=== PATIENT | male | born 1945 | race Caucasian/White ===

== ENCOUNTER 2017-01-03 12:51 | Inpatient (IN) | payer MEDICARE, OTHER ==
[2017-01-03] MEDS ORDERED: IPRATROPIUM-ALBUTEROL 3 ML NEB INHALATION STA (13:48)
--- NOTE | 2017-01-03 13:50 | ED ---
Fall HPI - General Chief Complaint: Fall Stated Complaint: Fall Time Seen by Provider: 01/03/17 13:21 Source: EMS Mode of arrival: EMS - History of Present Illness Initial Comments: The patient is a 71-year-old male who presents from [facility] with a chief complaint of fall. The patient was found on the floor, face down by staff earlier this afternoon. Nobody witnessed this fall. It is uncertain as to whether the patient hit his head during the fall. Afterwards, the patient was noted to be short of breath but had no other symptoms. His shortness of breath improved but his SpO2 has remained relatively low in the range of 90-92%. Reviewing the patient's medical record, his normal SpO2 is 93- 97%. The patient has an underlying history of dementia. He is AAO 1. Patient does not take any antiplatelet medications nor does he take any systemic anticoagulation. The patient has been acting normally since the fall, per staff at [facility]. The patient has no complaints. He denies any cough, fever or chills. Reviewing the patient's medical record, he does have a history of CHF as well as COPD. - Related Data Home Medications Medication Instructions Recorded Confirmed Budesonide/Formoterol Fumarate 2 puff INHALATION RT-BID 01/03/17 01/03/17 [Symbicort 160-4.5 Mcg Inhaler] Colloidal Oatmeal [Eucerin Eczema 1 applic TOPICAL BID 01/03/17 01/03/17 Relief] Dimethicone/Zinc Oxide [Inzo Zinc 1 applic TOPICAL BID 01/03/17 01/03/17 Oxide Barrier Cream] Docusate [Colace] 100 mg PO BID 01/03/17 01/03/17 Donepezil [Aricept] 5 mg PO HS 01/03/17 01/03/17 Lisinopril [Zestril] 20 mg PO BID 01/03/17 01/03/17 Loratadine [Claritin] 10 mg PO DAILY 01/03/17 01/03/17 Ocusoft Lid Scrub Pad 1 applic BOTH EYES HS 01/03/17 01/03/17 Sertraline HCl [Zoloft] 100 mg PO DAILY 01/03/17 01/03/17 Sertraline [Zoloft] 50 mg PO DAILY 01/03/17 01/03/17 Tamsulosin [Flomax] 0.4 mg PO HS 01/03/17 01/03/17 amLODIPine [Norvasc] 5 mg PO DAILY 01/03/17 01/03/17 Allergies Allergy/AdvReac Type Severity Reaction Status Date / Time No Known Allergies Allergy Verified 01/03/17 13:41 Review of Systems ROS Statement: Those systems with pertinent positive or pertinent negative responses have been documented in the HPI. ROS Other: All systems not noted in ROS Statement are negative. Limitations: ROS unobtainable due to patients medical condition (limited ROS secondary to underlying dementia) Constitutional: Denies: fever, chills Eyes: Denies: eye pain ENT: Denies: ear pain, throat pain, dental pain Respiratory: Reports: wheezes. Denies: cough, dyspnea, hemoptysis, stridor Cardiovascular: Denies: chest pain, palpitations, dyspnea on exertion Endocrine: Denies: fatigue Gastrointestinal: Denies: abdominal pain, nausea, vomiting, diarrhea, constipation Genitourinary: Denies: urgency, dysuria, frequency Musculoskeletal: Denies: back pain Skin: Denies: rash, lesions, change in color Neurological: Denies: headache, weakness, numbness, paresthesias Psychiatric: Denies: anxiety, depression Past Medical History Past Medical History: Heart Failure, COPD, Dementia, GERD/Reflux, Hypertension, Vascular Disorder History of Any Multi-Drug Resistant Organisms: None Reported Past Surgical History: Unable to Obtain Past Psychological History: Depression Smoking Status: Unknown if ever smoked Past Alcohol Use History: None Reported Past Drug Use History: None Reported General Exam Limitations: altered mental status General appearance: alert, in no apparent distress Head exam: Present: atraumatic, normocephalic, normal inspection Eye exam: Present: normal appearance, PERRL, EOMI. Absent: scleral icterus, conjunctival injection, periorbital swelling Pupils: Present: normal accommodation, other (2mm, equal and reactive) ENT exam: Present: normal exam, normal oropharynx, mucous membranes moist Neck exam: Present: normal inspection. Absent: tenderness Respiratory exam: Present: wheezes (trace expiratory wheezes appreciated bilaterally) Cardiovascular Exam: Present: regular rate, normal rhythm GI/Abdominal exam: Present: soft. Absent: distended, tenderness, guarding, rebound Extremities exam: Present: normal inspection, full ROM, normal capillary refill. Absent: tenderness, pedal edema Back exam: Present: normal inspection, full ROM, other (no step-offs noted on exam). Absent: tenderness, muscle spasm, paraspinal tenderness, vertebral tenderness Neurological exam: Present: alert, CN II-XII intact, other (AAOx1 (baseline is AAOx1)) Psychiatric exam: Present: normal affect, normal mood Skin exam: Present: warm, dry, intact, other (no signs of wound or injury) Course Vital Signs 01/03/17 01/03/17 01/03/17 13:21 14:52 14:56 Temperature 99.5 F Pulse Rate 91 80 83 Respiratory 18 18 Rate Blood Pressure 107/60 108/64 O2 Sat by Pulse 91 L 96 Oximetry 01/03/17 01/03/17 15:02 15:31 Temperature Pulse Rate 80 81 Respiratory 18 Rate Blood Pressure 122/100 O2 Sat by Pulse 96 Oximetry Medical Decision Making - Medical Decision Making Patient is a 71-year-old male who presents with a chief complaint of fall at nursing facility. The patient had an unwitnessed fall. As such, uncertain as to whether patient hit his head. The patient has no complaints here in the ED. He has had his baseline mentation and orientation. Physical exam is normal without any acute abnormality. Patient does not take any antiplatelet or anticoagulation medications. Check CT head and C-spine. Trauma labs including a CPK given the patient was down for unknown period of time. Check an EKG as well as a troponin. Given underlying history of CHF, also check a BNP. Provide patient with DuoNeb breathing treatment to see if this helps to improve his relatively low SpO2 to the normal range. 3:18 PM Straight catheterization attempted with no urine return. Patient's WBC is elevated without defined source of infection. Suspect COPD exacerbation secondary to patient's decreased SpO2 on initial presentation. This has improved following DuoNeb treatment. Patient could have potential UTI as well. Lactic Acid is not elevated. Blood cultures are pending. Will cover with Rocephin and Azithromycin to cover for potential respiratory and urinary source of infection. Will provide patient with IVF slowly given hx of CHF in the setting of elevated BNP. Patient resting comfortably at this point in time. 3:[address] Trotter, who accepts admission of the patient. He has requested a CT Chest. - Lab Data Result diagrams: 01/03/17 13:27 01/03/17 13:27 Lab Results 01/03/17 01/03/17 01/03/17 Range/Units 13:27 13:27 13:27 WBC 25.2 H* (3.8-10.6) k/uL RBC 4.88 (4.30-5.90) m/uL Hgb 15.2 (13.0-17.5) gm/dL Hct 47.4 (39.0-53.0) % MCV 97.0 (80.0-100.0) fL MCH 31.1 (25.0-35.0) pg MCHC 32.1 (31.0-37.0) g/dL RDW 14.5 (11.5-15.5) % Plt Count 160 (150-450) k/uL Neutrophils % (Manual) 90.5 % Band Neutrophils % 1.0 % Lymphocytes % (Manual) 3.0 % Monocytes % (Manual) 5.5 % Neutrophils # (Manual) 23.1 H (1.3-7.7) k/uL Lymphocytes # (Manual) 0.8 L (1.0-4.8) k/uL Monocytes # (Manual) 1.4 H (0-1.0) k/uL Nucleated RBCs 0 (0-0) /100 WBC Manual Slide Review Performed RBC Morphology Normal PT (9.0-12.0) sec INR (<1.1) APTT (22.0-30.0) sec Sodium 140 (137-145) mmol/L Potassium 4.6 (3.5-5.1) mmol/L Chloride 108 H (98-107) mmol/L Carbon Dioxide 22 (22-30) mmol/L Anion Gap 10 mmol/L BUN 24 H (9-20) mg/dL Creatinine 1.36 H (0.66-1.25) mg/dL Est GFR (MDRD) Af Amer >60 (>60 ml/min/1.73 sqM) Est GFR (MDRD) Non-Af 52 (>60 ml/min/1.73 sqM) Glucose 117 H (74-99) mg/dL Plasma Lactic Acid Michael (0.7-2.0) mmol/L Calcium 8.8 (8.4-10.2) mg/dL Magnesium 2.1 (1.6-2.3) mg/dL Total Bilirubin 1.5 H (0.2-1.3) mg/dL AST 30 (17-59) U/L ALT 12 L (21-72) U/L Alkaline Phosphatase 96 (38-126) U/L Creatine Kinase 92 (55-170) U/L Troponin I (0.000-0.034) ng/mL NT-Pro-B Natriuret Pep 2120 pg/mL Total Protein 7.3 (6.3-8.2) g/dL Albumin 3.8 (3.5-5.0) g/dL Blood Type Blood Type Recheck Antibody Screen Spec Expiration Date 01/03/17 01/03/17 01/03/17 Range/Units 13:27 13:27 13:27 WBC (3.8-10.6) k/uL RBC (4.30-5.90) m/uL Hgb (13.0-17.5) gm/dL Hct (39.0-53.0) % MCV (80.0-100.0) fL MCH (25.0-35.0) pg MCHC (31.0-37.0) g/dL RDW (11.5-15.5) % Plt Count (150-450) k/uL Neutrophils % (Manual) % Band Neutrophils % % Lymphocytes % (Manual) % Monocytes % (Manual) % Neutrophils # (Manual) (1.3-7.7) k/uL Lymphocytes # (Manual) (1.0-4.8) k/uL Monocytes # (Manual) (0-1.0) k/uL Nucleated RBCs (0-0) /100 WBC Manual Slide Review RBC Morphology PT 12.2 H (9.0-12.0) sec INR 1.2 (<1.1) APTT 26.2 (22.0-30.0) sec Sodium (137-145) mmol/L Potassium (3.5-5.1) mmol/L Chloride (98-107) mmol/L Carbon Dioxide (22-30) mmol/L Anion Gap mmol/L BUN (9-20) mg/dL Creatinine (0.66-1.25) mg/dL Est GFR (MDRD) Af Amer (>60 ml/min/1.73 sqM) Est GFR (MDRD) Non-Af (>60 ml/min/1.73 sqM) Glucose (74-99) mg/dL Plasma Lactic Acid Michael 1.7 (0.7-2.0) mmol/L Calcium (8.4-10.2) mg/dL Magnesium (1.6-2.3) mg/dL Total Bilirubin (0.2-1.3) mg/dL AST (17-59) U/L ALT (21-72) U/L Alkaline Phosphatase (38-126) U/L Creatine Kinase (55-170) U/L Troponin I 0.016 (0.000-0.034) ng/mL NT-Pro-B Natriuret Pep pg/mL Total Protein (6.3-8.2) g/dL Albumin (3.5-5.0) g/dL Blood Type Blood Type Recheck Antibody Screen Spec Expiration Date 01/03/17 Range/Units 14:45 WBC (3.8-10.6) k/uL RBC (4.30-5.90) m/uL Hgb (13.0-17.5) gm/dL Hct (39.0-53.0) % MCV (80.0-100.0) fL MCH (25.0-35.0) pg MCHC (31.0-37.0) g/dL RDW (11.5-15.5) % Plt Count (150-450) k/uL Neutrophils % (Manual) % Band Neutrophils % % Lymphocytes % (Manual) % Monocytes % (Manual) % Neutrophils # (Manual) (1.3-7.7) k/uL Lymphocytes # (Manual) (1.0-4.8) k/uL Monocytes # (Manual) (0-1.0) k/uL Nucleated RBCs (0-0) /100 WBC Manual Slide Review RBC Morphology PT (9.0-12.0) sec INR (<1.1) APTT (22.0-30.0) sec Sodium (137-145) mmol/L Potassium (3.5-5.1) mmol/L Chloride (98-107) mmol/L Carbon Dioxide (22-30) mmol/L Anion Gap mmol/L BUN (9-20) mg/dL Creatinine (0.66-1.25) mg/dL Est GFR (MDRD) Af Amer (>60 ml/min/1.73 sqM) Est GFR (MDRD) Non-Af (>60 ml/min/1.73 sqM) Glucose (74-99) mg/dL Plasma Lactic Acid Michael (0.7-2.0) mmol/L Calcium (8.4-10.2) mg/dL Magnesium (1.6-2.3) mg/dL Total Bilirubin (0.2-1.3) mg/dL AST (17-59) U/L ALT (21-72) U/L Alkaline Phosphatase (38-126) U/L Creatine Kinase (55-170) U/L Troponin I (0.000-0.034) ng/mL NT-Pro-B Natriuret Pep pg/mL Total Protein (6.3-8.2) g/dL Albumin (3.5-5.0) g/dL Blood Type A Positive Blood Type Recheck CABO Indicated Antibody Screen NEGATIVE Spec Expiration Date 01/06/2017 - 2315 - EKG Data -: EKG Interpreted by Me 01/03/17 13:37 EKG demonstrates normal sinus rhythm with a rate of 90. There are no concerning ST T changes. TN and QRS intervals are within normal limits. The QTc is slightly prolonged at 467. Disposition Clinical Impression: COPD with acute exacerbation, Leukocytosis, Acute respiratory failure with hypoxia, Fall Disposition: ADMITTED IP TO THIS HOSP Condition: Stable Referrals: Ro Baer MD [Primary Care Provider] - 1-2 days Decision to Admit Reason: Admit from EC Decision Date: 01/03/17 Decision Time: 15:56
[2017-01-03 14:09] LABS: CH 31.6; CHCM 32.8; HCT 47.4 % (39.0-53.0); HDW 2.38; HGB 15.2 gm/dL (13.0-17.5); MCH 31.1 pg (25.0-35.0); MCHC 32.1 g/dL (31.0-37.0); Mean Platelet Volume 7.3; RBC 4.88 m/uL (4.30-5.90); RDW 14.5 % (11.5-15.5); WBC (Perox) 24.51
[2017-01-03 14:10] LABS: WBC 25.2 k/uL (3.8-10.6)
[2017-01-03 14:15] LABS: INR 1.2 (<1.1); Partial Thromboplastin Time 26.2 sec (22.0-30.0); Prothrombin Time 12.2 sec (9.0-12.0)
[2017-01-03 14:17] LABS: Anion Gap 10 mmol/L; Calcium 8.8 mg/dL (8.4-10.2); Carbon Dioxide 22 mmol/L (22-30); Chloride 108 mmol/L (98-107); Creatine Kinase 92 U/L (55-170); Glucose 117 mg/dL (74-99); Non-African American GFR(MDRD) 52 (>60 ml/min/1.73 sqM); Sodium 140 mmol/L (137-145); Total Bilirubin 1.5 mg/dL (0.2-1.3)
[2017-01-03 14:19] LABS: Add Differential Manual Differential
[2017-01-03 14:21] LABS: Manual Review Performed; Nucleated Red Blood Cells 0 /100 WBC (0-0); Total Cells Counted 200
[2017-01-03 14:22] LABS: RBC Morphology Normal
[2017-01-03 14:24] LABS: Total Protein 7.3 g/dL (6.3-8.2)
[2017-01-03 14:25] LABS: Blood Urea Nitrogen 24 mg/dL (9-20); Potassium 4.6 mmol/L (3.5-5.1)
[2017-01-03 14:26] LABS: ALT 12 U/L (21-72); AST 30 U/L (17-59); Alkaline Phosphatase 96 U/L (38-126); Magnesium 2.1 mg/dL (1.6-2.3)
--- NOTE | 2017-01-03 14:39 | XR ---
EXAMINATION TYPE: XR chest 2V DATE OF EXAM: 01/03/2017 COMPARISON: NONE HISTORY: Trauma and pain TECHNIQUE: Frontal and lateral views of the chest are obtained. FINDINGS: Aortic stent graft is in place. Patient is rotated. There are overlying cardiac leads. Exa m is expiratory. No evident pneumothorax or pleural effusion. Arthropathy noted within the shoulders. No increased lung opacity. Heart is enlarged. Pulmonary vascularity and ernestina within normal limits. N o evident fracture. IMPRESSION: Cardiomegaly, expiratory rotated exam, follow-up as indicated.
--- NOTE | 2017-01-03 14:41 | XR ---
AP pelvis HISTORY: Trauma and pain Single frontal view of the pelvis No comparisons Bone mineralization is reduced which may limit sensitivity. Degenerative disc changes in the visualiz ed spine. Alignment and joint spaces are maintained. Probable vascular calcifications are present. IMPRESSION: No acute fracture or dislocation evident, follow-up as indicated.
--- NOTE | 2017-01-03 14:49 | CT ---
EXAMINATION TYPE: CT brain christel linda DATE OF EXAM: 01/03/2017 COMPARISON: NONE HISTORY: Fall CT DLP: 1841 mGycm Automated exposure control for dose reduction was used. TECHNIQUE: CT scan of the head and cervical spine are performed without contrast. FINDINGS: BRAIN: There are generalized changes of sulcal prominence and ventriculomegaly, compatible with atrop hic change. There is diffuse periventricular white matter lucency, compatible with chronic white mihaela er ischemic change. There is no acute focal lesion, mass effect or midline shift identified. I do not see evidence of intracranial blood. Visualized portions of the paranasal sinuses and mastoids are clear. No depressed skull fracture is s een. The zygomatic arches are intact. The pterygoid plates are intact. The orbital margins are intact . IMPRESSION: 1. NO ACUTE INTRACRANIAL ABNORMALITY. 2. ATROPHIC CHANGE. 3. CHRONIC WHITE MATTER ISCHEMIC CHANGE. CERVICAL SPINE: There are emphysematous changes within the lungs. Prevertebral soft tissues are normal. Vertebral body height and alignment are maintained. Atlantoaxial relationships are normal. There is d iffuse degenerative disc disease with relative sparing of C2-3. There is diffuse hypertrophic spondyl osis which is mild. There is uncovertebral joint disease most marked at C5-6. There is only mild face t arthropathy. No fracture is seen. No definite protrusion is seen. IMPRESSION: 1. NO ACUTE OSSEOUS LESION. 2. DEGENERATIVE CHANGE.
[2017-01-03] MEDS ORDERED: methylPREDNISolone SOD SUCCI 125 MG/2 ML VIAL IV STA (15:15)
[2017-01-03] MEDS ORDERED: SODIUM CHLORIDE 0.9% 1,000 ML IV ONE (15:16)
[2017-01-03] MEDS: SODIUM CHLORIDE 0.9% 1,000 ML IV SCH (15:27)
[2017-01-03] MEDS ORDERED: NALOXONE 0.4 MG/ML 1 ML VIAL IV PRN (15:56)
[2017-01-03] MEDS ORDERED: AZITHROMYCIN 500 MG in SODIUM CHLORIDE 0.9% 250 ML IVPB ONE (16:00)
--- NOTE | 2017-01-03 16:32 | CT ---
EXAMINATION TYPE: CT chest wo con DATE OF EXAM: 01/03/2017 COMPARISON: NONE HISTORY: Patient poor historian. Patient short of breath. CT DLP: 379.2 mGycm Automated exposure control for dose reduction was used. FINDINGS: There is bibasilar airspace disease, worse on the right than the left. There is an aortic stent graft in place. At the level of the aortic hiatus the thoracic aorta is aneu rysmal measuring 5.3 cm. There is no significant axillary, mediastinal or hilar adenopathy. The heart is enlarged. There is no pleural fluid. There is a 9 mm pericardial effusion. There is a 1.7 cm left adrenal mass. Visualized portions of the upper abdomen are otherwise unremarka ble. There is hypertrophic spondylosis and spondylosis deformans within the thoracic spine. IMPRESSION: 1. BIBASILAR AIRSPACE DISEASE, WORSE ON THE RIGHT THAN THE LEFT. 2. CARDIOMEGALY. 3. SMALL LEFT EFFUSION. 4. STATUS POST AORTIC STENT GRAFT. THE AORTA IS ANEURYSMAL DISTAL TO THIS WITH MAXIMAL TRANSVERSE [place] METER OF 5.3 CM. 5. 1.7 CM, LEFT ADRENAL MASS.
[2017-01-03] MEDS: IPRATROPIUM-ALBUTEROL 3 ML NEB INHALATION SCH ×3 (16:54→23:34)
--- NOTE | 2017-01-03 17:13 | P.HPIM ---
History of Present Illness H&P Date: 01/03/17 Chief Complaint: Bibasilar pneumonia/fall This is a 77-year-old male one of Dr. Baer with a previous medical history significant for hypertension and hypertensive cardio vascular disease, hyperlipidemia, history of aortic aneurysm status post endovascular stent graft , left adrenal mass, vascular dementia, patient appeared he was sent into the emergency department [facility] after he was found in his room slumped over for unknown time, patient apparently was seen in the emergency part of by Dr. Munson and he underwent computed tomography scan of the brain that showed no acute of normalities but small vessel disease, he underwent cervical spine computed tomography scan that was negative for acute fracture, patient also underwent pelvic x-ray that did not show any evidence of acute fracture, he had a chest x-ray initially that that showed possible pneumonia however this was followed by a computed tomography scan of the chest that showed evidence of the right more than the left bibasilar infiltrate along with the endovascular graft in the aorta along with dilatation of the aorta at 5.3 cm plus left adrenal mass , patient was started on IV antibiotic in the form of Rocephin and Zithromax was admitted to the hospital for evaluation and treatment. Review of Systems Constitutional: Reports fatigue, Reports malaise, Reports weakness, Denies chills, Denies chronic headaches, Denies chronic pain Eyes: denies blurred vision, denies bulging eye, denies decreased vision Ears: bilateral: decreased hearing Ears, nose, mouth and throat: Denies dysphagia, Denies neck fullness/pressure, Denies neck lump, Denies swelling in throat, Denies sore throat Cardiovascular: Reports high blood pressure, Denies chest pain, Denies decreased exercise tolerance, Denies dyspnea on exertion, Denies shortness of breath, Denies syncope Respiratory: Reports cough, Reports cough with sputum, Reports dyspnea, Denies congestion, Denies home oxygen, Denies sleep apnea, Denies snoring, Denies wheezing Gastrointestinal: Denies abdominal pain, Denies bloating, Denies BRBPR, Denies heartburn, Denies hematemesis, Denies melena, Denies nausea, Denies vomiting Genitourinary: Reports nocturia, Denies dysuria Musculoskeletal: Reports frequent falls, Reports gait dysfunction Musculoskeletal: absent: ankle pain, ankle stiffness, ankle swelling, elbow pain , elbow stiffness, elbow swelling, foot pain, foot stiffness, foot swelling, hand pain, hand stiffness, hand swelling, hip pain, hip stiffness, hip swelling , knee pain, knee stiffness, knee swelling, shoulder pain, shoulder stiffness, shoulder swelling, wrist pain, wrist stiffness, wrist swelling Integumentary: Denies pruritus, Denies rash Neurological: Reports change in mentation, Reports gait dysfunction, Reports memory loss, Reports weakness, Denies numbness Psychiatric: Reports memory loss, Denies anxiety, Denies depression Past Medical History Past Medical History: Heart Failure, COPD, Dementia, GERD/Reflux, Hypertension, Osteoarthritis (OA), Prostate Disorder, Vascular Disorder History of Any Multi-Drug Resistant Organisms: None Reported Additional Past Surgical History / Comment(s): Endovascular stent graft for aortic aneurysm. Past Psychological History: Depression Smoking Status: Unknown if ever smoked Past Alcohol Use History: None Reported Past Drug Use History: None Reported - Past Family History Mother Family Medical History: Myocardial Infarction (OR) (Mother in her 80s from myocardial infarction.) Father Family Medical History: Dementia (Father had dementia in his late 80s.) Sister(s) Family Medical History: Cancer (Patient had 3 sister 2 of them from some sort of cancer.) Son(s) Family Medical History: No Reported History (Patient has 2 sons no major medical problems) Medications and Allergies Home Medications Medication Instructions Recorded Confirmed Type Budesonide/Formoterol Fumarate 2 puff INHALATION RT-BID 01/03/17 01/03/17 History [Symbicort 160-4.5 Mcg Inhaler] Colloidal Oatmeal [Eucerin Eczema 1 applic TOPICAL BID 01/03/17 01/03/17 History Relief] Dimethicone/Zinc Oxide [Inzo Zinc 1 applic TOPICAL BID 01/03/17 01/03/17 History Oxide Barrier Cream] Docusate [Colace] 100 mg PO BID 01/03/17 01/03/17 History Donepezil [Aricept] 5 mg PO HS 01/03/17 01/03/17 History Lisinopril [Zestril] 20 mg PO BID 01/03/17 01/03/17 History Loratadine [Claritin] 10 mg PO DAILY 01/03/17 01/03/17 History Ocusoft Lid Scrub Pad 1 applic BOTH EYES HS 01/03/17 01/03/17 History Sertraline HCl [Zoloft] 100 mg PO DAILY 01/03/17 01/03/17 History Sertraline [Zoloft] 50 mg PO DAILY 01/03/17 01/03/17 History Tamsulosin [Flomax] 0.4 mg PO HS 01/03/17 01/03/17 History amLODIPine [Norvasc] 5 mg PO DAILY 01/03/17 01/03/17 History Allergies Allergy/AdvReac Type Severity Reaction Status Date / Time No Known Allergies Allergy Verified 01/03/17 13:41 Physical Exam Vitals: Vital Signs Temp Pulse Resp BP Pulse Ox 01/03/17 16:18 99.0 F 75 18 125/64 95 01/03/17 15:31 81 18 122/100 96 01/03/17 15:02 80 01/03/17 14:56 83 18 108/64 96 01/03/17 14:52 80 01/03/17 13:21 99.5 F 91 18 107/60 91 L Intake and Output 01/03/17 01/03/17 01/03/17 06:59 14:59 22:59 Other: Voiding Method Bedpan Diaper Weight 83.915 kg Patient Weight 01/04/17 06:59 Weight 83.915 kg - Constitutional General appearance: average body habitus, no acute distress - EENT Eyes: anicteric sclerae, EOMI, PERRLA, no ptosis, no scleral icterus, normal appearance ENT: hard of hearing, NA/AT, normal oropharynx, no thrush Ears: bilateral: normal - Neck Neck: no lymphadenopathy, normal ROM, no rigidity, no stridor, no thyromegaly Carotids: bilateral: upstroke delayed Thyroid: bilateral: normal size - Respiratory Respiratory: bilateral: diminished, dullness, rhonchi, prolonged expiration, negative: rales, wheezing - Cardiovascular Rhythm: regular Heart sounds: normal: S1, S2 Abnormal Heart Sounds: systolic murmur, no rub, no S3 Gallop, no S4 Gallop, no click - Gastrointestinal General gastrointestinal: normal bowel sounds, soft, no splenomegaly, no tenderness, no umbilical hernia, no ventral hernia - Genitourinary Male genitourinary: enlarged prostate - Integumentary Integumentary: normal, normal turgor - Musculoskeletal Musculoskeletal: generalized weakness - Psychiatric Psychiatric: no A&O x's 3, no appropriate affect, no intact judgment & insight Results CBC & Chem 7: 01/04/17 07:13 01/04/17 07:13 Labs: Abnormal Lab Results - Last 24 Hours (Table) 01/03/17 01/03/17 01/03/17 Range/Units 13:27 13:27 13:27 WBC 25.2 H* (3.8-10.6) k/uL Neutrophils # (Manual) 23.1 H (1.3-7.7) k/uL Lymphocytes # (Manual) 0.8 L (1.0-4.8) k/uL Monocytes # (Manual) 1.4 H (0-1.0) k/uL PT 12.2 H (9.0-12.0) sec Chloride 108 H (98-107) mmol/L BUN 24 H (9-20) mg/dL Creatinine 1.36 H (0.66-1.25) mg/dL Glucose 117 H (74-99) mg/dL Total Bilirubin 1.5 H (0.2-1.3) mg/dL ALT 12 L (21-72) U/L Thrombosis Risk Factor Assmnt - DVT/VTE Prophylaxis DVT/VTE Prophylaxis: Pharmacologic Prophylaxis ordered, Mechanical Prophylaxis ordered Assessment and Plan Plan: Assessment and plan: 1. Bibasilar pneumonia. Start the patient on Rocephin 1 g IV piggyback every 24 hours, and Zithromax 500 mg IV piggyback every 24 hours, DuoNeb nebulization 4 times every day, sputum culture, blood culture, monitor the patient oxygen level very closely. 2. Hypertension and hypertensive cardiovascular disease. Continue lisinopril 20 mg orally twice every day and amlodipine 5 mg orally once every day. 3. Hyperlipidemia. Low-cholesterol diet. 4. Abdominal aortic aneurysm status post endovascular vascular stent graft placement. Stable at this time. 5. Enlarged prostate. Continue Flomax 0.4 mg orally once every day. 6. Vascular dementia. Continue Aricept 5 mg orally bedtime. 7. ALLERGIC rhinitis. Continue Claritin 10 mg orally once every day. 8. DVT prophylaxis. Heparin 5000 units subcutaneously every 12 hours. 9. Leukocytosis likely related to bilateral pneumonia. Repeat CBC the next 24 hours. And repeat lactic acid. 10. GI prophylaxis. Protonix 40 mg orally once every day. 11. Admitted to inpatient. Estimate a length of stay 2 midnights. 12. Patient is full code.
[2017-01-03 19:08] LABS: Glucose,Whole Blood 204 mg/dL (75-99)
[2017-01-03 19:35] VITALS: BMI 25.0
[2017-01-03] MEDS ORDERED: [UNRECOGNIZED DRUG - OTHER] BOTH EYES SCH (21:00)
[2017-01-03] MEDS: ZINC OXIDE 20% OINT 28.4 GM TUBE TOPICAL SCH (21:07)
[2017-01-03] MEDS: LISINOPRIL 20 MG TAB PO SCH (21:07)
[2017-01-03] MEDS: DOCUSATE 100 MG CAP PO SCH (21:07)
[2017-01-03] MEDS: DONEPEZIL 5 MG TAB PO SCH (21:07)
[2017-01-03] MEDS: TAMSULOSIN 0.4 MG CAP.ER.24H PO SCH (21:07)
[2017-01-03] MEDS: HEPARIN SODIUM,PORCINE 5,000 UNIT/ML 1 ML VIAL SQ SCH (21:07)
[2017-01-03] MEDS: MINERAL OIL-WHITE PETROLATUM 120 GM JAR TOPICAL SCH (21:07)
[2017-01-03] MEDS: SYMBICORT 160-4.5 MCG INHALER INHALATION SCH (21:13)
[2017-01-03] MEDS ORDERED: IPRATROPIUM-ALBUTEROL 3 ML NEB INHALATION PRN (23:34)
[2017-01-04] MEDS: SODIUM CHLORIDE 0.9% 1,000 ML IV SCH ×2 (04:30→20:49)
[2017-01-04 07:34] LABS: Basophils % (A) 0 %; CH 31.3; CHCM 32.6; Eosinophils % (A) 0 %; HCT 42.4 % (39.0-53.0); HDW 2.52; HGB 13.7 gm/dL (13.0-17.5); Luc # (Auto) 0.11; Luc % (Auto) 1; Lymphocytes % (A) 5 %; MCH 31.2 pg (25.0-35.0); MCHC 32.4 g/dL (31.0-37.0); MCV 96.5 fL (80.0-100.0); Mean Platelet Volume 7.1; Monocytes # (A) 0.6 k/uL (0-1.0); Monocytes % (A) 3 %; Neutrophils # (A) 18.8 k/uL (1.3-7.7); Neutrophils % (A) 92 %; RBC 4.39 m/uL (4.30-5.90); RDW 14.2 % (11.5-15.5); WBC 20.6 k/uL (3.8-10.6); WBC (Perox) 20.98
[2017-01-04 07:54] LABS: Calcium 8.4 mg/dL (8.4-10.2); Magnesium 2.4 mg/dL (1.6-2.3); Phosphorous 3.1 mg/dL (2.5-4.5); Potassium 4.7 mmol/L (3.5-5.1); Total Bilirubin 0.5 mg/dL (0.2-1.3); Total Protein 6.3 g/dL (6.3-8.2)
[2017-01-04] MEDS: IPRATROPIUM-ALBUTEROL 3 ML NEB INHALATION SCH ×4 (07:56→19:44)
[2017-01-04] MEDS: SYMBICORT 160-4.5 MCG INHALER INHALATION SCH ×2 (07:57→19:44)
[2017-01-04] MEDS ORDERED: SERTRALINE 100 MG TAB PO SCH (09:00)
[2017-01-04] MEDS: DOCUSATE 100 MG CAP PO SCH ×2 (09:18→20:49)
[2017-01-04] MEDS: HEPARIN SODIUM,PORCINE 5,000 UNIT/ML 1 ML VIAL SQ SCH ×2 (09:18→20:50)
[2017-01-04] MEDS: amLODIPine 5 MG TAB PO SCH (09:18)
[2017-01-04] MEDS: LORATADINE 10 MG TAB PO SCH (09:19)
[2017-01-04] MEDS: ZINC OXIDE 20% OINT 28.4 GM TUBE TOPICAL SCH ×2 (09:19→20:56)
[2017-01-04] MEDS: SERTRALINE 50 MG TAB PO SCH (09:19)
[2017-01-04] MEDS: MINERAL OIL-WHITE PETROLATUM 120 GM JAR TOPICAL SCH ×2 (09:19→20:55)
[2017-01-04] MEDS: LISINOPRIL 20 MG TAB PO SCH ×2 (09:19→23:12)
--- NOTE | 2017-01-04 11:43 | CDI ---
In responding to this query, please exercise your independent professional judgment. The [facility] Coding Staff and Clinical Documentation Specialists appreciate your assistance in clarifying documentation, maintaining compliance with coding guidelines, accurately documenting patients condition and capturing severity of illness. The fact that a question is asked does not imply that any particular answer is desired or expected. Communication forms are a method of clarifying documentation and are not made part of the Legal Health Record. Thank you in advance for your clarification. Last Revision, September 2016 [facility] [address] [place] [address] Documentation Clarification Form Date: 01/04/2017 11:18:00 AM From: Priya Lanier RN, CDS Admit Date: 01/03/2017 3:56:00 PM Patient Name: Marvin Conn Visit Number: [id number] Dr. Rosa Trotter/Karon Hubbard CNP, 71 yo male presents after being found face down from unwitnessed fall. Reported to be short of breath after fall. History/Risk Factors: Heart Failure, HTN, Dementia, COPD, GERD, Clinical Indicators: CT CHEST: Cardiomegaly, small left effusion, past medical history of CHF VS/Pulse OX: 99.5 91 18 107/60 91ra, 96/2L, Respirations unlabored BNP:2120 Echocardiogram Results: none available Chest X Ray: Cardiomegaly Treatment: Home dose Norvasc 5mg daily and Lisinopril 20mg BID, Telemetry, treatment for pneumonia In your professional opinion, can you please clarify the acuity and type of CHF if known? : Compensated Chronic Diastolic Heart Failure Compensated Chronic Systolic Heart Failure Compensated Chronic combined Systolic/Diastolic Heart Failure: Unable to determine Other, please specify Please document in your progress notes and discharge summary in order to capture severity of illness and risk of mortality. Include clinical findings that support your diagnosis. FYI: Press F11 to launch patient chart. Place X here if this finding has no clinical significance, is not applicable or if you are not able to provide any additional documentation. MTDD
--- NOTE | 2017-01-04 12:25 | P.PN ---
Subjective This is a 77-year-old male one of Dr. Baer with a previous medical history significant for hypertension and hypertensive cardio vascular disease, hyperlipidemia, history of aortic aneurysm status post endovascular stent graft , left adrenal mass, vascular dementia, patient appeared he was sent into the emergency department [facility] after he was found in his room slumped over for unknown time, patient apparently was seen in the emergency part of by Dr. Munson and he underwent computed tomography scan of the brain that showed no acute of normalities but small vessel disease, he underwent cervical spine computed tomography scan that was negative for acute fracture, patient also underwent pelvic x-ray that did not show any evidence of acute fracture, he had a chest x-ray initially that that showed possible pneumonia however this was followed by a computed tomography scan of the chest that showed evidence of the right more than the left bibasilar infiltrate along with the endovascular graft in the aorta along with dilatation of the aorta at 5.3 cm plus left adrenal mass , patient was started on IV antibiotic in the form of Rocephin and Zithromax was admitted to the hospital for evaluation and treatment. 01/04: Patient sitting up in bed and is feeling a lot better today he continues to have some coughing and minimal from production he denies any chest pain, shortness breath, he has no abdominal pain, nausea, vomiting, or diarrhea. Objective - Vital Signs Vital signs: Vital Signs Temp 97.6 F 01/04/17 07:00 Pulse 80 01/04/17 11:43 Resp 16 01/04/17 07:57 BP 133/74 01/04/17 07:00 Pulse Ox 99 01/04/17 07:00 Intake & Output 01/03/17 01/04/17 01/04/17 18:59 06:59 18:59 Intake Total 660 Balance 660 Weight 83.9 kg Intake: Intake, IV Titration 600 Amount Sodium Chloride 0.9% 1, 600 000 ml @ 75 mls/hr IV . [id number] [facility] Rx#:[id number] Oral 60 Other: Voiding Method Toilet Urinal Urinal Urinal Diaper Diaper Diaper # Voids 1 2 - Exam - Constitutional General appearance: average body habitus, no acute distress - EENT Eyes: anicteric sclerae, EOMI, PERRLA, no ptosis, no scleral icterus, normal appearance ENT: hard of hearing, NA/AT, normal oropharynx, no thrush Ears: bilateral: normal - Neck Neck: no lymphadenopathy, normal ROM, no rigidity, no stridor, no thyromegaly Carotids: bilateral: upstroke delayed Thyroid: bilateral: normal size - Respiratory Respiratory: bilateral: diminished, dullness, rhonchi, prolonged expiration, negative: rales, wheezing - Cardiovascular Rhythm: regular Heart sounds: normal: S1, S2 Abnormal Heart Sounds: systolic murmur, no rub, no S3 Gallop, no S4 Gallop, no click - Gastrointestinal General gastrointestinal: normal bowel sounds, soft, no splenomegaly, no tenderness, no umbilical hernia, no ventral hernia - Genitourinary Male genitourinary: enlarged prostate - Integumentary Integumentary: normal, normal turgor - Musculoskeletal Musculoskeletal: generalized weakness - Psychiatric Psychiatric: no A&O x's 3, no appropriate affect, no intact judgment & insight - Labs CBC & Chem 7: 01/04/17 07:13 01/04/17 07:13 Labs: Abnormal Lab Results - Last 24 Hours (Table) 01/03/17 01/03/17 01/03/17 Range/Units 13:27 13:27 13:27 WBC 25.2 H* (3.8-10.6) k/uL Plt Count (150-450) k/uL Neutrophils # (1.3-7.7) k/uL Neutrophils # (Manual) 23.1 H (1.3-7.7) k/uL Lymphocytes # (Manual) 0.8 L (1.0-4.8) k/uL Monocytes # (Manual) 1.4 H (0-1.0) k/uL PT 12.2 H (9.0-12.0) sec Chloride 108 H (98-107) mmol/L BUN 24 H (9-20) mg/dL Creatinine 1.36 H (0.66-1.25) mg/dL Glucose 117 H (74-99) mg/dL POC Glucose (mg/dL) (75-99) mg/dL Magnesium (1.6-2.3) mg/dL Total Bilirubin 1.5 H (0.2-1.3) mg/dL ALT 12 L (21-72) U/L Albumin (3.5-5.0) g/dL 01/03/17 01/04/17 01/04/17 Range/Units 19:06 07:13 07:13 WBC 20.6 H (3.8-10.6) k/uL Plt Count 144 L (150-450) k/uL Neutrophils # 18.8 H (1.3-7.7) k/uL Neutrophils # (Manual) (1.3-7.7) k/uL Lymphocytes # (Manual) (1.0-4.8) k/uL Monocytes # (Manual) (0-1.0) k/uL PT (9.0-12.0) sec Chloride 112 H (98-107) mmol/L BUN 35 H (9-20) mg/dL Creatinine 1.41 H (0.66-1.25) mg/dL Glucose 121 H (74-99) mg/dL POC Glucose (mg/dL) 204 H (75-99) mg/dL Magnesium 2.4 H (1.6-2.3) mg/dL Total Bilirubin (0.2-1.3) mg/dL ALT 20 L (21-72) U/L Albumin 3.1 L (3.5-5.0) g/dL Assessment and Plan Plan: Assessment and plan: 1. Bibasilar pneumonia. Start the patient on Rocephin 1 g IV piggyback every 24 hours, and Zithromax 500 mg IV piggyback every 24 hours, DuoNeb nebulization 4 times every day, sputum culture, blood culture, monitor the patient oxygen level very closely. 2. Hypertension and hypertensive cardiovascular disease. Continue lisinopril 20 mg orally twice every day and amlodipine 5 mg orally once every day. 3. Hyperlipidemia. Low-cholesterol diet. 4. Abdominal aortic aneurysm status post endovascular vascular stent graft placement. Stable at this time. 5. Enlarged prostate. Continue Flomax 0.4 mg orally once every day. 6. Vascular dementia. Continue Aricept 5 mg orally bedtime. 7. ALLERGIC rhinitis. Continue Claritin 10 mg orally once every day. 8. DVT prophylaxis. Heparin 5000 units subcutaneously every 12 hours. 9. Leukocytosis likely related to bilateral pneumonia. Repeat CBC the next 24 hours. And repeat lactic acid. 10. GI prophylaxis. Protonix 40 mg orally once every day. 11. Admitted to inpatient. Estimate a length of stay 2 midnights. 12. Patient is full code. 13. Back to [facility] on the [place] and few days.
[2017-01-04] MEDS ORDERED: AZITHROMYCIN 500 MG in SODIUM CHLORIDE 0.9% 250 ML IVPB SCH (18:00)
[2017-01-04 19:49] LABS: Appearance,Urine Clear (Clear); Bilirubin,Urine Negative (Negative); Glucose,Urine (UA) Negative (Negative); Ketones,Urine Negative (Negative); Leukocyte Esterase,Urine Trace (Negative); Nitrite,Urine Negative (Negative); Particle Count 3036; Protein,Urine Trace (Negative); RBC,Urine 4 /hpf (0-5); Specific Gravity,Urine 1.014 (1.001-1.035); UA Billing (MACRO vs. MICRO) MICRO; Urobilinogen,Urine <2.0 mg/dL (<2.0); WBC,Urine 1 /hpf (0-5)
[2017-01-04] MEDS: DONEPEZIL 5 MG TAB PO SCH (20:49)
[2017-01-04] MEDS: TAMSULOSIN 0.4 MG CAP.ER.24H PO SCH (20:56)
[2017-01-05 06:19] LABS: Basophils % (A) 0 %; CH 31.1; CHCM 32.5; Eosinophils % (A) 0 %; HCT 38.2 % (39.0-53.0); HDW 2.52; HGB 12.6 gm/dL (13.0-17.5); Luc # (Auto) 0.11; Luc % (Auto) 1; Lymphocytes # (A) 1.3 k/uL (1.0-4.8); Lymphocytes % (A) 12 %; MCH 31.7 pg (25.0-35.0); MCV 96.3 fL (80.0-100.0); Mean Platelet Volume 7.3; Monocytes # (A) 0.4 k/uL (0-1.0); Monocytes % (A) 4 %; Neutrophils # (A) 9.6 k/uL (1.3-7.7); Neutrophils % (A) 83 %; RBC 3.97 m/uL (4.30-5.90); RDW 14.2 % (11.5-15.5); WBC 11.5 k/uL (3.8-10.6)
[2017-01-05 06:40] LABS: ALT 23 U/L (21-72); AST 30 U/L (17-59); Alkaline Phosphatase 68 U/L (38-126); Anion Gap 5 mmol/L; Blood Urea Nitrogen 37 mg/dL (9-20); Calcium 8.1 mg/dL (8.4-10.2); Carbon Dioxide 25 mmol/L (22-30); Chloride 112 mmol/L (98-107); Glucose 85 mg/dL (74-99); Non-African American GFR(MDRD) 54 (>60 ml/min/1.73 sqM); Potassium 4.2 mmol/L (3.5-5.1); Sodium 142 mmol/L (137-145); Total Bilirubin 0.5 mg/dL (0.2-1.3); Total Protein 5.6 g/dL (6.3-8.2)
[2017-01-05] MEDS: SYMBICORT 160-4.5 MCG INHALER INHALATION SCH ×2 (07:15→20:09)
[2017-01-05] MEDS: IPRATROPIUM-ALBUTEROL 3 ML NEB INHALATION SCH ×4 (07:15→20:09)
[2017-01-05] MEDS: LORATADINE 10 MG TAB PO SCH (08:26)
[2017-01-05] MEDS: LISINOPRIL 20 MG TAB PO SCH ×2 (08:26→21:04)
[2017-01-05] MEDS: SERTRALINE 50 MG TAB PO SCH (08:26)
[2017-01-05] MEDS: DOCUSATE 100 MG CAP PO SCH ×2 (08:26→21:04)
[2017-01-05] MEDS: amLODIPine 5 MG TAB PO SCH (08:27)
[2017-01-05] MEDS: MINERAL OIL-WHITE PETROLATUM 120 GM JAR TOPICAL SCH ×2 (08:27→21:05)
[2017-01-05] MEDS: HEPARIN SODIUM,PORCINE 5,000 UNIT/ML 1 ML VIAL SQ SCH ×2 (08:27→21:04)
[2017-01-05] MEDS: ZINC OXIDE 20% OINT 28.4 GM TUBE TOPICAL SCH ×2 (08:27→21:05)
[2017-01-05] MEDS: SODIUM CHLORIDE 0.9% 1,000 ML IV SCH ×2 (08:39→22:13)
--- NOTE | 2017-01-05 12:02 | P.CNPUL ---
History of Present Illness Consult date: 01/05/17 Reason for consult: pneumonia Chief complaint: Fall History of present illness: This is a 71-year-old gentleman who presented to the emergency department from [facility] on 01/03/2017 with a chief complaint of a fall. The patient is a poor historian and cannot further elaborate. He states he knows he fell and was having some shortness of breath. He does have a history of dementia. He denies fevers, chills. He does have a cough which is nonproductive. The patient states he used to smoke and "quit when I came here." The patient did have a CT of the chest which showed bibasilar airspace disease right greater than left, cardiomegaly, small left pleural effusion, aortic stent graft, aortic aneurysm, 1.7 cm left adrenal mass. The patient did have an elevated white blood cell count on admission. T-max is 99.5. He states he does not use any inhalers or nebulizer regularly. Review of Systems All systems: negative Past Medical History Past Medical History: Heart Failure, COPD, Dementia, GERD/Reflux, Hypertension, Osteoarthritis (OA), Prostate Disorder, Vascular Disorder History of Any Multi-Drug Resistant Organisms: None Reported Past Surgical History: Unable to Obtain Additional Past Surgical History / Comment(s): Endovascular stent graft for aortic aneurysm. Past Psychological History: Depression Smoking Status: Unknown if ever smoked Past Alcohol Use History: None Reported Past Drug Use History: None Reported - Past Family History Mother Family Medical History: Myocardial Infarction (MA) (Mother in her 80s from myocardial infarction.) Father Family Medical History: Dementia (Father had dementia in his late 80s.) Sister(s) Family Medical History: Cancer (Patient had 3 sister 2 of them from some sort of cancer.) Son(s) Family Medical History: No Reported History (Patient has 2 sons no major medical problems) Medications and Allergies Home Medications Medication Instructions Recorded Confirmed Type Budesonide/Formoterol Fumarate 2 puff INHALATION RT-BID 01/03/17 01/03/17 History [Symbicort 160-4.5 Mcg Inhaler] Colloidal Oatmeal [Eucerin Eczema 1 applic TOPICAL BID 01/03/17 01/03/17 History Relief] Dimethicone/Zinc Oxide [Inzo Zinc 1 applic TOPICAL BID 01/03/17 01/03/17 History Oxide Barrier Cream] Docusate [Colace] 100 mg PO BID 01/03/17 01/03/17 History Donepezil [Aricept] 5 mg PO HS 01/03/17 01/03/17 History Lisinopril [Zestril] 20 mg PO BID 01/03/17 01/03/17 History Loratadine [Claritin] 10 mg PO DAILY 01/03/17 01/03/17 History Ocusoft Lid Scrub Pad 1 applic BOTH EYES HS 01/03/17 01/03/17 History Sertraline HCl [Zoloft] 100 mg PO DAILY 01/03/17 01/03/17 History Sertraline [Zoloft] 50 mg PO DAILY 01/03/17 01/03/17 History Tamsulosin [Flomax] 0.4 mg PO HS 01/03/17 01/03/17 History amLODIPine [Norvasc] 5 mg PO DAILY 01/03/17 01/03/17 History Allergies Allergy/AdvReac Type Severity Reaction Status Date / Time No Known Allergies Allergy Verified 01/03/17 13:41 Physical Exam Osteopathic Statement: *. No significant issues noted on an osteopathic structural exam other than those noted in the History and Physical/Consult. Vitals: Vital Signs Temp Pulse Pulse Pulse Resp BP Pulse Ox 01/05/17 11:48 84 01/05/17 11:36 84 16 01/05/17 08:00 60 71 16 01/05/17 07:28 82 01/05/17 07:16 82 16 01/05/17 07:00 98.9 F 71 18 126/71 96 01/05/17 00:00 60 65 16 01/04/17 23:00 98.6 F 65 16 108/69 96 01/04/17 19:58 84 01/04/17 19:44 80 01/04/17 15:30 80 01/04/17 15:18 84 01/04/17 15:00 97.9 F 64 18 116/65 97 Intake and Output 01/04/17 01/05/17 01/05/17 22:59 06:59 14:59 Intake Total 1550 765 Balance 1550 765 Intake: Intake, IV Titration 750 525 Amount Sodium Chloride 0.9% 1, 750 525 000 ml @ 75 mls/hr IV . [id number] [facility] Rx#:[id number] Oral 800 240 Other: Voiding Method Urinal Urinal Urinal Diaper Diaper Diaper # Voids 2 1 1 Gen.: Patient is alert, no acute distress Cardiovascular: Regular rate and rhythm, S1/S2 Lungs: Coarse breath sounds bilaterally Abdomen: Soft nontender nondistended positive bowel sounds Extremities: No edema Results - Laboratory Findings CBC and BMP: 01/05/17 05:49 01/05/17 05:49 PT/INR, D-dimer PT 12.2 sec (9.0-12.0) H 01/03/17 13:27 INR 1.2 (<1.1) 01/03/17 13:27 Abnormal lab findings: Abnormal Labs 01/03/17 01/03/17 01/03/17 13:27 13:27 13:27 WBC 25.2 H* RBC Hgb Hct Plt Count Neutrophils # Neutrophils # (Manual) 23.1 H Lymphocytes # (Manual) 0.8 L Monocytes # (Manual) 1.4 H PT 12.2 H Chloride 108 H BUN 24 H Creatinine 1.36 H Glucose 117 H POC Glucose (mg/dL) Calcium Magnesium Total Bilirubin 1.5 H ALT 12 L Total Protein Albumin Urine Protein Urine Blood Ur Leukocyte Esterase Hyaline Casts 01/03/17 01/04/17 01/04/17 19:06 07:13 07:13 WBC 20.6 H RBC Hgb Hct Plt Count 144 L Neutrophils # 18.8 H Neutrophils # (Manual) Lymphocytes # (Manual) Monocytes # (Manual) PT Chloride 112 H BUN 35 H Creatinine 1.41 H Glucose 121 H POC Glucose (mg/dL) 204 H Calcium Magnesium 2.4 H Total Bilirubin ALT 20 L Total Protein Albumin 3.1 L Urine Protein Urine Blood Ur Leukocyte Esterase Hyaline Casts 01/04/17 01/05/17 01/05/17 19:30 05:49 05:49 WBC 11.5 H RBC 3.97 L Hgb 12.6 L Hct 38.2 L Plt Count 145 L Neutrophils # 9.6 H Neutrophils # (Manual) Lymphocytes # (Manual) Monocytes # (Manual) PT Chloride 112 H BUN 37 H Creatinine 1.31 H Glucose POC Glucose (mg/dL) Calcium 8.1 L Magnesium Total Bilirubin ALT Total Protein 5.6 L Albumin 2.7 L Urine Protein Trace H Urine Blood Small H Ur Leukocyte Esterase Trace H Hyaline Casts 3 H - Diagnostic Findings Chest x-ray: report reviewed, image reviewed CT scan - chest: report reviewed, image reviewed Assessment and Plan Plan: Bibasilar pneumonia 2 out of 4 SIRS, sepsis Small left pleural effusion History of tobacco abuse Likely underlying COPD Anemia Mild thrombocytopenia Acute kidney injury, unknown baseline creatinine Hypertension Hypertensive cardiovascular disease Dyslipidemia Abdominal aortic aneurysm status post stent graft Vascular dementia 1.7 cm left adrenal mass GERD BPH O2 to maintain saturation greater than or equal to 88% Antibiotics: Azithromycin and Rocephin Bronchodilators Symbicort - may switch to Pulmicort nebs if patient unable to perform properly Gentle hydration Smoking cessation Blood, urine, sputum cultures Monitor renal function Incentive spirometry and pulmonary hygiene Aspiration precautions GI and DVT prophylaxis Consult speech therapy for swallow evaluation Thank you for this consultation. We will continue to follow along.
--- NOTE | 2017-01-05 14:17 | P.PN ---
Subjective This is a 77-year-old male one of Dr. Baer with a previous medical history significant for hypertension and hypertensive cardio vascular disease, hyperlipidemia, history of aortic aneurysm status post endovascular stent graft , left adrenal mass, vascular dementia, patient appeared he was sent into the emergency department [facility] after he was found in his room slumped over for unknown time, patient apparently was seen in the emergency part of by Dr. Munson and he underwent computed tomography scan of the brain that showed no acute of normalities but small vessel disease, he underwent cervical spine computed tomography scan that was negative for acute fracture, patient also underwent pelvic x-ray that did not show any evidence of acute fracture, he had a chest x-ray initially that that showed possible pneumonia however this was followed by a computed tomography scan of the chest that showed evidence of the right more than the left bibasilar infiltrate along with the endovascular graft in the aorta along with dilatation of the aorta at 5.3 cm plus left adrenal mass , patient was started on IV antibiotic in the form of Rocephin and Zithromax was admitted to the hospital for evaluation and treatment. 6: Patient sitting up in bed and is feeling a lot better today he continues to have some coughing and minimal from production he denies any chest pain, shortness breath, he has no abdominal pain, nausea, vomiting, or diarrhea. 01/05: We'll plan to repeat chest x-ray. Consult with Dr. Hinson added. White count is down to 11.5. He has been afebrile. Social work is making arrangements for discharge which we anticipate for tomorrow. Objective - Vital Signs Vital signs: Vital Signs Temp 98.9 F 01/05/17 07:00 Pulse 82 01/05/17 07:28 Resp 16 01/05/17 07:16 BP 126/71 01/05/17 07:00 Pulse Ox 96 01/05/17 07:00 Intake & Output 01/04/17 01/05/17 01/05/17 18:59 06:59 18:59 Intake Total 1200 2315 Balance 1200 2315 Intake: Intake, IV Titration 1275 Amount Sodium Chloride 0.9% 1, 1275 000 ml @ 75 mls/hr IV . [id number] [facility] Rx#:[id number] Oral 1200 1040 Other: Voiding Method Urinal Urinal Diaper Diaper # Voids 1 1 - Exam General appearance: average body habitus, no acute distress - EENT Eyes: anicteric sclerae, EOMI, PERRLA, no ptosis, no scleral icterus, normal appearance ENT: hard of hearing, NA/AT, normal oropharynx, no thrush Ears: bilateral: normal - Neck Neck: no lymphadenopathy, normal ROM, no rigidity, no stridor, no thyromegaly Carotids: bilateral: upstroke delayed Thyroid: bilateral: normal size - Respiratory Respiratory: bilateral: diminished, dullness, rhonchi, prolonged expiration, negative: rales, wheezing - Cardiovascular Rhythm: regular Heart sounds: normal: S1, S2 Abnormal Heart Sounds: systolic murmur, no rub, no S3 Gallop, no S4 Gallop, no click - Gastrointestinal General gastrointestinal: normal bowel sounds, soft, no splenomegaly, no tenderness, no umbilical hernia, no ventral hernia - Genitourinary Male genitourinary: enlarged prostate - Integumentary Integumentary: normal, normal turgor - Musculoskeletal Musculoskeletal: generalized weakness - Psychiatric Psychiatric: no A&O x's 3, no appropriate affect, no intact judgment & insight - Labs CBC & Chem 7: 01/05/17 05:49 01/05/17 05:49 Labs: Abnormal Lab Results - Last 24 Hours (Table) 01/04/17 01/05/17 01/05/17 Range/Units 19:30 05:49 05:49 WBC 11.5 H (3.8-10.6) k/uL RBC 3.97 L (4.30-5.90) m/uL Hgb 12.6 L (13.0-17.5) gm/dL Hct 38.2 L (39.0-53.0) % Plt Count 145 L (150-450) k/uL Neutrophils # 9.6 H (1.3-7.7) k/uL Chloride 112 H (98-107) mmol/L BUN 37 H (9-20) mg/dL Creatinine 1.31 H (0.66-1.25) mg/dL Calcium 8.1 L (8.4-10.2) mg/dL Total Protein 5.6 L (6.3-8.2) g/dL Albumin 2.7 L (3.5-5.0) g/dL Urine Protein Trace H (Negative) Urine Blood Small H (Negative) Ur Leukocyte Esterase Trace H (Negative) Hyaline Casts 3 H (0-2) /lpf Microbiology - Last 24 Hours (Table) 01/04/17 19:30 Urine Culture - Preliminary Urine,Catheterized 01/03/17 13:27 Blood Culture - Preliminary Blood No Growth after 24 hours Assessment and Plan Plan: 1. Bibasilar pneumonia. Start the patient on Rocephin 1 g IV piggyback every 24 hours, and Zithromax 500 mg IV piggyback every 24 hours, DuoNeb nebulization 4 times every day, sputum culture, blood culture, monitor the patient oxygen level very closely. Consult with Dr. Hinson. Repeat chest x-ray. 2. Hypertension and hypertensive cardiovascular disease. Continue lisinopril 20 mg orally twice every day and amlodipine 5 mg orally once every day. 3. Hyperlipidemia. Low-cholesterol diet. 4. Abdominal aortic aneurysm status post endovascular vascular stent graft placement. Stable at this time. 5. Enlarged prostate. Continue Flomax 0.4 mg orally once every day. 6. Vascular dementia. Continue Aricept 5 mg orally bedtime. 7. ALLERGIC rhinitis. Continue Claritin 10 mg orally once every day. 8. DVT prophylaxis. Heparin 5000 units subcutaneously every 12 hours. 9. Leukocytosis likely related to bilateral pneumonia. Repeat CBC the next 24 hours. And repeat lactic acid. 10. GI prophylaxis. Protonix 40 mg orally once every day. 11. Admitted to inpatient. Estimate a length of stay 2 midnights. 12. Patient is full code. 13. Back to [facility] on the [place] tomorrow. Impression and plan of care have been directed as dictated by the signing physician. Karon Hubbard nurse practitioner acting as scribe for signing physician.
--- NOTE | 2017-01-05 15:31 | FL ---
EXAMINATION TYPE: FL barium swallow w video DATE OF EXAM ORDERED: 01/05/2017 HISTORY: r/o aspiration. COMPARISON: None. TECHNIQUE: The patient was challenged with varying food substances ranging from thin liquids through solids. FINDINGS: The patient had deep penetration with both thin liquids and nectar thick liquids. There we re transient residuals. IMPRESSION: THIS PATIENT AT INCREASED RISK FOR ASPIRATION WITH BOTH THIN AND NECTAR THICK LIQUIDS.
[2017-01-05] MEDS ORDERED: AZITHROMYCIN 500 MG TAB PO SCH (18:00)
[2017-01-05] MEDS: DONEPEZIL 5 MG TAB PO SCH (21:04)
[2017-01-05] MEDS: TAMSULOSIN 0.4 MG CAP.ER.24H PO SCH (21:05)
[2017-01-06] MEDS: IPRATROPIUM-ALBUTEROL 3 ML NEB INHALATION SCH ×3 (07:21→16:08)
[2017-01-06] MEDS: SYMBICORT 160-4.5 MCG INHALER INHALATION SCH (07:21)
--- NOTE | 2017-01-06 07:40 | XR ---
EXAMINATION TYPE: XR chest 2V DATE OF EXAM: 01/06/2017 COMPARISON: Prior chest x-ray 01/03/2017 HISTORY: Pneumonia follow-up TECHNIQUE: Frontal and lateral views of the chest are obtained. FINDINGS: There are overlying cardiac leads and the patient is rotated. No evident pneumothorax or p leural effusion. The heart remains enlarged. Pulmonary vascularity and ernestina are stable. Aortic stent graft is again noted. Some minimal patchy density persists at the right lung base. IMPRESSION: Findings may represent basilar atelectasis or scarring.
[2017-01-06] MEDS: HEPARIN SODIUM,PORCINE 5,000 UNIT/ML 1 ML VIAL SQ SCH (08:31)
[2017-01-06] MEDS: LISINOPRIL 20 MG TAB PO SCH (08:31)
[2017-01-06] MEDS: DOCUSATE 100 MG CAP PO SCH (08:31)
[2017-01-06] MEDS: SERTRALINE 50 MG TAB PO SCH (08:31)
[2017-01-06] MEDS: amLODIPine 5 MG TAB PO SCH (08:31)
[2017-01-06] MEDS: LORATADINE 10 MG TAB PO SCH (08:32)
[2017-01-06] MEDS: ZINC OXIDE 20% OINT 28.4 GM TUBE TOPICAL SCH (08:35)
[2017-01-06] MEDS: MINERAL OIL-WHITE PETROLATUM 120 GM JAR TOPICAL SCH (08:35)
[2017-01-06 08:54] LABS: Basophils # (A) 0.1 k/uL (0-0.2); Basophils % (A) 1 %; CH 31.1; CHCM 31.5; Eosinophils # (A) 0.1 k/uL (0-0.7); Eosinophils % (A) 2 %; HCT 40.4 % (39.0-53.0); HDW 2.44; HGB 12.6 gm/dL (13.0-17.5); Luc # (Auto) 0.08; Luc % (Auto) 2; Lymphocytes # (A) 1.3 k/uL (1.0-4.8); Lymphocytes % (A) 24 %; MCH 31.1 pg (25.0-35.0); MCHC 31.3 g/dL (31.0-37.0); MCV 99.3 fL (80.0-100.0); Mean Platelet Volume 6.9; Monocytes # (A) 0.3 k/uL (0-1.0); Monocytes % (A) 6 %; Neutrophils # (A) 3.4 k/uL (1.3-7.7); Neutrophils % (A) 66 %; RBC 4.07 m/uL (4.30-5.90); RDW 14.2 % (11.5-15.5); WBC 5.2 k/uL (3.8-10.6); WBC (Perox) 5.54
[2017-01-06 09:08] LABS: ALT 31 U/L (21-72); AST 28 U/L (17-59); Alkaline Phosphatase 67 U/L (38-126); Anion Gap 5 mmol/L; Blood Urea Nitrogen 24 mg/dL (9-20); Calcium 8.2 mg/dL (8.4-10.2); Carbon Dioxide 27 mmol/L (22-30); Chloride 113 mmol/L (98-107); Glucose 83 mg/dL (74-99); Non-African American GFR(MDRD) >60 (>60 ml/min/1.73 sqM); Potassium 3.9 mmol/L (3.5-5.1); Sodium 145 mmol/L (137-145); Total Bilirubin 0.4 mg/dL (0.2-1.3); Total Protein 5.8 g/dL (6.3-8.2)
[2017-01-06 09:10] VITALS: RESP 18
[2017-01-06] MEDS: SODIUM CHLORIDE 0.9% 1,000 ML IV SCH (11:26)
--- NOTE | 2017-01-06 14:40 | P.DS ---
Providers Date of admission: 01/03/17 15:56 Expected date of discharge: 01/06/17 Attending physician: Rosa Trotter Consults: 01/05/17 11:05 Consult Physician Routine Consulting Provider: Sydnee Hinson Consult Reason/Comments: pneumonia Do you want consulting provider notified?: Yes Primary care physician: Ro Baer [facility] Course: his is a 77-year-old male one of Dr. Baer with a previous medical history significant for hypertension and hypertensive cardio vascular disease, hyperlipidemia, history of aortic aneurysm status post endovascular stent graft , left adrenal mass, vascular dementia, patient appeared he was sent into the emergency department [facility] after he was found in his room slumped over for unknown time, patient apparently was seen in the emergency part of by Dr. Munson and he underwent computed tomography scan of the brain that showed no acute of normalities but small vessel disease, he underwent cervical spine computed tomography scan that was negative for acute fracture, patient also underwent pelvic x-ray that did not show any evidence of acute fracture, he had a chest x-ray initially that that showed possible pneumonia however this was followed by a computed tomography scan of the chest that showed evidence of the right more than the left bibasilar infiltrate along with the endovascular graft in the aorta along with dilatation of the aorta at 5.3 cm plus left adrenal mass , patient was started on IV antibiotic in the form of Rocephin and Zithromax was admitted to the hospital for evaluation and treatment. 01/04: Patient sitting up in bed and is feeling a lot better today he continues to have some coughing and minimal from production he denies any chest pain, shortness breath, he has no abdominal pain, nausea, vomiting, or diarrhea. 01/05: We'll plan to repeat chest x-ray. Consult with Dr. Hinson added. White count is down to 11.5. He has been afebrile. Social work is making arrangements for discharge which we anticipate for tomorrow. 01/06: Patient was seen by speech therapy and underwent modified barium swallow was some concern for aspiration. Recommendations for eating at 90, no straws, liquids from a cup, small bites and sips and direct supervision. Diet recommendation was regular with thin liquids. Speech also recommended that patient follow-up with an ENT consult as an outpatient as there is concern for vocal cord pathology. White count is now down to 5.2. Patient has been afebrile. Blood culture showing no growth after 48 hours. Urine cultures been finalized with contamination. Patient's breathing status is stable and he will be discharged back to [facility] today in stable condition. Discharge diagnoses: 1. Bibasilar pneumonia. 2. Hypertension and hypertensive cardiovascular disease. 3. Hyperlipidemia. 4. Abdominal aortic aneurysm status post endovascular vascular stent graft placement. 5. Enlarged prostate. 6. Vascular dementia. 7. ALLERGIC rhinitis. 8. Leukocytosis likely related to bilateral pneumonia. Back to [facility] Impression and plan of care have been directed as dictated by the signing physician. Karon Hubbard nurse practitioner acting as scribe for signing physicia Patient Condition at Discharge: Good Plan - Discharge Summary New Discharge Prescriptions: New Azithromycin [Zithromax] 500 mg PO Q24H #7 tab Ipratropium-Albuterol Nebulize [Duoneb 0.5 mg-3 mg/3 ml Soln] 3 ml INHALATION RT-QID neb Continue Colloidal Oatmeal [Eucerin Eczema Relief] 1 applic TOPICAL BID Budesonide/Formoterol Fumarate [Symbicort 160-4.5 Mcg Inhaler] 2 puff INHALATION RT-BID Lisinopril [Zestril] 20 mg PO BID Docusate [Colace] 100 mg PO BID Sertraline [Zoloft] 50 mg PO DAILY Sertraline HCl [Zoloft] 100 mg PO DAILY Ocusoft Lid Scrub Pad 1 applic BOTH EYES HS Loratadine [Claritin] 10 mg PO DAILY amLODIPine [Norvasc] 5 mg PO DAILY Tamsulosin [Flomax] 0.4 mg PO HS Donepezil [Aricept] 5 mg PO HS Dimethicone/Zinc Oxide [Inzo Zinc Oxide Barrier Cream] 1 applic TOPICAL BID Discharge Medication List Budesonide/Formoterol Fumarate [Symbicort 160-4.5 Mcg Inhaler] 2 puff INHALATION RT-BID 01/03/17 [History] Colloidal Oatmeal [Eucerin Eczema Relief] 1 applic TOPICAL BID 01/03/17 [History ] Dimethicone/Zinc Oxide [Inzo Zinc Oxide Barrier Cream] 1 applic TOPICAL BID 12/15 [History] Docusate [Colace] 100 mg PO BID 01/03/17 [History] Donepezil [Aricept] 5 mg PO HS 01/03/17 [History] Lisinopril [Zestril] 20 mg PO BID 01/03/17 [History] Loratadine [Claritin] 10 mg PO DAILY 01/03/17 [History] Ocusoft Lid Scrub Pad 1 applic BOTH EYES HS 01/03/17 [History] Sertraline HCl [Zoloft] 100 mg PO DAILY 01/03/17 [History] Sertraline [Zoloft] 50 mg PO DAILY 01/03/17 [History] Tamsulosin [Flomax] 0.4 mg PO HS 01/03/17 [History] amLODIPine [Norvasc] 5 mg PO DAILY 01/03/17 [History] Azithromycin [Zithromax] 500 mg PO Q24H #7 tab 01/06/17 [Rx] Ipratropium-Albuterol Nebulize [Duoneb 0.5 mg-3 mg/3 ml Soln] 3 ml INHALATION RT -QID neb 01/06/17 [Rx] Follow up Appointment(s)/Referral(s): Ro Baer MD [Primary Care Provider] - 1 Week (at [facility]) Discharge Disposition: TRANSFER TO SNF/ECF
[2017-01-06 14:58] VITALS: BP 150/81; TEMP 98.9
[2017-01-06 16:14] VITALS: PULSE 64
== END 2017-01-06 17:20 | DRG 190 ==
LOC: EEVIPCON 12:51 → EC 12:51 → 5MS5E 15:56
PROVIDERS: ADMIT Internal Medicine; ATTEND Internal Medicine
DX: J44.0 Chronic obstructive pulmonary disease with (acute) lower respiratory infection (principal); J18.9 Pneumonia, unspecified organism; N17.9 Acute kidney failure, unspecified; I11.0 Hypertensive heart disease with heart failure; E27.8 Other specified disorders of adrenal gland; D69.6 Thrombocytopenia, unspecified; F01.50 Vascular dementia, unspecified severity, without behavioral disturbance, psychotic disturbance, mood disturbance, and anxiety; E78.5 Hyperlipidemia, unspecified; F32.9 Major depressive disorder, single episode, unspecified; I71.4 Abdominal aortic aneurysm, without rupture; I73.9 Peripheral vascular disease, unspecified; J30.9 Allergic rhinitis, unspecified; K21.9 Gastro-esophageal reflux disease without esophagitis; N40.0 Benign prostatic hyperplasia without lower urinary tract symptoms; M19.90 Unspecified osteoarthritis, unspecified site; D64.9 Anemia, unspecified; Z79.51 Long term (current) use of inhaled steroids; Z79.899 Other long term (current) drug therapy; Z87.891 Personal history of nicotine dependence; Z82.49 Family history of ischemic heart disease and other diseases of the circulatory system; W19.XXXA Unspecified fall, initial encounter; Y92.9 Unspecified place or not applicable
CPT/HCPCS: 36415; 51701; 70450; 71020; 71250; 72125; 72170; 74230; 80053; 81001; 82550; 83605; 83735; 83880; 84100; 84484; 85025; 85610; 85730; 86850; 86900; 86901; 87040; 87086; 93005; 94640; 94760; 96365; 96375; 99285

== ENCOUNTER → 2018-01-19 | Outpatient (CLI) | payer MEDICARE, OTHER ==
--- NOTE | 2018-01-19 15:05 | CT ---
EXAMINATION TYPE: CT chest wo con DATE OF EXAM: 01/19/2018 COMPARISON: 01/03/2017 HISTORY: Right basilar airspace disease CT DLP: 353.5 mGycm, Automated exposure control for dose reduction was used. CONTRAST: Performed injected with 0 mL of Isovue 370. TECHNIQUE: Axial images were obtained at 5 mm thick sections. Reconstructed images are reviewed on [employer] computer in the coronal plane. FINDINGS: Portion of the thyroid visualized is normal. Emphysematous changes are present. A small area of pneumonitis within the right upper lobe. Series 4 image 9. Some infiltrate is along the major fissure. No enlarged mediastinal or hilar adenopathy is evident. The ascending aorta diameter at the level o f the main pulmonary artery is 4.5 cm. The main pulmonary artery diameter at the bifurcation is 3.8 cm. There is an aortic stent extending from the mid aortic arch to the distal descending thoracic aor ta. Aneurysmal dilatation to this level is not evident. Limited CT sections are obtained through the upper abdomen. Right adrenal gland is thickened at 1.3 c m. Thickening of the left adrenal gland is 1.3 cm. Transverse dimension of the aorta below the diaphr agm is 4.5 cm. IMPRESSIONS: 1. Aneurysmal dilatation of the thoracic aorta appears stable from the comparison of 01/03/2017.
== END | disposition home or self-care (01) ==
LOC: RADCTMAIN 08:16
PROVIDERS: ATTEND Family Medicine
DX: J44.9 Chronic obstructive pulmonary disease, unspecified (principal)
CPT/HCPCS: 71250

== ENCOUNTER → 2019-01-05 | Outpatient (CLI) | payer MEDICARE, OTHER ==
--- NOTE | 2019-01-05 12:51 | FL ---
EXAMINATION TYPE: FL barium swallow w video DATE OF EXAM: 01/05/2019 COMPARISON: NONE HISTORY: Pneumonitis. FINDINGS: Patient was evaluated in real-time fluoroscopy in the lateral projection while ingesting barium mixe d with liquids and solids. No aspiration. Vallecular residuals are noted. Laryngeal penetration note d on multiple swallows. Tongue motion, pill rolling in the right hand noted during the exam, consider Parkinson's disease. 2 minutes 17 seconds fluoroscopy time, no images obtained. See dictated report from speech pathology.
== END | disposition home or self-care (01) ==
LOC: RADFLMAIN 10:49
PROVIDERS: ATTEND Family Medicine
DX: J69.0 Pneumonitis due to inhalation of food and vomit (principal)
CPT/HCPCS: 74230

== ENCOUNTER → 2019-01-17 | Outpatient (CLI) | payer MEDICARE, OTHER ==
--- NOTE | 2019-01-17 12:17 | CT ---
EXAMINATION TYPE: CT chest w con DATE OF EXAM: 01/17/2019 COMPARISON: 01/19/2018 HISTORY: 73-year-old male abn CXR, neoplasm of lung TECHNIQUE: Contiguous axial scanning of the chest after the administration of 80 mL of Isovue 300. C oronal/sagittal reconstructions performed. CT DLP: 685mGycm. Automatic exposure control utilized for a dose reduction. FINDINGS: Heart upper limits of normal in size without pericardial effusion. Aortic root is ectatic at 3.7 cm. Ascending aorta mildly aneurysmal at 4.2 cm There is an endovascular aortic stent graft extending from just distal to the left subclavian artery takeoff down to the lower descending thoracic aorta. There is a small area where contrast undercuts b etween the stent graft and inferior aortic wall, refer to axial images 18 and 19 and sagittal image 7 0. This can be monitored on routine scans to exclude any progressive type IA endoleak. The stented portion of the descending thoracic aorta measures up to 3.6 cm. Distal descending thoracic aorta just beyond the stent graft measures 3.7 cm. Aorta at the thoracoabdominal junction measures 5.2 cm with prominent mural based plaque and thrombus , possible old thrombosed dissection cavity. No thoracic lymphadenopathy. Mild bilateral gynecomastia. Mild centrilobular emphysema with 20 areas of atelectasis or scarring in the mid and lower lungs. Prominent dependent atelectasis is noted. Large caliber to the main right and left pulmonary arteries measuring 2.8 and 2.2 cm, respectively, c ompatible with underlying pulmonary arterial hypertension. Small 4 mm right upper lobe pulmonary nodule, axial image 20 is unchanged suggesting a benign etiolog y. In the visualized upper abdomen, there is low-density thickening of the bilateral adrenal glands. 4 m m nonobstructive right renal calculus. Bones: Endplate spondylosis lower thoracic spine. Advanced degenerative changes left shoulder. IMPRESSION: 1. Prior thoracic aortic endovascular stent graft of the descending thoracic aorta. There is slight u ndercutting of contrast between the stent graft and inferior wall of the aorta (for example, sagittal image 70). Routine surveillance imaging can exclude any enlarging type I A endoleak. 2. Overall stable aneurysmal aorta: mildly aneurysmal ascending aorta (4.2 cm), aneurysmal stented po rtion of the descending thoracic aorta (3.6 cm), aneurysmal distal descending thoracic aorta below th e stent graft (3.7 cm), and aneurysmal aorta at the thoracoabdominal junction (5.2 cm). 3. COPD with mild emphysema and strandy areas of atelectasis or scarring. Pulmonary arterial hyperten connor.
== END | disposition home or self-care (01) ==
LOC: RADCTMAIN 09:39
PROVIDERS: ATTEND Family Medicine
DX: I71.2 Thoracic aortic aneurysm, without rupture (principal); I71.6 Thoracoabdominal aortic aneurysm, without rupture; J43.2 Centrilobular emphysema; I27.21 Secondary pulmonary arterial hypertension; C34.90 Malignant neoplasm of unspecified part of unspecified bronchus or lung; Z95.828 Presence of other vascular implants and grafts
CPT/HCPCS: 82565; 84520; 71260; 36415; Q9967

== ENCOUNTER → 2019-03-28 | Outpatient (CLI) | payer MEDICARE, OTHER ==
--- NOTE | 2019-03-28 12:11 | CT ---
EXAMINATION TYPE: CT chest w con DATE OF EXAM: 03/28/2019 COMPARISON: 01/17/2019 HISTORY: 43-year-old male endoleak, Aortic graft leakage TECHNIQUE: Contiguous axial scanning of the chest after the administration of 80 mL of Isovue 300. C oronal/sagittal reconstructions performed. CT DLP: 575.9mGycm. Automatic exposure control utilized for a dose reduction. FINDINGS: The heart is mildly enlarged with trace pericardial fluid. Aortic root is remeasured at approximately 4.4 cm, grossly stable when the prior exam is remeasured a t a different level. Limitation in measurement on the prior exam due to motion artifact. Ascending aorta measures 4.5 cm. Endovascular stent graft of the descending thoracic aorta extending from just after the left subclavi an artery origin. There is similar cupping of contrast around the proximal landing zone as compared t o 01/17/2019. Reference axial image 20 and 21 and sagittal image 72 for example. Distal descending thoracic aorta measures 5.4 cm, relatively unchanged. Large caliber to the main right and the pulmonary arteries measuring up to 3.0 cm suggesting underlyi ng pulmonary artery hypertension. There is some persistent mural-based low density material along the right descending pulmonary artery. Unclear if this represents motion artifact. Appearance is similar to the prior exam which was also motion limited. No thoracic lymphadenopathy. Motion artifacts limit assessment for small pulmonary nodules. Moderate centrilobular emphysema in the upper lungs. Scattered dependent areas of atelectasis. No con solidation or pleural effusion. Low-density thickening of the bilateral adrenal glands. Partially visualized low-density lesion measu ring 3.0 cm medial left kidney previously not included in the [id number], possible cyst. This can be confirmed with ultrasound. Bones: Accentuated midthoracic kyphosis. Mild degenerative disc disease throughout. IMPRESSION: 1. Redemonstrated endovascular stent graft of the descending aorta. Stable appearance to the proximal landing zone with some cupping of contrast just around the proximal portion of the stent. This may b e chronic postoperative appearance. Ongoing surveillance imaging recommended to exclude enlarging typ e I A endoleak. 2. Relatively stable aneurysmal thoracic aorta (ascending measuring up to 4.5 cm and lower descending measuring up to 5.4 cm). 3. COPD with mild emphysema and pulmonary arterial hypertension. 4. Motion limited exam. Unable to exclude some chronic mural based thrombus along the right descendin g pulmonary artery. The prior exam was also motion limited but the appearance is similar compared to that time. 5. Partially visualized 3 cm lesion left kidney, possible cyst. This can be confirmed with renal ultr asound.
== END | disposition home or self-care (01) ==
LOC: RADCTMAIN 08:33
PROVIDERS: ATTEND Family Medicine
DX: J43.9 Emphysema, unspecified (principal); I27.21 Secondary pulmonary arterial hypertension; Z95.828 Presence of other vascular implants and grafts; T82.3 Mechanical complication of other vascular grafts
CPT/HCPCS: 82565; 84520; 71260; 36415; Q9967

== ENCOUNTER → 2019-08-16 | Outpatient (CLI) | payer MEDICARE, OTHER ==
--- NOTE | 2019-08-16 12:43 | CT ---
EXAMINATION TYPE: CT chest wo con DATE OF EXAM: 08/16/2019 COMPARISON: 03/28/2020 HISTORY: Persistent cough. CT DLP: 407.9 mGycm. Automated Exposure Control for Dose Reduction was Utilized. TECHNIQUE: CT scan of the thorax is performed without IV contrast. FINDINGS: LUNGS: There is a linear prominence involving the lung bases suggestive of interlobular septal thicke obi degree of underlying chronic interstitial lung disease. 9 mm subpleural nodule superior segment right lower lobe on image 19. Underlying COPD suspected. MEDIASTINUM: Lack of IV contrast is noted to limit evaluation for mediastinal and especially hilar ad enopathy. There are no definitive greater than 1 cm hilar or mediastinal lymph nodes. Heart is enlarg ed and there is a small pericardial effusion. Aortic stents noted. Ascending aorta measures 4.7 cm co mpatible with mild aneurysmal dilation. Within the upper abdomen there is a area of calcification xuan trally within the aorta which was also seen on the prior exam appears be related to eccentric thrombu s and is stable in location. OTHER: 2 mm right renal calculus. No hydronephrosis. Prominence to the posterior margin of the left kidney incidentally noted which is compatible with a. Hypertrophic and degenerative change of the spi ne. IMPRESSION: 1. Findings suggest COPD with chronic interstitial lung disease. No consolidative pneumonia. There is a 9 mm subpleural superior segment right lower lobe pulmonary nodule. This was not seen with certain ty on the prior exam. Recommend 3 month follow-up CT chest. 2. Cardiomegaly with small pericardial effusion. 3. Thoracic aortic aneurysm with stent placement as discussed above
== END | disposition home or self-care (01) ==
LOC: RADCTMAIN 11:57
PROVIDERS: ATTEND Family Medicine
DX: I51.7 Cardiomegaly (principal); I31.3 Pericardial effusion (noninflammatory); I71.2 Thoracic aortic aneurysm, without rupture; R91.1 Solitary pulmonary nodule; Z95.828 Presence of other vascular implants and grafts
CPT/HCPCS: 71250

== ENCOUNTER 2019-12-07 08:25 | Inpatient (IN) | payer MEDICARE, OTHER ==
[2019-12-07] MEDS ORDERED: SODIUM CHLORIDE 0.9% 1,000 ML IV ONE (09:03)
--- NOTE | 2019-12-07 09:07 | ED ---
General Adult HPI - General Chief complaint: Shortness of Breath Stated complaint: SOB Time Seen by Provider: 12/07/19 08:51 Source: RN/MD, EMS, RN notes reviewed, old records reviewed Limitations: no limitations - History of Present Illness Initial comments: Is a 74-year-old male sent from [facility] in the leg with chief complaint of shortness of breath and a positive Covid test yesterday. Patient has a history of heart failure COPD, dementia hypertension vascular disorder. Patient has a stent graft of his aortic aneurysm. Patient has had worsening oxygen saturation overnight, reportedly the low 90s. Patient does complain of congestion and productive cough. He denies any abdominal pain or diarrhea. Patient reports no pain at this time. - Related Data Home Medications Medication Instructions Recorded Confirmed Budesonide/Formoterol Fumarate 2 puff INHALATION RT-BID@0900,1700 01/03/17 12/07/19 [Symbicort 160-4.5 Mcg Inhaler] Docusate [Colace] 100 mg PO DAILY@0900 01/03/17 12/07/19 Ocusoft Lid Scrub Pad 1 applic BOTH EYES HS@209901/03/17 12/07/19 Tamsulosin [Flomax] 0.4 mg PO HS@209901/03/17 12/07/19 Albuterol Sulfate [Proventil Hfa] 1 puff INHALATION RT-QID PRN 12/07/19 12/07/19 Cholecalciferol [Vitamin D3 (25 2,000 unit PO DAILY 12/07/19 12/07/19 Mcg = 1000 Iu)] Ensure Clear 1 can PO TID-W/MEALS 12/07/19 12/07/19 Fluticasone Nasal [place] [Flonase 1 spray EA NOSTRIL BID 12/07/19 12/07/19 Nasal [place]] Fluticasone/Vilanterol [Breo 1 puff INHALATION RT-DAILY@89912/07/19 12/07/19 Ellipta 200-25 Mcg INH] Furosemide [Lasix] 20 mg PO DAILY@59912/07/19 12/07/19 Hydroxychloroquine Sulfate 200 mg PO DIRECTED 12/07/19 12/07/19 [Plaquenil] Pantoprazole [Protonix] 40 mg PO DAILY@59912/07/19 12/07/19 Sertraline HCl [Zoloft] 25 mg PO DAILY@0900 12/07/19 12/07/19 Zinc 50 mg PO HS@2100 12/07/19 12/07/19 Allergies Allergy/AdvReac Type Severity Reaction Status Date / Time No Known Allergies Allergy Verified 12/07/19 08:36 Review of Systems ROS Statement: Those systems with pertinent positive or pertinent negative responses have been documented in the HPI. ROS Other: All systems not noted in ROS Statement are negative. Past Medical History Past Medical History: Heart Failure, COPD, Dementia, GERD/Reflux, Hypertension, Osteoarthritis (OA), Prostate Disorder, Vascular Disorder History of Any Multi-Drug Resistant Organisms: None Reported Past Surgical History: Unable to Obtain Additional Past Surgical History / Comment(s): Endovascular stent graft for aortic aneurysm. Past Psychological History: Depression Smoking Status: Unknown if ever smoked Past Alcohol Use History: None Reported Past Drug Use History: None Reported - Past Family History Mother Family Medical History: Myocardial Infarction (DC) (Mother in her 80s from myocardial infarction.) Father Family Medical History: Dementia (Father had dementia in his late 80s.) Sister(s) Family Medical History: Cancer (Patient had 3 sister 2 of them from some s ort of cancer.) Son(s) Family Medical History: No Reported History (Patient has 2 sons no major medical problems) General Exam - General Exam Comments Initial Comments: 74-year-old male. Alert, shaking his head yes or no further answering questions. He appears somewhat weak. Limitations: no limitations General appearance: alert, in no apparent distress Head exam: Present: atraumatic, normocephalic, normal inspection Eye exam: Present: normal appearance, PERRL, EOMI. Absent: scleral icterus, co njunctival injection, periorbital swelling ENT exam: Present: normal exam, mucous membranes moist Neck exam: Present: normal inspection. Absent: tenderness, meningismus, lymphadenopathy Respiratory exam: Present: decreased breath sounds. Absent: normal lung sounds bilaterally, respiratory distress, wheezes, rales, rhonchi, stridor Cardiovascular Exam: Present: regular rate, normal rhythm, normal heart sounds. Absent: systolic murmur, diastolic murmur, rubs, gallop, clicks GI/Abdominal exam: Present: soft, normal bowel sounds. Absent: distended, tenderness, guarding, rebound, rigid Extremities exam: Present: normal inspection, full ROM, normal capillary refill. Absent: tenderness, pedal edema, joint swelling, calf tenderness Back exam: Present: normal inspection Neurological exam: Present: alert, oriented X3, CN II-XII intact Psychiatric exam: Present: normal affect, normal mood Course Vital Signs 12/07/19 12/07/19 12/07/19 08:36 08:40 10:07 Temperature 98.2 F Pulse Rate 80 81 Respiratory 20 20 22 Rate Blood Pressure 135/97 142/97 O2 Sat by Pulse 100 99 Oximetry 12/07/19 11:25 Temperature Pulse Rate 81 Respiratory 20 Rate Blood Pressure 150/82 O2 Sat by Pulse 100 Oximetry Medical Decision Making - Medical Decision Making This is an 74-year-old male with multiple comorbidities presents emergency de partment for worsening shortness of breath wearing oxygen administration with recent diagnosis of coated yesterday. Patient reportedly has had progressive symptoms over the past few days. At this time Patient is requiring 2 L of oxygen but he is now satting at 9200% on room air. He appears in no acute distress. Did have an elevated d-dimer of 6. CT chest changes completed and negative for PE. Patient will be made at this time started on Codimal medication plaque would help. Patient will be admitted at this time with consults to Dr. Bermudez and Dr. Lovett per Dr. Baer. - Lab Data Result diagrams: 12/07/19 08:50 12/07/19 08:50 Lab Results 12/07/19 12/07/19 12/07/19 Range/Units 08:50 08:50 08:50 WBC 6.1 (3.8-10.6) k/uL RBC 4.14 L (4.30-5.90) m/uL Hgb 11.1 L (13.0-17.5) gm/dL Hct 36.5 L (39.0-53.0) % MCV 88.3 (80.0-100.0) fL MCH 26.8 (25.0-35.0) pg MCHC 30.3 L (31.0-37.0) g/dL RDW 15.0 (11.5-15.5) % Plt Count 222 (150-450) k/uL Neutrophils % 64 % Lymphocytes % 23 % Monocytes % 6 % Eosinophils % 3 % Basophils % 1 % Neutrophils # 3.9 (1.3-7.7) k/uL Lymphocytes # 1.4 (1.0-4.8) k/uL Monocytes # 0.4 (0-1.0) k/uL Eosinophils # 0.2 (0-0.7) k/uL Basophils # 0.1 (0-0.2) k/uL Hypochromasia Moderate PT 9.9 (9.0-12.0) sec INR 0.9 (<1.2) APTT 24.6 (22.0-30.0) sec D-Dimer 6.15 H (<0.60) mg/L FEU Sodium 140 (137-145) mmol/L Potassium 3.7 (3.5-5.1) mmol/L Chloride 103 (98-107) mmol/L Carbon Dioxide 35 H (22-30) mmol/L Anion Gap 2 mmol/L BUN 16 (9-20) mg/dL Creatinine 1.25 (0.66-1.25) mg/dL Est GFR (CKD-EPI)AfAm 65 (>60 ml/min/1.73 sqM) Est GFR (CKD-EPI)NonAf 56 (>60 ml/min/1.73 sqM) Glucose 93 (74-99) mg/dL Plasma Lactic Acid Michael (0.7-2.0) mmol/L Calcium 8.7 (8.4-10.2) mg/dL Magnesium 2.0 (1.6-2.3) mg/dL Total Bilirubin 0.3 (0.2-1.3) mg/dL AST 19 (17-59) U/L ALT 12 (4-49) U/L Alkaline Phosphatase 82 (38-126) U/L Lactate Dehydrogenase 343 (313-618) U/L C-Reactive Protein 30.8 H (<10.0) mg/L NT-Pro-B Natriuret Pep pg/mL Total Protein 6.4 (6.3-8.2) g/dL Albumin 3.3 L (3.5-5.0) g/dL Coronavirus (PCR) (Not Detectd) 12/07/19 12/07/19 12/07/19 Range/Units 08:50 08:50 Unknown WBC (3.8-10.6) k/uL RBC (4.30-5.90) m/uL Hgb (13.0-17.5) gm/dL Hct (39.0-53.0) % MCV (80.0-100.0) fL MCH (25.0-35.0) pg MCHC (31.0-37.0) g/dL RDW (11.5-15.5) % Plt Count (150-450) k/uL Neutrophils % % Lymphocytes % % Monocytes % % Eosinophils % % Basophils % % Neutrophils # (1.3-7.7) k/uL Lymphocytes # (1.0-4.8) k/uL Monocytes # (0-1.0) k/uL Eosinophils # (0-0.7) k/uL Basophils # (0-0.2) k/uL Hypochromasia PT (9.0-12.0) sec INR (<1.2) APTT (22.0-30.0) sec D-Dimer (<0.60) mg/L FEU Sodium (137-145) mmol/L Potassium (3.5-5.1) mmol/L Chloride (98-107) mmol/L Carbon Dioxide (22-30) mmol/L Anion Gap mmol/L BUN (9-20) mg/dL Creatinine (0.66-1.25) mg/dL Est GFR (CKD-EPI)AfAm (>60 ml/min/1.73 sqM) Est GFR (CKD-EPI)NonAf (>60 ml/min/1.73 sqM) Glucose (74-99) mg/dL Plasma Lactic Acid Michael 0.6 L (0.7-2.0) mmol/L Calcium (8.4-10.2) mg/dL Magnesium (1.6-2.3) mg/dL Total Bilirubin (0.2-1.3) mg/dL AST (17-59) U/L ALT (4-49) U/L Alkaline Phosphatase (38-126) U/L Lactate Dehydrogenase (313-618) U/L C-Reactive Protein (<10.0) mg/L NT-Pro-B Natriuret Pep 281 pg/mL Total Protein (6.3-8.2) g/dL Albumin (3.5-5.0) g/dL Coronavirus (PCR) Not Detected (Not Detectd) 12/07/19 09:08 EKG performed at 833 shows normal sinus rhythm, low voltage QRS. Borderline EKG. Ventricular rate of 82 bpm. Pulse 160 ms. QS duration is 386/450 ms. - Radiology Data Radiology results: report reviewed Chest x-ray shows chronic changes and cardiac megaly with noose without new suspicious acute pulmonary process. No evidence of coronary embolus although examination somewhat limited by respiratory motion. Soft tissue density in the right lower lobe pulmonary arteries and rhonchi endoscopic recommended. Moderate central lobe emphysema change. Aneurysmal dilation of aortic root stairs ascending thoracic aorta and proximal aortic arch. Stable penetrating ulcer of the descending thoracic aorta descending thoracic aortic aneurysm. Enlargement of the main pulmonary artery suggesting pulmonary arterial hypertension. Disposition Clinical Impression: COVID-19, Elevated d-dimer Disposition: ADMITTED IP TO THIS HOSP Condition: Stable Is patient prescribed a controlled substance at d/c from ED?: No Referrals: Ro Baer MD [Primary Care Provider] - 1-2 days Time of Disposition: 12:40
[2019-12-07 09:23] LABS: Basophils # (A) 0.1 k/uL (0-0.2); Basophils % (A) 1 %; Eosinophils # (A) 0.2 k/uL (0-0.7); Eosinophils % (A) 3 %; HCT 36.5 % (39.0-53.0); HGB 11.1 gm/dL (13.0-17.5); Hypochromasia Moderate; Lymphocytes # (A) 1.4 k/uL (1.0-4.8); Lymphocytes % (A) 23 %; MCH 26.8 pg (25.0-35.0); MCHC 30.3 g/dL (31.0-37.0); MCV 88.3 fL (80.0-100.0); Mean Platelet Volume 6.9; Monocytes # (A) 0.4 k/uL (0-1.0); Monocytes % (A) 6 %; Neutrophils # (A) 3.9 k/uL (1.3-7.7); Neutrophils % (A) 64 %; Platelet Count 222 k/uL (150-450); RBC 4.14 m/uL (4.30-5.90); WBC 6.1 k/uL (3.8-10.6)
[2019-12-07] MEDS: SODIUM CHLORIDE 0.9% 1,000 ML IV SCH ×2 (09:31→19:45)
[2019-12-07 09:44] LABS: Albumin 3.3 g/dL (3.5-5.0); C Reactive Protein 30.8 mg/L (<10.0); Calcium 8.7 mg/dL (8.4-10.2); Potassium 3.7 mmol/L (3.5-5.1); Total Bilirubin 0.3 mg/dL (0.2-1.3); Total Protein 6.4 g/dL (6.3-8.2)
[2019-12-07 09:46] LABS: INR 0.9 (<1.2); Partial Thromboplastin Time 24.6 sec (22.0-30.0); Prothrombin Time 9.9 sec (9.0-12.0)
--- NOTE | 2019-12-07 09:50 | XR ---
EXAMINATION TYPE: XR chest 1V portable DATE OF EXAM: 12/07/2019 COMPARISON: Chest CT August 16, 2019. 2 view chest x-ray January 06, 2017. HISTORY: Persistent cough. TECHNIQUE: Single AP frontal view of the chest is obtained. FINDINGS: There is chronic parenchymal change in the bases without suspicious new focal air space op acity, pleural effusion, or pneumothorax seen. The cardiac silhouette size is remains enlarged with metallic stent graft in the descending thoracic aorta. The osseous structures show degenerative oralia nge both shoulders at the glenohumeral joints. IMPRESSION: Chronic changes and cardiomegaly without new suspicious acute pulmonary process.
[2019-12-07 09:51] LABS: D-Dimer 6.15 mg/L FEU (<0.60)
--- NOTE | 2019-12-07 11:42 | CT ---
EXAMINATION TYPE: CT chest angio for PE DATE OF EXAM: 12/07/2019 COMPARISON: 12/07/2019 chest x-ray and CT dated 03/20/2019. HISTORY: Positive d-dimer CT DLP: 462.6 mGycm. Automated Exposure Control for Dose Reduction was Utilized. CONTRAST: CTA scan of the thorax is performed without and with IV Contrast, patient injected with 100 ml mL of Isovue 370, pulmonary embolism protocol. MIP Images are created on CT scanner and reviewed. FINDINGS: Extensive respiratory motion limits examination. LUNGS: Moderate emphysematous changes of the lungs. The lungs are grossly clear, there is no concerni ng parenchymal mass or nodule identified. There is abnormal soft tissue thickening surrounding the ri ght segmental and subsegmental bronchi to the right lower lobe and also surrounding the right lower l obe segmental pulmonary arteries. This measures up to 1.2 cm in greatest thickness. There is no pleu ral effusion or pneumothorax seen. The tracheobronchial tree is patent. Scattered areas of subsegmen ainsley atelectasis seen. Slitlike narrowing of the trachea can be seen in COPD. MEDIASTINUM: There is satisfactory enhancement of the pulmonary artery and its branches, there is no CT evidence for pulmonary embolism. Small filling defect of the inferior aspect of the distal right main pulmonary artery does not persist on coronal or sagittal images and neck appears extraluminal. T here are no greater than 1 cm hilar or mediastinal lymph nodes. Main pulmonary artery is enlarged nirav suring 4.3 cm suggesting underlying pulmonary arterial hypertension. Thoracic aortic stent graft begi ns in the aortic arch and extends into the distal thoracic aorta. The aortic arch is mildly aneurysmal at the origin of the stent measuring 4.0 cm. There is also aneur ysmal dilatation of the ascending thoracic aorta measuring 4.4 cm and aortic root measuring 4.4 cm. B olus timing limits evaluation for coronary artery atherosclerosis. No discrete atherosclerosis is see n. The heart is enlarged with small pericardial effusion. Descending thoracic aorta measures up to 5. 2 cm when measured similar to the prior of 03/20/2019 with no progression in size. Extensive crescenti c mural thrombus is seen with small penetrating atheromatous ulcer is also unchanged on image 115. OTHER: Moderate bilateral retroareolar symmetric gynecomastia seen as seen on the prior. Moderate mul tilevel degenerative change of the spine. Mid thoracic kyphosis is again accentuated. IMPRESSION: 1. No evidence of pulmonary embolus although the examination is somewhat limited by extensive respira tory motion. 2. Abnormal soft tissue density along the right lower lobe pulmonary arteries and bronchi. Endoscopy is recommended. 3. Moderate background centrilobular emphysematous change. 4. Aneurysmal dilatation of the aortic root, ascending thoracic aorta, and proximal aortic arch just proximal to the aortic stent graft. 5. Stable penetrating atheromatous ulcer of the descending thoracic aorta and descending thoracic aor tic aneurysm. 6. Enlargement of the main pulmonary artery suggesting underlying pulmonary arterial hypertension.
[2019-12-07] MEDS ORDERED: ACETAMINOPHEN TAB 325 MG TAB PO PRN ×2 (12:40→12:41)
[2019-12-07] MEDS ORDERED: NALOXONE 0.4 MG/ML 1 ML VIAL IV PRN (12:41)
[2019-12-07] MEDS ORDERED: MORPHINE SULFATE 4 MG/ML SYRINGE IV PRN (12:41)
[2019-12-07] MEDS ORDERED: Acetaminophen-Codeine 300-30mg TAB PO PRN (12:41)
[2019-12-07] MEDS ORDERED: ONDANSETRON 4 MG/2 ML VIAL IVP PRN (12:41)
--- NOTE | 2019-12-07 14:30 | P.HPIM ---
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 Baer with a previous medical history significant for hypertension and hypertensive cardiovascular disease, hyperlipidemia, history of aortic aneurysm status post endovascular stent graft, left adrenal mass, vascular dementia, COPD, BPH, CHF, admitted through the emergency room secondary to tachypnea, and hypoxemia. He was being monitored at [facility] on the [facility],, and was exposed by his bed made to have recently diagnosed to COVID, patient is compromised with lung, we have tested him for Covid 3 days ago, and was noted to be positive. Patient to have cough, no fever, no chills patient has advanced dementia, can shake his head with minimal vocalization, they have ordered biomarkers for Covid, and the Covid by PCR was positive. He has worsening hypoxemia, he used to be on 1 L satting at 95-98%, and this morning, his saturation declined to 91% on 2 L nasal cannula, and was more tachypnea, no fever no chills. Patient does not have any chest pain and dyspepsia cannot vocalize on pleurisy, patient denies any lower extremity edema no nausea no vomiting or diarrhea. We have transferred him via ambulance, to be treated at [facility], for worsening hypoxemia, and tachypnea. Covid positive by RT PCR, sent to state lab, Covid pneumonia suspected. In the emergency room d-dimer was elevated at 6.15, negative for PE, has WBC of 6.1 hemoglobin 11.1, percent lymphocytes was 1.4, with hypochromasia, CO2 35, creatinine 1.25 lactic acid was 0.6, [employer] proBNP 281. Routine test is pending, LDH normal 343, CRP elevated, rapid screening Covid was negative, no urinalysis was done chest x-ray shows cardiomegaly without any acute arm pulmonary process, chronic changes CTA chest, ruled out pulmonary emboli, there is pulmonary hypertension, abnormal soft tissue density at the right lower lobe pulmonary arteries and bronchi, endoscopy is recommended, centrilobular COPD changes, aneurysm of the ascending aorta, proximal arm just proximal to the aortic stent graft, stable penetrating atheromatous ulcer of the ascending thoracic aorta and descending thoracic aortic aneurysm, there is extensive crescentic mural thrombus in this ulcer that is unchanged. Small pericardial effusion Review of Systems Constitutional: Reports as per HPI, Reports weight loss, Denies anorexia, Denies chills, Denies chronic headaches, Denies chronic pain, Denies daytime sleepiness, Denies fatigue, Denies fever, Denies lethargy, Denies malaise, Denies night sweats, Denies poor appetite, Denies sweats, Denies weakness, Denies weight gain Ears, nose, mouth and throat: Reports as per HPI Cardiovascular: Reports as per HPI, Reports decreased exercise tolerance, Reports shortness of breath Respiratory: Reports cough Gastrointestinal: Reports as per HPI Genitourinary: Reports as per HPI, Reports urinary retention Musculoskeletal: Reports as per HPI, Reports gait dysfunction, Reports limitation of motion, Reports muscle weakness Integumentary: Reports as per HPI Neurological: Reports as per HPI, Denies aphasia, Denies ataxia, Denies balance difficulties, Denies burning pain, Denies change in mentation, Denies change in smell/taste, Denies change in speech, Denies confusion, Denies convulsions, Denies double vision, Denies gait dysfunction, Denies head injury, Denies headaches, Denies hearing difficulties, Denies lack of coordination, Denies loss of vision, Denies memory loss, Denies migraines, Denies motor disturbance, Denies numbness, Denies paralysis, Denies paresthesias, Denies seizures, Denies sensory deficit, Denies spasticity, Denies syncope, Denies tic, Denies tingling, Denies transient paralysis, Denies tremors, Denies vertigo, Denies weakness, Denies visual changes Psychiatric: Reports as per HPI, Reports confusion, Reports depression, Reports sleep disturbances Endocrine: Reports as per HPI, Reports weight change Hematologic/Lymphatic: Reports as per HPI Allergic/Immunologic: Reports as per HPI, Reports allergic rhinitis, Reports persistent infections, Reports wheezing Past Medical History Past Medical History: Heart Failure, COPD, Dementia, GERD/Reflux, Hypertension, Osteoarthritis (OA), Prostate Disorder, Vascular Disorder History of Any Multi-Drug Resistant Organisms: None Reported Past Surgical History: Unable to Obtain Additional Past Surgical History / Comment(s): Endovascular stent graft for aortic aneurysm. Past Psychological History: Depression Smoking Status: Unknown if ever smoked Past Alcohol Use History: None Reported Past Drug Use History: None Reported - Past Family History Mother Family Medical History: Myocardial Infarction ([place]) (Mother in her 80s from myocardial infarction.) Father Family Medical History: Dementia (Father had dementia in his late 80s.) Sister(s) Family Medical History: Cancer (Patient had 3 sister 2 of them from some sort of cancer.) Son(s) Family Medical History: No Reported History (Patient has 2 sons no major medical problems) Medications and Allergies Home Medications Medication Instructions Recorded Confirmed Type Budesonide/Formoterol Fumarate 2 puff INHALATION RT-BID@0900,1700 01/03/17 12/07/19 History [Symbicort 160-4.5 Mcg Inhaler] Docusate [Colace] 100 mg PO DAILY@89901/03/17 12/07/19 History Ocusoft Lid Scrub Pad 1 applic BOTH EYES HS@209901/03/17 12/07/19 History Tamsulosin [Flomax] 0.4 mg PO HS@209901/03/17 12/07/19 History Albuterol Sulfate [Proventil Hfa] 1 puff INHALATION RT-QID PRN 12/07/19 12/07/19 History Cholecalciferol [Vitamin D3 (25 2,000 unit PO DAILY 12/07/19 12/07/19 History Mcg = 1000 Iu)] Ensure Clear 1 can PO TID-W/MEALS 12/07/19 12/07/19 History Fluticasone Nasal [place] [Flonase 1 spray EA NOSTRIL BID 12/07/19 12/07/19 History Nasal [place]] Fluticasone/Vilanterol [Breo 1 puff INHALATION RT-DAILY@89912/07/19 12/07/19 History Ellipta 200-25 Mcg INH] Furosemide [Lasix] 20 mg PO DAILY@59912/07/19 12/07/19 History Hydroxychloroquine Sulfate 200 mg PO DIRECTED 12/07/19 12/07/19 History [Plaquenil] Pantoprazole [Protonix] 40 mg PO DAILY@59912/07/19 12/07/19 History Sertraline HCl [Zoloft] 25 mg PO DAILY@89912/07/19 12/07/19 History Zinc 50 mg PO HS@209912/07/19 12/07/19 History Allergies Allergy/AdvReac Type Severity Reaction Status Date / Time No Known Allergies Allergy Verified 12/07/19 08:36 Physical Exam Vitals: Vital Signs Temp Pulse Resp BP Pulse Ox 12/07/19 11:25 81 20 150/82 100 12/07/19 10:07 81 22 142/97 99 12/07/19 08:40 20 12/07/19 08:36 98.2 F 80 20 135/97 100 Intake and Output 12/06/19 12/07/19 12/07/19 22:59 06:59 14:59 Other: Weight 92.533 kg - Constitutional General appearance: cooperative, no acute distress - EENT Eyes: EOMI, PERRLA, dentition normal, normal appearance ENT: NA/AT, normal oropharynx - Neck Neck: normal ROM - Respiratory Respiratory: bilateral: CTA, diminished, negative: dullness, rales, rhonchi - Cardiovascular Rhythm: regular Heart sounds: normal: S1, S2 Abnormal Heart Sounds: no systolic murmur, no diastolic murmur, no rub, no S3 Gallop, no S4 Gallop, no click, no other - Integumentary Integumentary: normal - Neurologic Neurologic: CNII-XII intact - Musculoskeletal Musculoskeletal: generalized weakness, strength equal bilaterally - Psychiatric Psychiatric: appropriate affect Results CBC & Chem 7: 12/07/19 08:50 12/07/19 08:50 Labs: Abnormal Lab Results - Last 24 Hours (Table) 12/07/19 12/07/19 12/07/19 Range/Units 08:50 08:50 08:50 RBC 4.14 L (4.30-5.90) m/uL Hgb 11.1 L (13.0-17.5) gm/dL Hct 36.5 L (39.0-53.0) % MCHC 30.3 L (31.0-37.0) g/dL D-Dimer 6.15 H (<0.60) mg/L FEU Carbon Dioxide 35 H (22-30) mmol/L Plasma Lactic Acid Michael (0.7-2.0) mmol/L C-Reactive Protein 30.8 H (<10.0) mg/L Albumin 3.3 L (3.5-5.0) g/dL 12/07/19 Range/Units 08:50 RBC (4.30-5.90) m/uL Hgb (13.0-17.5) gm/dL Hct (39.0-53.0) % MCHC (31.0-37.0) g/dL D-Dimer (<0.60) mg/L FEU Carbon Dioxide (22-30) mmol/L Plasma Lactic Acid Michael 0.6 L (0.7-2.0) mmol/L C-Reactive Protein (<10.0) mg/L Albumin (3.5-5.0) g/dL Laboratory Results WBC 6.1 k/uL (3.8-10.6) 12/07/19 08:50 RBC 4.14 m/uL (4.30-5.90) L 12/07/19 08:50 Hgb 11.1 gm/dL (13.0-17.5) L 12/07/19 08:50 Hct 36.5 % (39.0-53.0) L 12/07/19 08:50 MCV 88.3 fL (80.0-100.0) 12/07/19 08:50 MCH 26.8 pg (25.0-35.0) 12/07/19 08:50 MCHC 30.3 g/dL (31.0-37.0) L 12/07/19 08:50 RDW 15.0 % (11.5-15.5) 12/07/19 08:50 Plt Count 222 k/uL (150-450) 12/07/19 08:50 Neutrophils % 64 % 12/07/19 08:50 Lymphocytes % 23 % 12/07/19 08:50 Monocytes % 6 % 12/07/19 08:50 Eosinophils % 3 % 12/07/19 08:50 Basophils % 1 % 12/07/19 08:50 Neutrophils # 3.9 k/uL (1.3-7.7) 12/07/19 08:50 Lymphocytes # 1.4 k/uL (1.0-4.8) 12/07/19 08:50 Monocytes # 0.4 k/uL (0-1.0) 12/07/19 08:50 Eosinophils # 0.2 k/uL (0-0.7) 12/07/19 08:50 Basophils # 0.1 k/uL (0-0.2) 12/07/19 08:50 Hypochromasia Moderate 12/07/19 08:50 PT 9.9 sec (9.0-12.0) 12/07/19 08:50 INR 0.9 (<1.2) 12/07/19 08:50 APTT 24.6 sec (22.0-30.0) 12/07/19 08:50 D-Dimer 6.15 mg/L FEU (<0.60) H 12/07/19 08:50 Sodium 140 mmol/L (137-145) 12/07/19 08:50 Potassium 3.7 mmol/L (3.5-5.1) 12/07/19 08:50 Chloride 103 mmol/L (98-107) 12/07/19 08:50 Carbon Dioxide 35 mmol/L (22-30) H 12/07/19 08:50 Anion Gap 2 mmol/L 12/07/19 08:50 BUN 16 mg/dL (9-20) 12/07/19 08:50 Creatinine 1.25 mg/dL (0.66-1.25) 12/07/19 08:50 Est GFR (CKD-EPI)AfAm 65 (>60 ml/min/1.73 sqM) 12/07/19 08:50 Est GFR (CKD-EPI)NonAf 56 (>60 ml/min/1.73 sqM) 12/07/19 08:50 Glucose 93 mg/dL (74-99) 12/07/19 08:50 Plasma Lactic Acid Michael 0.6 mmol/L (0.7-2.0) L 12/07/19 08:50 Calcium 8.7 mg/dL (8.4-10.2) 12/07/19 08:50 Magnesium 2.0 mg/dL (1.6-2.3) 12/07/19 08:50 Total Bilirubin 0.3 mg/dL (0.2-1.3) 12/07/19 08:50 AST 19 U/L (17-59) 12/07/19 08:50 ALT 12 U/L (4-49) 12/07/19 08:50 Alkaline Phosphatase 82 U/L (38-126) 12/07/19 08:50 Lactate Dehydrogenase 343 U/L (313-618) 12/07/19 08:50 C-Reactive Protein 30.8 mg/L (<10.0) H 12/07/19 08:50 NT-Pro-B Natriuret Pep 281 pg/mL 12/07/19 08:50 Total Protein 6.4 g/dL (6.3-8.2) 12/07/19 08:50 Albumin 3.3 g/dL (3.5-5.0) L 12/07/19 08:50 Coronavirus (PCR) Not Detected (Not Detectd) 12/07/19 Unknown Thrombosis Risk Factor Assmnt - DVT/VTE Prophylaxis DVT/VTE Prophylaxis: Pharmacologic Prophylaxis ordered - Choose All That Apply Any of the Below Risk Factors Present?: Yes Each Risk Factor Represents 2 Points: Patient confined to bed Each Risk Factor Represents 3 Points: Age 75 years or older Thrombosis Risk Factor Assessment Total Risk Factor Score: 5 Thrombosis Risk Factor Assessment Level: High Risk Assessment and Plan Plan: .1. COVID 19 infection, positive by PCR on 12/06/2019 with tachypnea, and worsening hypoxemia, O2 dependency,no evidence for groundglass infiltrates patient will be seen by infectious disease, as well as pulmonary Dr. Bermudez, patient was given Plaquenil 400 mg yesterday with subsequent dosing of 200 mg twice a day, monitor is to be followed while here, for covered biomarkers, along with deterioration of the pulmonary status. Monitor for cytokine storm, O2 supplementation, no current need for any antibiotic, patient might need actemra. or remdesivir, will have infectious dse decide. 2. Hypertension and hypertensive cardiovascular disease. Continue lisinopril 20 mg orally twice every day and amlodipine 5 mg orally once every day. 3. elev d-dimer Chronic hypoxemia, on 1 L nasal cannula f continuous or pulmonary hypertension, and COPD, 4. Abnormal CT chest , withSoft tissue density right lower lobe pulmonary arteries and bronchi, endoscopy is recommended 5. Pulmonary hypertension on O2, and Lasix, most likely secondary to COPD 6. Diabetes mellitus type 2, on diet, A1c to be done, 7 Abdominal aortic aneurysm status post endovascular vascular stent graft placement. Stable at this time. 8. Aneurysmal dilation of the aortic root, ascending thoracic aorta, proximal aortic arch just proximal to the aortic stent graft 9 Enlarged prostate. Continue Flomax 0.4 mg orally once every day. 10. Vascular dementia. Continue Aricept 5 mg orally bedtime. 11. COPD with mild exacerbation, hypoxemia, on maintenance albuterol, and Symbicort, no IV steroids at this time 12. ALLERGIC rhinitis. Continue Claritin 10 mg orally once every day. 13. DVT prophylaxis. Heparin 5000 units subcutaneously every 12 hours. 14 Repeat CBC the next 24 hours. And repeat lactic acid. 15 GI prophylaxis. Protonix 40 mg orally once every day. 15 Diet, mechanical, thin liquids no straws 16 Admitted to inpatient. Estimate a length of stay 2 midnights. 17 CODEstatus, has guardian full code per family option olivia [id number] DNR 18. debility, patient is bed bound, requires supervision 19, small pericardial efusion
--- NOTE | 2019-12-07 15:02 | P.CNPUL ---
History of Present Illness Consult date: 12/07/19 Reason for consult: dyspnea, cough, pneumonia Chief complaint: Shortness of breath cough, COVID positive in ECF History of present illness: This is a 74-year-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, patient was in [facility] until about 1-2 days ago when started having cough congestion shortness of breath, she was tested for COVID which came back positive due to ongoing breathing difficulty and low oxygen saturation transferred to [facility] for further evaluation, he has a significant history of COPD chronic congestive heart failure chronic diastolic heart failure, status post aortic endovascular graft, his chest x-ray significant for cardiomegaly along with COPD-like changes, computed tomography scan is negative for pulmonary embolism, he has been noted to have significant changes along with soft tissue density in the right segmental and subsegmental bronchi and right lower lobe , which is about 1.2 cm in thickness, small pericardial effusions seen, descending uterus 5.2 cm with crescentic mural thrombus with aortic stent graft Review of Systems All systems: negative Past Medical History Past Medical History: Heart Failure, COPD, Dementia, GERD/Reflux, Hypertension, Osteoarthritis (OA), Prostate Disorder, Vascular Disorder History of Any Multi-Drug Resistant Organisms: None Reported Past Surgical History: Unable to Obtain Additional Past Surgical History / Comment(s): Endovascular stent graft for aortic aneurysm. Past Psychological History: Depression Smoking Status: Unknown if ever smoked Past Alcohol Use History: None Reported Past Drug Use History: None Reported - Past Family History Mother Family Medical History: Myocardial Infarction ([place]) (Mother in her 80s from myocardial infarction.) Father Family Medical History: Dementia (Father had dementia in his late 80s.) Sister(s) Family Medical History: Cancer (Patient had 3 sister 2 of them from some sort of cancer.) Son(s) Family Medical History: No Reported History (Patient has 2 sons no major medical problems) Medications and Allergies Home Medications Medication Instructions Recorded Confirmed Type Budesonide/Formoterol Fumarate 2 puff INHALATION RT-BID@0900,1700 01/03/17 12/07/19 History [Symbicort 160-4.5 Mcg Inhaler] Docusate [Colace] 100 mg PO DAILY@0900 01/03/17 12/07/19 History Ocusoft Lid Scrub Pad 1 applic BOTH EYES HS@2100 06/05/17 05/08/20 History Tamsulosin [Flomax] 0.4 mg PO HS@209901/03/17 12/07/19 History Albuterol Sulfate [Proventil Hfa] 1 puff INHALATION RT-QID PRN 12/07/19 12/07/19 History Cholecalciferol [Vitamin D3 (25 2,000 unit PO DAILY 12/07/19 12/07/19 History Mcg = 1000 Iu)] Ensure Clear 1 can PO TID-W/MEALS 12/07/19 12/07/19 History Fluticasone Nasal [place] [Flonase 1 spray EA NOSTRIL BID 12/07/19 12/07/19 History Nasal [place]] Fluticasone/Vilanterol [Breo 1 puff INHALATION RT-DAILY@89912/07/19 12/07/19 History Ellipta 200-25 Mcg INH] Furosemide [Lasix] 20 mg PO DAILY@59912/07/19 12/07/19 History Hydroxychloroquine Sulfate 200 mg PO DIRECTED 12/07/19 12/07/19 History [Plaquenil] Pantoprazole [Protonix] 40 mg PO DAILY@59912/07/19 12/07/19 History Sertraline HCl [Zoloft] 25 mg PO DAILY@89912/07/19 12/07/19 History Zinc 50 mg PO HS@209912/07/19 12/07/19 History Allergies Allergy/AdvReac Type Severity Reaction Status Date / Time No Known Allergies Allergy Verified 12/07/19 08:36 Physical Exam Vitals: Vital Signs Temp Pulse Resp BP Pulse Ox 12/07/19 13:30 59 L 17 168/91 100 12/07/19 13:00 57 L 18 173/94 100 12/07/19 12:30 63 18 173/99 100 12/07/19 12:00 65 18 169/91 100 12/07/19 11:25 81 20 150/82 100 12/07/19 10:07 81 22 142/97 99 12/07/19 08:40 20 12/07/19 08:36 98.2 F 80 20 135/97 100 Intake and Output 12/06/19 12/07/19 12/07/19 22:59 06:59 14:59 Other: Weight 92.533 kg - Constitutional General appearance: cooperative, disheveled - EENT Eyes: EOMI Ears: bilateral: normal - Neck Neck: normal ROM - Respiratory Respiratory: bilateral: diminished - Cardiovascular Rhythm: regular Heart sounds: normal: S1, S2 - Gastrointestinal General gastrointestinal: normal bowel sounds, soft - Integumentary Integumentary: decreased turgor - Neurologic Neurologic: CNII-XII intact - Musculoskeletal Musculoskeletal: gait normal, generalized weakness - Psychiatric Psychiatric: A&O x's 3, appropriate affect, intact judgment & insight Results - Laboratory Findings CBC and BMP: 12/07/19 08:50 12/07/19 08:50 PT/INR, D-dimer PT 9.9 sec (9.0-12.0) 12/07/19 08:50 INR 0.9 (<1.2) 12/07/19 08:50 D-Dimer 6.15 mg/L FEU (<0.60) H 12/07/19 08:50 Abnormal lab findings: Abnormal Labs 12/07/19 12/07/19 12/07/19 08:50 08:50 08:50 RBC 4.14 L Hgb 11.1 L Hct 36.5 L MCHC 30.3 L D-Dimer 6.15 H Carbon Dioxide 35 H Plasma Lactic Acid Michael C-Reactive Protein 30.8 H Albumin 3.3 L 12/07/19 08:50 RBC Hgb Hct MCHC D-Dimer Carbon Dioxide Plasma Lactic Acid Michael 0.6 L C-Reactive Protein Albumin - Diagnostic Findings Chest x-ray: report reviewed, image reviewed CT scan - chest: report reviewed, image reviewed (Finding as noted above) Assessment and Plan Assessment: Covid19 pneumonia, patient has been on therapy with Plaquinil from ECF Elevated d-dimer likely related to above Acute hypoxic respiratory failure is multifactorial processes above as well as COPD Soft tissue density in the right lower lobe branches, will look into virtual endoscopy Aneurysmal dilatation of the ascending thoracic aorta Hypertension hypertensive cardiovascular disease Plan: Continue supportive care Supplemental oxygen Continue home medications Will do virtual bronchoscopy now true bronchoscopy subsequently as outpatient Consider changing heparin to Lovenox Monitor inflammatory parameters for covid virus infection Time with Patient: Greater than 30
[2019-12-07 16:21] LABS: Ferritin 21.8 ng/mL (22.0-322.0)
[2019-12-07] MEDS: ENOXAPARIN 30 MG/0.3 ML SYRINGE SQ SCH (16:25)
[2019-12-07] MEDS: ALBUTEROL HFA INHALER INHALATION PRN ×2 (16:26→19:47)
[2019-12-07] MEDS ORDERED: NON FORMULARY DRUG (Ensure Clear 1 CAN) PO SCH (17:30)
[2019-12-07] MEDS: SYMBICORT 160-4.5 MCG INHALER INHALATION SCH (19:47)
[2019-12-07] MEDS ORDERED: HYDROXYCHLOROQUINE SULFATE 200 MG TAB PO SCH (21:00)
[2019-12-07] MEDS ORDERED: [UNRECOGNIZED DRUG - OTHER] BOTH EYES SCH (21:00)
[2019-12-07] MEDS: ZINC SULFATE 220 MG CAP PO SCH (22:15)
[2019-12-07] MEDS: HYDROXYCHLOROQUINE SULFATE 200 MG TAB PO SCH (22:15)
[2019-12-07] MEDS: TAMSULOSIN 0.4 MG CAP.ER.24H PO SCH (22:15)
--- NOTE | 2019-12-07 23:25 | P.CONS ---
History of Present Illness - Reason for Consult Consult date: 12/07/19 pneumonia Requesting physician: Ro Baer - Chief Complaint cough and hypoxia x few days - History of Present Illness Patient is 74-year-old male resident of a local alf with a past medical he significant for COPD patient apparently has recently noticed to having increasing shortness of breath and a congested cough patient apparently did have a COVID-19 testing done at the alf which came back positive patient was noticed to be hypoxic subsequently patient has been sent to [facility] ER for further management on arrival to the ER the patient has been afebrile he did have a normal white count with no lymphopenia liver enzymes LDH are normal procalcitonin was normal CRP was elevated patient did have a CT angiogram that was negative for PE did shows moderate emphysematous changes of the lung of the lungs were grossly clear patient did have a COVID-19 testing done at this facility came back negative patient has been started on Plaquenil admitted hospital and facility was consulted for further management of antibiotic therapy at the time of evaluation patient had denies any chest pain or shortness of breath minimal cough no sputum no URI symptoms no nausea no vomiting no abdominal pain and no diarrhea. Review of Systems Positive point has been mentioned in HPI rest of the systems are negative Past Medical History Past Medical History: Heart Failure, COPD, Dementia, GERD/Reflux, Hypertension, Osteoarthritis (OA), Prostate Disorder, Vascular Disorder History of Any Multi-Drug Resistant Organisms: None Reported Past Surgical History: Unable to Obtain Additional Past Surgical History / Comment(s): Endovascular stent graft for aortic aneurysm. Past Psychological History: Depression Smoking Status: Unknown if ever smoked Past Alcohol Use History: None Reported Past Drug Use History: None Reported - Past Family History Mother Family Medical History: Myocardial Infarction ([place]) (Mother in her 80s from myocardial infarction.) Father Family Medical History: Dementia (Father had dementia in his late 80s.) Sister(s) Family Medical History: Cancer (Patient had 3 sister 2 of them from some sort of cancer.) Son(s) Family Medical History: No Reported History (Patient has 2 sons no major medical problems) Medications and Allergies Home Medications Medication Instructions Recorded Confirmed Type Budesonide/Formoterol Fumarate 2 puff INHALATION RT-BID@0900,1700 01/03/17 12/07/19 History [Symbicort 160-4.5 Mcg Inhaler] Docusate [Colace] 100 mg PO DAILY@89901/03/17 12/07/19 History Ocusoft Lid Scrub Pad 1 applic BOTH EYES HS@209901/03/17 12/07/19 History Tamsulosin [Flomax] 0.4 mg PO HS@209901/03/17 12/07/19 History Albuterol Sulfate [Proventil Hfa] 1 puff INHALATION RT-QID PRN 12/07/19 12/07/19 History Cholecalciferol [Vitamin D3 (25 2,000 unit PO DAILY 12/07/19 12/07/19 History Mcg = 1000 Iu)] Ensure Clear 1 can PO TID-W/MEALS 12/07/19 12/07/19 History Fluticasone Nasal [place] [Flonase 1 spray EA NOSTRIL BID 12/07/19 12/07/19 History Nasal [place]] Fluticasone/Vilanterol [Breo 1 puff INHALATION RT-DAILY@89912/07/19 12/07/19 History Ellipta 200-25 Mcg INH] Furosemide [Lasix] 20 mg PO DAILY@59912/07/19 12/07/19 History Hydroxychloroquine Sulfate 200 mg PO DIRECTED 12/07/19 12/07/19 History [Plaquenil] Pantoprazole [Protonix] 40 mg PO DAILY@59912/07/19 12/07/19 History Sertraline HCl [Zoloft] 25 mg PO DAILY@89912/07/19 12/07/19 History Zinc 50 mg PO HS@209912/07/19 12/07/19 History Allergies Allergy/AdvReac Type Severity Reaction Status Date / Time No Known Allergies Allergy Verified 12/07/19 08:36 Physical Exam Vitals: Vital Signs Temp Pulse Pulse Resp BP BP Pulse Ox 12/07/19 16:30 98 F 56 L 16 136/76 98 12/07/19 14:30 98.2 F 64 18 176/91 100 12/07/19 13:30 59 L 17 168/91 100 12/07/19 13:00 57 L 18 173/94 100 12/07/19 12:30 63 18 173/99 100 12/07/19 12:00 65 18 169/91 100 12/07/19 11:25 81 20 150/82 100 12/07/19 10:07 81 22 142/97 99 12/07/19 08:40 20 12/07/19 08:36 98.2 F 80 20 135/97 100 Intake and Output 12/07/19 12/07/19 12/08/19 14:59 22:59 06:59 Other: Weight 92.533 kg GENERAL DESCRIPTION: Elderly male lying in bed, no distress. No tachypnea or accessory muscle of respiration use. HEENT: Shows Pallor , no scleral icterus. Oral mucous membrane is dry. NECK: Trachea central, no thyromegaly. LUNGS: Unlabored breathing. Decreased intensity of breath sounds . No wheeze or crackle. HEART: S1, S2, regular rate and rhythm. ABDOMEN: Soft, no tenderness , guarding or rigidity EXTREMITIES: No edema of feet. SKIN: No rash, no masses palpable. NEUROLOGICAL: The patient is awake, alert, oriented x2, mood and affect normal. Results CBC & Chem 7: 12/07/19 08:50 12/07/19 08:50 Labs: Abnormal Lab Results - Last 24 Hours (Table) 12/07/19 12/07/19 12/07/19 Range/Units 08:50 08:50 08:50 RBC 4.14 L (4.30-5.90) m/uL Hgb 11.1 L (13.0-17.5) gm/dL Hct 36.5 L (39.0-53.0) % MCHC 30.3 L (31.0-37.0) g/dL D-Dimer 6.15 H (<0.60) mg/L FEU Carbon Dioxide 35 H (22-30) mmol/L Plasma Lactic Acid Michael (0.7-2.0) mmol/L Ferritin 21.8 L (22.0-322.0) ng/mL C-Reactive Protein 30.8 H (<10.0) mg/L Albumin 3.3 L (3.5-5.0) g/dL 12/07/19 Range/Units 08:50 RBC (4.30-5.90) m/uL Hgb (13.0-17.5) gm/dL Hct (39.0-53.0) % MCHC (31.0-37.0) g/dL D-Dimer (<0.60) mg/L FEU Carbon Dioxide (22-30) mmol/L Plasma Lactic Acid Michael 0.6 L (0.7-2.0) mmol/L Ferritin (22.0-322.0) ng/mL C-Reactive Protein (<10.0) mg/L Albumin (3.5-5.0) g/dL Assessment and Plan Assessment: patient presenting to the hospital with increasing shortness of breath congested cough and this patient did have underlying COPD/emphysema likely representing COPD exacerbation with tracheobronchitis in this patient CT angiogram did not show any evidence of groundglass opacity or consolidation to be suspicious for viral or bacterial pneumonia, patient also did not have any lymphopenia elevated liver enzymes or LDH-patient usually seen with COVID-19 cases. (1) Tracheobronchitis Current Visit: Yes Status: Acute Code(s): J40 - BRONCHITIS, NOT SPECIFIED ACUTE OR CHRONIC SNOMED Code(s): 27411288 Plan: 1-we will try to obtain a sputum for Gram stain culture 2-we will add doxycycline milligrams twice a day 3- Continue steroids and bronchodilators per pulmonary 4-Plaquenil can be safely discontinued as clinical suspicion low for COVID-19 pneumonia We will follow on clinical condition and cultures to further adjust medication if needed Thank you for this consultation we will follow the patient along with you Time with Patient: Greater than 30
[2019-12-08] MEDS: SODIUM CHLORIDE 0.9% 1,000 ML IV SCH ×3 (06:10→21:10)
[2019-12-08] MEDS: FUROSEMIDE 20 MG TAB PO SCH (06:10)
[2019-12-08] MEDS: PANTOPRAZOLE 40 MG TABLET PO SCH (06:10)
[2019-12-08] MEDS: SYMBICORT 160-4.5 MCG INHALER INHALATION SCH ×2 (07:14→19:13)
[2019-12-08] MEDS: ALBUTEROL HFA INHALER INHALATION PRN ×4 (07:15→19:14)
[2019-12-08] MEDS: DOCUSATE 100 MG CAP PO SCH (08:17)
[2019-12-08] MEDS: DOXYCYCLINE 100 MG CAP PO SCH ×2 (08:17→21:10)
[2019-12-08] MEDS: HYDROXYCHLOROQUINE SULFATE 200 MG TAB PO SCH (08:17)
[2019-12-08] MEDS: SERTRALINE 25 MG TAB PO SCH (08:17)
[2019-12-08] MEDS: ENOXAPARIN 30 MG/0.3 ML SYRINGE SQ SCH (08:17)
[2019-12-08] MEDS ORDERED: PANTOPRAZOLE 40 MG/10 ML VIAL IV SCH (09:00)
[2019-12-08 09:18] LABS: Albumin 2.7 g/dL (3.5-5.0); Calcium 8.2 mg/dL (8.4-10.2); Potassium 4.1 mmol/L (3.5-5.1); Total Bilirubin 0.4 mg/dL (0.2-1.3); Total Protein 5.7 g/dL (6.3-8.2)
[2019-12-08 09:38] LABS: Basophils # (A) 0.1 k/uL (0-0.2); Basophils % (A) 1 %; Eosinophils # (A) 0.2 k/uL (0-0.7); Eosinophils % (A) 3 %; HCT 32.7 % (39.0-53.0); HGB 10.1 gm/dL (13.0-17.5); Hypochromasia Marked; Lymphocytes # (A) 1.3 k/uL (1.0-4.8); Lymphocytes % (A) 22 %; MCH 27.8 pg (25.0-35.0); MCV 89.7 fL (80.0-100.0); Mean Platelet Volume 7.3; Monocytes # (A) 0.4 k/uL (0-1.0); Monocytes % (A) 6 %; Neutrophils # (A) 3.9 k/uL (1.3-7.7); Neutrophils % (A) 67 %; Platelet Count 233 k/uL (150-450); RBC 3.65 m/uL (4.30-5.90); RDW 14.6 % (11.5-15.5); WBC 5.9 k/uL (3.8-10.6)
--- NOTE | 2019-12-08 10:17 | P.PN ---
Subjective Progress Note Date: 12/08/19 Principal diagnosis: Severe hypoxia and shortness of breath, COPD with mild exacerbation, possible aspiration pneumonia, CHF, hypertension, advanced dementia. 74-year-old male admitted from [facility] for severe hypoxia shortness of breath fever apparently his roommate at [facility] had Covid 19 patient had an exposure to it, testing came back negative and the marker done for the Covid 19 came back with low suspicion at this point, despite patient was initially started with hydrochloric when was seen infectious disease and decided to treated as a pneumonia by taking him off the hydrochloric when and adding doxycycline and treat this as an aspiration pneumonia with COPD exacerbation. Patient hypoxia has improved some still on O2 2 L is maintaining over 96 p ercentile patient still have significant cough and mild wheezes. Objective - Vital Signs Vital signs: Vital Signs Temp 98.1 F 12/08/19 07:20 Pulse 60 12/08/19 07:20 Resp 20 12/08/19 07:20 BP 136/91 12/08/19 07:20 Pulse Ox 97 12/08/19 07:20 Intake & Output 12/07/19 12/08/19 12/08/19 18:59 06:59 18:59 Intake Total 40 876 Balance 40 876 Weight 92.533 kg Intake: Oral 40 876 Other: Voiding Method Diaper Incontinent # Voids 1 - Exam Review of Systems Constitutional: Reports as per HPI, Reports weight loss, Denies anorexia, Denies chills, Denies chronic headaches, Denies chronic pain, Denies daytime sleepiness, Denies fatigue, Denies fever, Denies lethargy, Denies malaise, Denies night sweats, Denies poor appetite, Denies sweats, Denies weakness, Denies weight gain Ears, nose, mouth and throat: Reports as per HPI Cardiovascular: Reports as per HPI, Reports decreased exercise tolerance, Reports shortness of breath Respiratory: Reports cough Gastrointestinal: Reports as per HPI Genitourinary: Reports as per HPI, Reports urinary retention Musculoskeletal: Reports as per HPI, Reports gait dysfunction, Reports limitation of motion, Reports muscle weakness Integumentary: Reports as per HPI Neurological: Reports as per HPI, Denies aphasia, Denies ataxia, Denies balance difficulties, Denies burning pain, Denies change in mentation, Denies change in smell/taste, Denies change in speech, Denies confusion, Denies convulsions, Denies double vision, Denies gait dysfunction, Denies head injury, Denies headaches, Denies hearing difficulties, Denies lack of coordination, Denies loss of vision, Denies memory loss, Denies migraines, Denies motor disturbance, Denies numbness, Denies paralysis, Denies paresthesias, Denies seizures, Denies sensory deficit, Denies spasticity, Denies syncope, Denies tic, Denies tingling, Denies transient paralysis, Denies tremors, Denies vertigo, Denies weakness, Denies visual changes Psychiatric: Reports as per HPI, Reports confusion, Reports depression, Reports sleep disturbances Endocrine: Reports as per HPI, Reports weight change Hematologic/Lymphatic: Reports as per HPI Allergic/Immunologic: Reports as per HPI, Reports allergic rhinitis, Reports persistent infections, Reports wheezing Physical examination: General Appearance: Alert, very confused still having significant cough and mild shortness of breath. Neck HEENT: Supple, no lymphadenopathy, no thyroid enlargement, no carotid bruits. Lungs: Decreased breath some bilaterally with fine rhonchi positive mild crackles in the bases positive mild expiratory wheezes. Chest Wall: Decrease expansion with deep inspiration no tenderness and no def ormity was found on exam, no costochondral pain or discomfort. Heart: Regular rate and rhythm, S1, S2 positive S3 positive JVD. Back: Symmetric, no curvature, ROM normal, no CVA tenderness. Abdomen: Distended soft positive bowel sound organomegaly. No rebound or rigidity. Extremities: Trace edema decreased pulse bilaterally with slight discoloration from the knee down.. Pulses: 2+ and symmetric. Skin: Skin color, texture, tugor normal, no rashes or lesions. Neurologic: Alert severely confuse, cranial nerves II through XII intact, has generalized weakness not able to do gait exam. - Labs CBC & Chem 7: 12/08/19 07:58 12/08/19 07:58 Labs: Abnormal Lab Results - Last 24 Hours (Table) 12/07/19 12/08/19 12/08/19 Range/Units 08:50 07:58 07:58 RBC 3.65 L (4.30-5.90) m/uL Hgb 10.1 L (13.0-17.5) gm/dL Hct 32.7 L (39.0-53.0) % Calcium 8.2 L (8.4-10.2) mg/dL Ferritin 21.8 L (22.0-322.0) ng/mL Total Protein 5.7 L (6.3-8.2) g/dL Albumin 2.7 L (3.5-5.0) g/dL Assessment and Plan Assessment: 1 acute pneumonitis: Most likely noncovered 19 at this point with all marker negative patient seen infectious disease and pulmonary hydrochloric one was stopped at this point patient was switched to doxycycline. 2 severe dyspnea and shortness of breath: Secondary to aspiration pneumonia and COPD continue to treat patient for mild COPD exacerbation beside pneumonitis. 3 mild anemia: Continue iron and multivitamin supplement on need for transfusion at this point. 4 COPD excessive patient: Continue O2, continue Symbicort and albuterol and if needed smaller dose of steroid IV highly recommended. [address] of the chest: Been watch by pulmonary if patient need bronchoscopy for further diagnosis can be arranged after patient been stable. 6 type 2 diabetes: Continue Accu-Chek with sliding scales coverage. 7 advance dementia: Most likely vascular dementia, has been on Aricept 5 mg a day. 8 abdominal aneurysm: Been watch patient had aortic stent graft. 9 pulmonary hypertension: Continue Lasix continue O2 and continue to manage COPD at this point. 10 debility: Continue supportive care was start patient on PTOT and the next 24 hours. CODE STATUS: Full code. Discharge planning: Depend of the improvement in the next 48 hours patient might be able to be discharged back to [facility] on Tuesday or Tuesday.
--- NOTE | 2019-12-08 13:25 | P.GSCN ---
History of Present Illness Consult date: 12/08/19 Reason for Consult: thoracic/abdominal aortic aneurysm. Requesting physician: Marty Maynard History of present illness: patient is a 74-year-old male who lives in an extended care facility who was admitted to the hospital for treatment of a pneumonia. This was originally thought to be Coaved 19,however this has been now changed to a bacterial pneumonia. During his workup he did undergo computed tomography scan of his chest. This demonstrated a thoracic aneurysm. Additionally there is a thoracic stent graft previously placed, most likely for dissection issues. However the patient cannot give any history and is unknown when, where or for that reason the stent graft was placed.the computed tomography scan suggests abdominal aortic aneurysmal disease however the computed tomography scan images failed to reach the renal arteries and levels below. impression: #1: Thoracic aortic ectasia/small aneurysmal dilation. #2: Status post stent graft repair of suspected thoracic dissection. #3: Currently being treated for pneumonia, possible aspiration pneumonia. #4: Suspect abdominal aortic aneurysm, size which has not been fully determined. #5 history of dyslipidemia. #6 vascular dementia with orientation to person only. #6: History of chronic obstructive borders disease. #7: Bilateral femoral occlusions. #8: Anemia. #9: Diabetes mellitus type 2 Recommendation: #1:Overall the patient appears to be a very poor surgical candidate. #2: Would obtain ultrasound of the aorta see if there is large abdominal aortic aneurysm. Ultrasound has been ordered. Should family wished to proceed with repair this could be considered depending on the size of the aneurysm. #3: The thoracic Aorta is not large enough to consider repair at this time. #4: Will follow with you. Past Medical History Past Medical History: Heart Failure, COPD, Dementia, GERD/Reflux, Hypertension, Osteoarthritis (OA), Prostate Disorder, Vascular Disorder History of Any Multi-Drug Resistant Organisms: None Reported Past Surgical History: Unable to Obtain Additional Past Surgical History / Comment(s): Endovascular stent graft for aortic aneurysm. Past Psychological History: Depression Smoking Status: Unknown if ever smoked Past Alcohol Use History: None Reported Past Drug Use History: None Reported - Past Family History Mother Family Medical History: Myocardial Infarction ([place]) (Mother in her 80s from myocardial infarction.) Father Family Medical History: Dementia (Father had dementia in his late 80s.) Sister(s) Family Medical History: Cancer (Patient had 3 sister 2 of them from some sort of cancer.) Son(s) Family Medical History: No Reported History (Patient has 2 sons no major medical problems) Medications and Allergies Home Medications Medication Instructions Recorded Confirmed Type Budesonide/Formoterol Fumarate 2 puff INHALATION RT-BID@0900,1700 01/03/17 12/07/19 History [Symbicort 160-4.5 Mcg Inhaler] Docusate [Colace] 100 mg PO DAILY@89901/03/17 12/07/19 History Ocusoft Lid Scrub Pad 1 applic BOTH EYES HS@209901/03/17 12/07/19 History Tamsulosin [Flomax] 0.4 mg PO HS@209901/03/17 12/07/19 History Albuterol Sulfate [Proventil Hfa] 1 puff INHALATION RT-QID PRN 12/07/19 12/07/19 History Cholecalciferol [Vitamin D3 (25 2,000 unit PO DAILY 12/07/19 12/07/19 History Mcg = 1000 Iu)] Ensure Clear 1 can PO TID-W/MEALS 12/07/19 12/07/19 History Fluticasone Nasal [place] [Flonase 1 spray EA NOSTRIL BID 12/07/19 12/07/19 History Nasal [place]] Fluticasone/Vilanterol [Breo 1 puff INHALATION RT-DAILY@89912/07/19 12/07/19 History Ellipta 200-25 Mcg INH] Furosemide [Lasix] 20 mg PO DAILY@59912/07/19 12/07/19 History Hydroxychloroquine Sulfate 200 mg PO DIRECTED 12/07/19 12/07/19 History [Plaquenil] Pantoprazole [Protonix] 40 mg PO DAILY@59912/07/19 12/07/19 History Sertraline HCl [Zoloft] 25 mg PO DAILY@89912/07/19 12/07/19 History Zinc 50 mg PO HS@209912/07/19 12/07/19 History Allergies Allergy/AdvReac Type Severity Reaction Status Date / Time No Known Allergies Allergy Verified 12/07/19 08:36 Surgical - Exam Osteopathic Statement: *. No significant issues noted on an osteopathic structural exam other than those noted in the History and Physical/Consult. Vital Signs Temp Pulse Resp BP Pulse Ox 98.2 F 80 20 135/97 100 12/07/19 08:36 12/07/19 08:36 12/07/19 08:36 12/07/19 08:36 12/07/19 08:36 - Neck no masses, no bruits, trachea midline, no lymphadectomy, no venous distension lymphadenopathy: absent, carotid bruit: absent - Respiratory normal expansion - Cardiovascular Rhythm: regular - Abdomen Abdomen: soft, non tender, bowel sounds (normoactive bowel sounds are noted.), guarding (no guarding noted), rebound (no rebound tenderness noted) Hernia: none - Integumentary no rash, no abnormal pigmentation - Neurologic other (the patient is unable to state his age and does not know what state in which he resides.) femoral pulses are intact bilaterally with the popliteal, DP and PT pulses are absent bilaterally. There is no cyanosis or leg edema noted. Results - Labs 12/08/19 07:58 12/08/19 07:58 Abnormal Lab Results - Last 24 Hours (Table) 12/07/19 12/08/19 12/08/19 Range/Units 08:50 07:58 07:58 RBC 3.65 L (4.30-5.90) m/uL Hgb 10.1 L (13.0-17.5) gm/dL Hct 32.7 L (39.0-53.0) % Calcium 8.2 L (8.4-10.2) mg/dL Ferritin 21.8 L (22.0-322.0) ng/mL Total Protein 5.7 L (6.3-8.2) g/dL Albumin 2.7 L (3.5-5.0) g/dL Microbiology - Last 24 Hours (Table) 12/07/19 08:50 Blood Culture - Preliminary Blood No Growth after 24 hours Diabetes panel 12/08/19 Range/Units 07:58 Sodium 139 (137-145) mmol/L Potassium 4.1 (3.5-5.1) mmol/L Chloride 106 (98-107) mmol/L Carbon Dioxide 29 (22-30) mmol/L BUN 17 (9-20) mg/dL Creatinine 1.05 (0.66-1.25) mg/dL Glucose 80 (74-99) mg/dL Calcium 8.2 L (8.4-10.2) mg/dL AST 19 (17-59) U/L ALT 10 (4-49) U/L Alkaline Phosphatase 70 (38-126) U/L Total Protein 5.7 L (6.3-8.2) g/dL Albumin 2.7 L (3.5-5.0) g/dL Calcium panel 12/08/19 Range/Units 07:58 Calcium 8.2 L (8.4-10.2) mg/dL Albumin 2.7 L (3.5-5.0) g/dL Pituitary panel 12/08/19 Range/Units 07:58 Sodium 139 (137-145) mmol/L Potassium 4.1 (3.5-5.1) mmol/L Chloride 106 (98-107) mmol/L Carbon Dioxide 29 (22-30) mmol/L BUN 17 (9-20) mg/dL Creatinine 1.05 (0.66-1.25) mg/dL Glucose 80 (74-99) mg/dL Calcium 8.2 L (8.4-10.2) mg/dL Adrenal panel 12/08/19 Range/Units 07:58 Sodium 139 (137-145) mmol/L Potassium 4.1 (3.5-5.1) mmol/L Chloride 106 (98-107) mmol/L Carbon Dioxide 29 (22-30) mmol/L BUN 17 (9-20) mg/dL Creatinine 1.05 (0.66-1.25) mg/dL Glucose 80 (74-99) mg/dL Calcium 8.2 L (8.4-10.2) mg/dL Total Bilirubin 0.4 (0.2-1.3) mg/dL AST 19 (17-59) U/L ALT 10 (4-49) U/L Alkaline Phosphatase 70 (38-126) U/L Total Protein 5.7 L (6.3-8.2) g/dL Albumin 2.7 L (3.5-5.0) g/dL
--- NOTE | 2019-12-08 13:47 | P.PN ---
Subjective Progress Note Date: 12/08/19 Principal diagnosis: Covid19 pneumonia, patient has been on therapy with Plaquinil from ECF Elevated d-dimer likely related to above Acute hypoxic respiratory failure is multifactorial processes above as well as COPD Soft tissue density in the right lower lobe branches, will look into virtual endoscopy Aneurysmal dilatation of the ascending thoracic aorta Hypertension hypertensive cardiovascular disease Dec 08 2019, patient seen eval examined during the rounds L reviewed medications reviewed on 2 L oxygen breathing comfortably oxygen saturation mid 90s, no obvious distress is present, patient has been evaluated by infectious disease services repeat inflammatory parameters within normal limit repeat covert testing is negative likely patient does not have overt pneumonia, computed tomography scan possibly showing mucus plugging and right lower lobe, continue deep breathing exercises incentive spirometry, we'll repeat CT chest/PET as outpatient and possibly consider doing a bronchoscopy if artifact is still seen This is a 74-year-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, patient was in stable state of health until about 1-2 days ago when started having cough congestion shortness of breath, she was tested for COVID which came back positive due to ongoing breathing difficulty and low oxygen saturation transferred to [facility] for further evaluation, he has a significant history of COPD chronic congestive heart failure chronic diastolic heart failure, status post aortic endovascular graft, his chest x-ray significant for cardiomegaly along with COPD-like changes, computed tomography scan is negative for pulmonary embolism, he has been noted to have significant changes along with soft tissue density in the right segmental and subsegmental bronchi and right lower lobe , which is about 1.2 cm in thickness, small pericardial effusions seen, descending uterus 5.2 cm with crescentic mural thrombus with aortic stent graft Objective - Vital Signs Vital signs: Vital Signs Temp 98.3 F 12/08/19 11:28 Pulse 74 12/08/19 11:28 Resp 18 12/08/19 11:28 BP 121/77 12/08/19 11:28 Pulse Ox 99 12/08/19 11:28 Intake & Output 12/07/19 12/08/19 12/08/19 18:59 06:59 18:59 Intake Total 40 876 Balance 40 876 Weight 92.533 kg Intake: Oral 40 876 Other: Voiding Method Diaper Incontinent # Voids 1 - Exam - Constitutional General appearance: cooperative, disheveled - EENT Eyes: EOMI Ears: bilateral: normal - Neck Neck: normal ROM - Respiratory Respiratory: bilateral: diminished - Cardiovascular Rhythm: regular Heart sounds: normal: S1, S2 - Gastrointestinal General gastrointestinal: normal bowel sounds, soft - Integumentary Integumentary: decreased turgor - Neurologic Neurologic: CNII-XII intact - Musculoskeletal Musculoskeletal: gait normal, generalized weakness - Psychiatric Psychiatric: A&O x's 3, appropriate affect, intact judgment & insight - Labs CBC & Chem 7: 12/08/19 07:58 12/08/19 07:58 Labs: Abnormal Lab Results - Last 24 Hours (Table) 12/07/19 12/08/19 12/08/19 Range/Units 08:50 07:58 07:58 RBC 3.65 L (4.30-5.90) m/uL Hgb 10.1 L (13.0-17.5) gm/dL Hct 32.7 L (39.0-53.0) % Calcium 8.2 L (8.4-10.2) mg/dL Ferritin 21.8 L (22.0-322.0) ng/mL Total Protein 5.7 L (6.3-8.2) g/dL Albumin 2.7 L (3.5-5.0) g/dL Microbiology - Last 24 Hours (Table) 12/07/19 08:50 Blood Culture - Preliminary Blood No Growth after 24 hours Assessment and Plan Assessment: Less likely Covid19 pneumonia, patient can be taken off from Plaquinil from ECF Tracheobronchitis Acute COPD exacerbation Impacted mucous plug in right lower lobe Elevated d-dimer likely related to above Acute hypoxic respiratory failure is multifactorial processes above as well as COPD Soft tissue density in the right lower lobe branches, will do a chest CT/pet as outpatient and possible bronchoscopy Aneurysmal dilatation of the ascending thoracic aorta Hypertension hypertensive cardiovascular disease Plan: Continue supportive care Supplemental oxygen Continue home medications Chest CT/PET as outpatient Pulmonary toilet Deep breathing sense incentive spirometry Time with Patient: Greater than 30
[2019-12-08 16:40] LABS: Ferritin 22.1 ng/mL (22.0-322.0)
--- NOTE | 2019-12-08 17:38 | PN ---
PROGRESS NOTE DATE OF SERVICE: 12/08/2019 REASON FOR FOLLOWUP: Possible COPD exacerbation, question of Covid-19. INTERVAL HISTORY: The patient is currently afebrile. Patient is breathing more comfortably. Denies having any chest pain or cough. No nausea, vomiting. No abdominal pain or diarrhea. PHYSICAL EXAMINATION: Blood pressure 121/77, pulse of 74, temperature 98.3. General description is an elderly male lying in bed in no distress. Respiratory system: Unlabored breathing. Clear to auscultation anteriorly. Heart S1, S2. Regular rate and rhythm. Abdomen soft, no tenderness. LABS: Hemoglobin is 10.1, white count of 5.9. BUN of 7, creatinine 1.05. DIAGNOSTIC IMPRESSION AND PLAN: Patient admitted to the hospital with hypoxemia and shortness of breath and cough with outpatient culture positive for Covid-19 though testing was negative here. The patient with possible chronic obstructive pulmonary disease exacerbation and tracheobronchitis. Covered with to continue along with steroids and bronchodilator. Continue to follow with Pulmonary and monitor clinical course closely. MMODL / IJN: [id number] /
[2019-12-08 18:02] LABS: Hemoglobin A1C 5.8 % (4.0-6.0)
[2019-12-08] MEDS: TAMSULOSIN 0.4 MG CAP.ER.24H PO SCH (21:10)
[2019-12-08] MEDS: ZINC SULFATE 220 MG CAP PO SCH (21:10)
[2019-12-09] MEDS: PANTOPRAZOLE 40 MG TABLET PO SCH (05:29)
[2019-12-09] MEDS: FUROSEMIDE 20 MG TAB PO SCH (05:29)
[2019-12-09 07:51] LABS: Basophils # (A) 0.1 k/uL (0-0.2); Basophils % (A) 1 %; Eosinophils # (A) 0.2 k/uL (0-0.7); Eosinophils % (A) 4 %; HCT 32.7 % (39.0-53.0); HGB 10.2 gm/dL (13.0-17.5); Hypochromasia Marked; Lymphocytes # (A) 1.2 k/uL (1.0-4.8); Lymphocytes % (A) 22 %; MCH 27.7 pg (25.0-35.0); MCHC 31.1 g/dL (31.0-37.0); MCV 89.2 fL (80.0-100.0); Mean Platelet Volume 6.8; Monocytes # (A) 0.4 k/uL (0-1.0); Monocytes % (A) 7 %; Neutrophils # (A) 3.4 k/uL (1.3-7.7); Neutrophils % (A) 64 %; Platelet Count 232 k/uL (150-450); RBC 3.67 m/uL (4.30-5.90); RDW 14.7 % (11.5-15.5); WBC 5.3 k/uL (3.8-10.6)
[2019-12-09] MEDS: SERTRALINE 25 MG TAB PO SCH (07:58)
[2019-12-09] MEDS: DOXYCYCLINE 100 MG CAP PO SCH ×2 (07:58→20:07)
[2019-12-09] MEDS: ENOXAPARIN 40 MG/0.4 ML SYRINGE SQ SCH (07:59)
[2019-12-09] MEDS: DOCUSATE 100 MG CAP PO SCH (07:59)
[2019-12-09 08:11] LABS: Albumin 2.9 g/dL (3.5-5.0); Calcium 8.2 mg/dL (8.4-10.2); Potassium 3.7 mmol/L (3.5-5.1); Total Bilirubin 0.2 mg/dL (0.2-1.3); Total Protein 5.9 g/dL (6.3-8.2)
[2019-12-09] MEDS: ALBUTEROL HFA INHALER INHALATION PRN ×4 (08:44→20:20)
[2019-12-09] MEDS: SYMBICORT 160-4.5 MCG INHALER INHALATION SCH ×2 (08:44→20:19)
--- NOTE | 2019-12-09 08:57 | US ---
EXAMINATION TYPE: US abdomen complete DATE OF EXAM: 12/09/2019 COMPARISON: CT chest 12/07/2019 CLINICAL HISTORY: AAA. Difficult and limited exam due to overlying bowel gas. Patient is a poor histo mimi. Unable to roll onto side or take a breath in and hold EXAM MEASUREMENTS: Liver Length: 16.0 cm Gallbladder Wall: Unable to visualize, possibly surgically absent CBD: 0.5 cm Spleen: 9.9 cm Right Kidney: 9.6 x 5.8 x 5.8 cm Left Kidney: 11.1 x 7.0 x 6.5 cm Pancreas: Obscured by bowel gas Liver: wnl as visualized, limited visualization Gallbladder: Unable to visualize, possibly surgically absent- patient could not remember Evidence for sonographic Elizalde's sign: No CBD: wnl as visualized Spleen: wnl Right Kidney: No hydronephrosis. Loss of corticomedullary differentiation. Cystic area visualized lo wer pole measuring 1.5 x 1.2 x 1.1 cm Left Kidney: No hydronephrosis or masses seen Upper IVC: wnl Abd Aorta: Proximal aorta is enlarged measuring 4.4 x 4.4 x 3.9 cm The pancreas is not well-visualized. The liver is normal in size without biliary dilatation. The gallbladder is not visualized. Distal common hepatic duct measures 5 mm. The spleen is normal in size. The left kidney is normal. There is a 1.5 cm cystic lesion near the lower pole. This does not meet th e requirements of a simple cyst. Visualized portions of aorta and IVC are unremarkable. IMPRESSION: 1. FAILURE TO VISUALIZE THE GALLBLADDER MAY REPRESENT PREVIOUS CHOLECYSTECTOMY. 2. CYSTIC LESION WITHIN THE LOWER POLE OF THE RIGHT KIDNEY DOES NOT MEET THE CRITERIA OF A SIMPLE CYS T AND FURTHER INVESTIGATION WITH CT OR MR WOULD BE SUGGESTED.
--- NOTE | 2019-12-09 09:00 | P.PN ---
Subjective Progress Note Date: 12/09/19 Principal diagnosis: Severe hypoxia and shortness of breath, COPD with mild exacerbation, possible aspiration pneumonia, CHF, hypertension, advanced dementia. 74-year-old male admitted from [facility] for severe hypoxia shortness of breath fever apparently his roommate at [facility] had Covid 19 patient had an exposure to it, testing came back negative and the marker done for the Covid 19 came back with low suspicion at this point, despite patient was initially started with hydrochloric when was seen infectious disease and decided to treated as a pneumonia by taking him off the hydrochloric when and adding doxycycline and treat this as an aspiration pneumonia with COPD exacerbation. Patient hypoxia has improved some still on O2 2 L is maintaining over 96 p ercentile patient still have significant cough and mild wheezes. 12/08: Patient was seen vascular yesterday ended up going for abdominal ultrasound to check on the size of his abdominal aneurysm, also has bilateral stenosis and possible occlusion of the iliac artery patient is not a candidate for surgery at this point and he is not having any significant complaint. Even his Covid 19 testing was positive in the residential but is negative as it has done in the hospital with all the marker are negative patient is to be treated for pneumonitis continue O2 continue supportive care if his stable he can be discharged back to [facility] tomorrow the dilemma with her [facility] are going to ask to do the test one more time before his discharge and if that's the case can be done tomorrow morning before his discharge back to [facility] again. Objective - Vital Signs Vital signs: Vital Signs Temp 97.7 F 12/09/19 07:00 Pulse 73 12/09/19 07:00 Resp 18 12/09/19 07:00 BP 132/82 12/09/19 07:00 Pulse Ox 97 12/09/19 07:00 Intake & Output 12/08/19 12/09/19 12/09/19 18:59 06:59 18:59 Intake Total 1468 300 Balance 1468 300 Intake: Intake, IV Titration 300 Amount Sodium Chloride 0.9% 1, 300 000 ml @ 100 mls/hr IV . Q10H RORY Rx#:[id number] Oral 1468 Other: Voiding Method Diaper Diaper Diaper Incontinent Incontinent Incontinent # Voids 1 1 - Exam Review of Systems Constitutional: Reports as per HPI, Reports weight loss, Denies anorexia, Denies chills, Denies chronic headaches, Denies chronic pain, Denies daytime sleepiness, Denies fatigue, Denies fever, Denies lethargy, Denies malaise, Denies night sweats, Denies poor appetite, Denies sweats, Denies weakness, D enies weight gain Ears, nose, mouth and throat: Reports as per HPI Cardiovascular: Reports as per HPI, Reports decreased exercise tolerance, Reports shortness of breath Respiratory: Reports cough Gastrointestinal: Reports as per HPI Genitourinary: Reports as per HPI, Reports urinary retention Musculoskeletal: Reports as per HPI, Reports gait dysfunction, Reports limitation of motion, Reports muscle weakness Integumentary: Reports as per HPI Neurological: Reports as per HPI, Denies aphasia, Denies ataxia, Denies balance difficulties, Denies burning pain, Denies change in mentation, Denies change in smell/taste, Denies change in speech, Denies confusion, Denies convulsions, Denies double vision, Denies gait dysfunction, Denies head injury, Denies headaches, Denies hearing difficulties, Denies lack of coordination, Denies loss of vision, Denies memory loss, Denies migraines, Denies motor disturbance, Denies numbness, Denies paralysis, Denies paresthesias, Denies seizures, Denies sensory deficit, Denies spasticity, Denies syncope, Denies tic, Denies tingling, Denies transient paralysis, Denies tremors, Denies vertigo, Denies weakness, Denies visual changes Psychiatric: Reports as per HPI, Reports confusion, Reports depression, Reports sleep disturbances Endocrine: Reports as per HPI, Reports weight change Hematologic/Lymphatic: Reports as per HPI Allergic/Immunologic: Reports as per HPI, Reports allergic rhinitis, Reports persistent infections, Reports wheezing Physical examination: General Appearance: Alert, very confused still having significant cough and mild shortness of breath. Neck HEENT: Supple, no lymphadenopathy, no thyroid enlargement, no carotid bruits. Lungs: Decreased breath some bilaterally with fine rhonchi positive mild crackles in the bases positive mild expiratory wheezes. Chest Wall: Decrease expansion with deep inspiration no tenderness and no deformity was found on exam, no costochondral pain or discomfort. Heart: Regular rate and rhythm, S1, S2 positive S3 positive JVD. Back: Symmetric, no curvature, ROM normal, no CVA tenderness. Abdomen: Distended soft positive bowel sound organomegaly. No rebound or rig idity. Extremities: Trace edema decreased pulse bilaterally with slight discoloration from the knee down.. Pulses: 2+ and symmetric. Skin: Skin color, texture, tugor normal, no rashes or lesions. Neurologic: Alert severely confuse, cranial nerves II through XII intact, has generalized weakness not able to do gait exam. - Labs CBC & Chem 7: 12/09/19 07:10 12/09/19 07:10 Labs: Abnormal Lab Results - Last 24 Hours (Table) 12/08/19 12/08/19 12/09/19 Range/Units 07:58 07:58 07:10 RBC 3.65 L 3.67 L (4.30-5.90) m/uL Hgb 10.1 L 10.2 L (13.0-17.5) gm/dL Hct 32.7 L 32.7 L (39.0-53.0) % Calcium 8.2 L (8.4-10.2) mg/dL Total Protein 5.7 L (6.3-8.2) g/dL Albumin 2.7 L (3.5-5.0) g/dL 12/09/19 Range/Units 07:10 RBC (4.30-5.90) m/uL Hgb (13.0-17.5) gm/dL Hct (39.0-53.0) % Calcium 8.2 L (8.4-10.2) mg/dL Total Protein 5.9 L (6.3-8.2) g/dL Albumin 2.9 L (3.5-5.0) g/dL Microbiology - Last 24 Hours (Table) 12/07/19 08:50 Blood Culture - Preliminary Blood No Growth after 24 hours Assessment and Plan Assessment: 1 acute pneumonitis: Most likely noncovered 19 at this point with all marker negative patient seen infectious disease and pulmonary hydrochloric one was stopped at this point patient was switched to doxycycline. 2 severe dyspnea and shortness of breath: Secondary to aspiration pneumonia and COPD continue to treat patient for mild COPD exacerbation beside pneumonitis. 3 Covid 19 dilemma: Patient was tested positive in the residential but was negative here at the hospital and there is no marker indicate of any Covid sign at this point. Patient is not any treatment or management for it and is doing well currently for treating his pneumonitis. Before going back to [facility] he might need to be tested for more time to make sure again still negative before sending him back to [facility] on to completed treatment as pneumonia. 4 COPD excessive patient: Continue O2, continue Symbicort and albuterol and if needed smaller dose of steroid IV highly recommended. [address] of the chest: Been watch by pulmonary if patient need bronchoscopy for further diagnosis can be arranged after patient been stable. 6 type 2 diabetes: Continue Accu-Chek with sliding scales coverage. 7 advance dementia: Most likely vascular dementia, has been on Aricept 5 mg a day. 8 abdominal aneurysm: Been watch patient had aortic stent graft. 9 pulmonary hypertension: Continue Lasix continue O2 and continue to manage COPD at this point. 10 debility: Continue supportive care was start patient on PTOT and the next 24 hours. 11 mild anemia: Continue iron and multivitamin supplement on need for transfusion at this point. CODE STATUS: Full code. Discharge planning: Depend of the improvement in the next 48 hours patient might be able to be discharged back to [facility] on Tuesday or Tuesday.
[2019-12-09] MEDS: ZINC SULFATE 220 MG CAP PO SCH (20:07)
[2019-12-09] MEDS: TAMSULOSIN 0.4 MG CAP.ER.24H PO SCH (20:07)
--- NOTE | 2019-12-10 00:23 | PN ---
PROGRESS NOTE DATE OF SERVICE: 12/09/2019 REASON FOR FOLLOWUP: COPD exacerbation with tracheobronchitis and a question of COVID-19. INTERVAL HISTORY: The patient is currently afebrile. He is breathing comfortably. Denies having any chest pain or any cough. No nausea or vomiting. No abdominal pain or diarrhea. PHYSICAL EXAMINATION: Blood pressure 138/69, pulse of 72, temperature 97.9. He is 95% 2 L nasal cannula. General description is an elderly male lying in bed in no distress. RESPIRATORY SYSTEM: Unlabored breathing, clear to auscultation anteriorly. HEART: S1, S2. Regular rate and rhythm. ABDOMEN: Soft, no tenderness. LABS: Hemoglobin is 10.2, white count 5.3, BUN of 14, creatinine 1.10. DIAGNOSTIC IMPRESSION AND PLAN: Patient admitted to the hospital with shortness of breath, hypoxemia with outpatient COVID-19 positive; however, COVID-19 here has been negative. The patient is currently covered with doxycycline and bronchodilators to continue and monitor clinical course closely. Continue with supportive care. MMODL / IJN: [id number] /
[2019-12-10] MEDS: FUROSEMIDE 20 MG TAB PO SCH (05:34)
[2019-12-10] MEDS: PANTOPRAZOLE 40 MG TABLET PO SCH (05:34)
[2019-12-10] MEDS: ALBUTEROL HFA INHALER INHALATION PRN ×2 (07:05→11:12)
[2019-12-10] MEDS: SYMBICORT 160-4.5 MCG INHALER INHALATION SCH (07:05)
[2019-12-10 07:29] LABS: Basophils # (A) 0.1 k/uL (0-0.2); Basophils % (A) 1 %; Eosinophils # (A) 0.2 k/uL (0-0.7); Eosinophils % (A) 4 %; HCT 32.8 % (39.0-53.0); HGB 10.3 gm/dL (13.0-17.5); Hypochromasia Marked; Lymphocytes # (A) 1.1 k/uL (1.0-4.8); Lymphocytes % (A) 21 %; MCHC 31.4 g/dL (31.0-37.0); MCV 89.2 fL (80.0-100.0); Mean Platelet Volume 7.1; Monocytes # (A) 0.3 k/uL (0-1.0); Monocytes % (A) 6 %; Neutrophils # (A) 3.4 k/uL (1.3-7.7); Neutrophils % (A) 66 %; Platelet Count 230 k/uL (150-450); RBC 3.68 m/uL (4.30-5.90); RDW 14.7 % (11.5-15.5); WBC 5.1 k/uL (3.8-10.6)
[2019-12-10 07:41] VITALS: BP 139/80; PULSE 61; RESP 16; TEMP 97.5
[2019-12-10] MEDS: DOCUSATE 100 MG CAP PO SCH (08:26)
[2019-12-10] MEDS: ENOXAPARIN 40 MG/0.4 ML SYRINGE SQ SCH (08:26)
[2019-12-10] MEDS: SERTRALINE 25 MG TAB PO SCH (08:26)
[2019-12-10] MEDS: DOXYCYCLINE 100 MG CAP PO SCH (08:26)
--- NOTE | 2019-12-10 09:26 | P.DS ---
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 Do you want consulting provider notified?: Yes Primary care physician: Ro Baer [facility] Course: 74-year-old male admitted from [facility] for severe hypoxia shortness of breath fever apparently his roommate at [facility] had Covid 19 patient had an exposure to it, testing came back negative and the marker done for the Covid 19 came back with low suspicion at this point, despite patient was initially started with hydrochloric when was seen infectious disease and decided to treated as a pneumonia by taking him off the hydrochloric when and adding doxycycline and treat this as an aspiration pneumonia with COPD exacerbation. Patient hypoxia has improved some still on O2 2 L is maintaining over 96 percentile patient still have significant cough and mild wheezes. 12/08: Patient was seen vascular yesterday ended up going for abdominal ultrasound to check on the size of his abdominal aneurysm, also has bilateral stenosis and possible occlusion of the iliac artery patient is not a candidate for surgery at this point and he is not having any significant complaint. Even his Covid 19 testing was positive in the [facility] but is negative as it has done in the hospital with all the marker are negative patient is to be treated for pneumonitis continue O2 continue supportive care if his stable he can be discharged back to [facility] tomorrow the dilemma with her [facility] are goi ng to ask to do the test one more time before his discharge and if that's the case can be done tomorrow morning before his discharge back to [facility] again. 12/09: This morning, patient denies any shortness of breath or cough. He is continuing to have weakness. PT and OT have been following. Dr. Bermudez has been following with plan for CT of the chest are PET scan as an outpatient to possibly consider bronchoscopy if artifact is still seen. Abdominal ultrasound revealed no gallbladder. Cystic lesion within the lower pole right kidney does not meet the criteria of a simple cyst. Further investigation with CAT scan or MR would be suggested. Patient has been afebrile, pulse ox 90% on 2 L nasal cannula. Hemoglobin is 10.3. Patient will be discharged back to [facility] today in stable condition. Patient is previously completed his course of Plaquenil. He will be continued on oral antibiotics. Discharge diagnoses: 1 acute pneumonitis 2 severe dyspnea and shortness of breath: Secondary to aspiration pneumonia and COPD 3 Covid 19 infection not present 4 COPD exacerbation [address] of the chest: Been watch by pulmonary if patient need bronchoscopy 6 type 2 diabetes 7 advance dementia: Most likely vascular dementia 8 abdominal aneurysm 9 pulmonary hypertension 10 debility 11 mild anemia 12. Cystic lesion in the right kidney Discharge plan: Return to [facility] Impression and plan of care have been directed as dictated by the signing physician. Karon Hubbard nurse practitioner acting as scribe for signing physician. Patient Condition at Discharge: Good Plan - Discharge Summary New Discharge Prescriptions: New Doxycycline [Vibramycin] 100 mg PO BID #8 cap Continue Budesonide/Formoterol Fumarate [Symbicort 160-4.5 Mcg Inhaler] 2 puff INHALATION RT-BID@0900,1700 Docusate [Colace] 100 mg PO DAILY@0900 Ocusoft Lid Scrub Pad 1 applic BOTH EYES HS@2100 Tamsulosin [Flomax] 0.4 mg PO HS@2100 Albuterol Sulfate [Proventil Hfa] 1 puff INHALATION RT-QID PRN PRN Reason: Wheezing Fluticasone Nasal [place] [Flonase Nasal [place]] 1 spray EA NOSTRIL BID Ensure Clear 1 can PO TID-W/MEALS Fluticasone/Vilanterol [Breo Ellipta 200-25 Mcg INH] 1 puff INHALATION RT- DAILY@0900 Sertraline HCl [Zoloft] 25 mg PO DAILY@0900 Cholecalciferol [Vitamin D3 (25 Mcg = 1000 Iu)] 2,000 unit PO DAILY Pantoprazole [Protonix] 40 mg PO DAILY@0600 Furosemide [Lasix] 20 mg PO DAILY@0600 Zinc 50 mg PO HS@2100 Discontinued Hydroxychloroquine Sulfate [Plaquenil] 200 mg PO DIRECTED Discharge Medication List Budesonide/Formoterol Fumarate [Symbicort 160-4.5 Mcg Inhaler] 2 puff INHALATION RT-BID@0900,1700 01/03/17 [History] Docusate [Colace] 100 mg PO DAILY@89901/03/17 [History] Ocusoft Lid Scrub Pad 1 applic BOTH EYES HS@209901/03/17 [History] Tamsulosin [Flomax] 0.4 mg PO HS@209901/03/17 [History] Albuterol Sulfate [Proventil Hfa] 1 puff INHALATION RT-QID PRN 12/07/19 [History] Cholecalciferol [Vitamin D3 (25 Mcg = 1000 Iu)] 2,000 unit PO DAILY 12/07/19 [History] Ensure Clear 1 can PO TID-W/MEALS 12/07/19 [History] Fluticasone Nasal [place] [Flonase Nasal [place]] 1 spray EA NOSTRIL BID 12/07/19 [History] Fluticasone/Vilanterol [Breo Ellipta 200-25 Mcg INH] 1 puff INHALATION RT- DAILY@89912/07/19 [History] Furosemide [Lasix] 20 mg PO DAILY@59912/07/19 [History] Pantoprazole [Protonix] 40 mg PO DAILY@59912/07/19 [History] Sertraline HCl [Zoloft] 25 mg PO DAILY@89912/07/19 [History] Zinc 50 mg PO HS@209912/07/19 [History] Doxycycline [Vibramycin] 100 mg PO BID #8 cap 12/10/19 [Rx] Follow up Appointment(s)/Referral(s): Ro Baer MD [Primary Care Provider] - 1-2 days Romie Bermudez MD [STAFF PHYSICIAN] - 1 Week Discharge Disposition: TRANSFER TO SNF/F
--- NOTE | 2019-12-10 10:12 | P.PN ---
Subjective Progress Note Date: 12/10/19 Principal diagnosis: Covid19 pneumonia, patient has been on therapy with Plaquinil from ECF Elevated d-dimer likely related to above Acute hypoxic respiratory failure is multifactorial processes above as well as COPD Soft tissue density in the right lower lobe branches, computed tomography scan reviewed most likely mucus plugging Aneurysmal dilatation of the ascending thoracic aorta Hypertension hypertensive cardiovascular disease 12/10/2019, patient is comfortable breathing adequately, denies any chest pain, labs reviewed medications reviewed, due to poor respiratory effort most likely has mucus plugging in the right lower lobe we'll continue to be pacing exercise incentive spirometry, patient will be evaluated outpatient basis in case this Dec 08 2019, patient seen eval examined during the rounds L reviewed medications reviewed on 2 L oxygen breathing comfortably oxygen saturation mid 90s, no obvious distress is present, patient has been evaluated by infectious disease services repeat inflammatory parameters within normal limit repeat covert testing is negative likely patient does not have overt pneumonia, computed tomography scan possibly showing mucus plugging and right lower lobe, continue deep breathing exercises incentive spirometry, we'll repeat CT chest/PET as outpatient and possibly consider doing a bronchoscopy if artifact is still seen This is a 74-year-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, patient was in stable state of health until about 1-2 days ago when started having cough congestion shortness of breath, she was tested for COVID which came back positive due to ongoing breathing difficulty and low oxygen saturation transferred to [facility] for further evaluation, he has a significant history of COPD chronic congestive heart failure chronic diastolic heart failure, status post aortic endovascular graft, his chest x-ray significant for cardiomegaly along with COPD-like changes, computed tomography scan is negative for pulmonary embolism, he has been noted to have significant changes along with soft tissue density in the right segmental and subsegmental bronchi and right lower lobe , which is about 1.2 cm in thickness, small pericardial effusions seen, descending uterus 5.2 cm with crescentic mural thrombus with aortic stent graft Objective - Vital Signs Vital signs: Vital Signs Temp 97.5 F L 12/10/19 07:00 Pulse 61 12/10/19 07:00 Resp 16 12/10/19 07:00 BP 139/80 12/10/19 07:00 Pulse Ox 98 12/10/19 07:00 Intake & Output 12/09/19 12/10/19 12/10/19 18:59 06:59 18:59 Intake Total 858 300 196 Balance 858 300 196 Intake: Intake, IV Titration 200 300 Amount Sodium Chloride 0.9% 1, 200 300 000 ml @ 100 mls/hr IV . Q10H RORY Rx#:[id number] Oral 658 196 Other: Voiding Method Diaper Diaper Incontinent Incontinent # Voids 1 1 - Exam - Constitutional General appearance: cooperative, disheveled - EENT Eyes: EOMI Ears: bilateral: normal - Neck Neck: normal ROM - Respiratory Respiratory: bilateral: diminished - Cardiovascular Rhythm: regular Heart sounds: normal: S1, S2 - Gastrointestinal General gastrointestinal: normal bowel sounds, soft - Integumentary Integumentary: decreased turgor - Neurologic Neurologic: CNII-XII intact - Musculoskeletal Musculoskeletal: gait normal, generalized weakness - Psychiatric Psychiatric: A&O x's 3, appropriate affect, intact judgment & insight - Labs CBC & Chem 7: 12/10/19 07:04 12/09/19 07:10 Labs: Abnormal Lab Results - Last 24 Hours (Table) 12/10/19 Range/Units 07:04 RBC 3.68 L (4.30-5.90) m/uL Hgb 10.3 L (13.0-17.5) gm/dL Hct 32.8 L (39.0-53.0) % Microbiology - Last 24 Hours (Table) 12/07/19 08:50 Blood Culture - Preliminary Blood No Growth after 48 hours Assessment and Plan Assessment: Less likely Covid19 pneumonia, patient can be taken off from Plaquinil from ECF Tracheobronchitis Acute COPD exacerbation Impacted mucous plug in right lower lobe Elevated d-dimer likely related to above Acute hypoxic respiratory failure is multifactorial processes above as well as COPD Soft tissue density in the right lower lobe branches, will do a chest CT/pet as outpatient and possible bronchoscopy Aneurysmal dilatation of the ascending thoracic aorta Hypertension hypertensive cardiovascular disease Plan: Continue supportive care Supplemental oxygen Continue home medications Chest CT/PET as outpatient then will review about need of bronchoscopy Pulmonary toilet Deep breathing sense incentive spirometry Agree with discharge planning to ECF follow-up in outpatient Time with Patient: Greater than 30
== END 2019-12-10 12:04 | DRG 177 ==
LOC: SUPCPDRO 08:25 → EC 08:25 → 4SSUR 12:22
PROVIDERS: ADMIT Family Medicine; ATTEND Family Medicine
DX: J69.0 Pneumonitis due to inhalation of food and vomit (principal); J96.01 Acute respiratory failure with hypoxia; J44.1 Chronic obstructive pulmonary disease with (acute) exacerbation; I31.3 Pericardial effusion (noninflammatory); I50.32 Chronic diastolic (congestive) heart failure; N28.1 Cyst of kidney, acquired; I71.2 Thoracic aortic aneurysm, without rupture; J30.9 Allergic rhinitis, unspecified; D64.9 Anemia, unspecified; E11.9 Type 2 diabetes mellitus without complications; E78.5 Hyperlipidemia, unspecified; F01.50 Vascular dementia, unspecified severity, without behavioral disturbance, psychotic disturbance, mood disturbance, and anxiety; F32.9 Major depressive disorder, single episode, unspecified; I11.0 Hypertensive heart disease with heart failure; I27.20 Pulmonary hypertension, unspecified; I51.3 Intracardiac thrombosis, not elsewhere classified; Z95.828 Presence of other vascular implants and grafts; N40.0 Benign prostatic hyperplasia without lower urinary tract symptoms; R79.1 Abnormal coagulation profile; I70.208 Unspecified atherosclerosis of native arteries of extremities, other extremity; Z20.828 Contact with and (suspected) exposure to other viral communicable diseases; Z66 Do not resuscitate; Z74.01 Bed confinement status; Z79.51 Long term (current) use of inhaled steroids; Z79.899 Other long term (current) drug therapy; Z81.8 Family history of other mental and behavioral disorders; Z82.49 Family history of ischemic heart disease and other diseases of the circulatory system; Z86.79 Personal history of other diseases of the circulatory system; Z99.81 Dependence on supplemental oxygen
CPT/HCPCS: 36415; 71045; 71275; 76700; 80053; 82728; 83036; 83605; 83615; 83735; 83880; 84145; 85025; 85379; 85610; 85730; 86140; 87040; 87635; 93005; 94640; 96360; 99285

== ENCOUNTER 2020-02-27 19:30 | Observation (INO) | payer MEDICARE, OTHER ==
--- NOTE | 2020-02-27 19:54 | ED ---
General Adult HPI - General Chief complaint: Shortness of Breath Stated complaint: SOB Time Seen by Provider: 02/27/20 19:39 Source: patient, EMS Mode of arrival: EMS Limitations: altered mental status - History of Present Illness Initial comments: Dictation was produced using utoopia dictation software. please excuse any grammatical, word or spelling errors. This patient was cared for during a federal and state declared state of emergency secondary to Covid 19 Chief Complaint: 74-year-old male sent from [facility] in the leg for concerns of pneumonia History of Present Illness: 74-year-old male who was sent in by Dr. Baer from [facility]. According to Dr. Baer patient has been having symptoms of pneumonia. He allegedly received an x-ray yesterday that showed infiltration to the right lung fernández. Today patient was found to be more lethargic. Patient is a poor historian. Chart review shows that patient is full code. Unable to obtain review of systems secondary to mental status PHYSICAL EXAM: General Impression: Alert, minimally verbal, not in acute distress, lethargic HEENT: Normocephalic atraumatic, extra-ocular movements intact, pupils equal and reactive to light bilaterally, mucous membranes moist. Cardiovascular: Heart regular rate and rhythm Chest: Able to complete full sentences, no retractions, no tachypnea Abdomen: abdomen soft, non-tender, non-distended, no organomegaly Musculoskeletal: Pulses present and equal in all extremities, no peripheral edema Motor: no focal deficits noted Neurological: CN II-XII grossly intact, no focal motor or sensory deficits noted Skin: Intact with no visualized rashes Psych: Normal affect and mood ED course: 74-year-old male presents with concerns of worsening pneumonia. Signs upon arrival are within acceptable limits. Chart review was performed. Patient was last admitted and discharged from our facility November 2019. Patient had a time was admitted to the hospital for acute pneumonitis, aspiration pneumonia, advanced dementia Laboratory evaluation obtained. CBC is unremarkable. Coag panel is negative. Metabolic panel is negative. Urinalysis is negative. Patient does have elevated CRP with the level of 57.0. X-ray performed at her facility does not show any acute processes. Brain CT is negative. Case was discussed Dr. Baer who reports that she is concerned about chemical pneumonitis from her images th at were done at [facility] in the leg. She requested patient be admitted with pulmonology consult. EKG interpretation: Ventricular rate 90, sinus rhythm,. 150, QRS 82, QTc 457. No LA prolongation, no QTC prolongation, no ST or T-wave changes noted. EKG compared to 03/20/2020 showing no changes. Overall, this EKG is unremarkable - Related Data Home Medications Medication Instructions Recorded Confirmed Budesonide/Formoterol Fumarate 2 puff INHALATION RT-BID@0900,209901/03/17 02/27/20 [Symbicort 160-4.5 Mcg Inhaler] Docusate [Colace] 100 mg PO DAILY@89901/03/17 02/27/20 Ocusoft Lid Scrub Pad 1 applic BOTH EYES HS@209901/03/17 02/27/20 Tamsulosin [Flomax] 0.4 mg PO HS@209901/03/17 02/27/20 Albuterol Sulfate [Proventil Hfa] 1 puff INHALATION RT-QID PRN 12/07/19 02/27/20 Cholecalciferol [Vitamin D3 (25 2,000 unit PO DAILY@89912/07/19 02/27/20 Mcg = 1000 Iu)] Ensure Clear 1 can PO AC-TID 12/07/19 02/27/20 Furosemide [Lasix] 20 mg PO DAILY@59912/07/19 02/27/20 Pantoprazole [Protonix] 40 mg PO DAILY@59912/07/19 02/27/20 Sertraline HCl [Zoloft] 25 mg PO DAILY@89912/07/19 02/27/20 Potassium Chloride ER [K-Dur 10] 10 meq PO DAILY@89902/27/20 02/27/20 Allergies Allergy/AdvReac Type Severity Reaction Status Date / Time No Known Allergies Allergy Verified 02/27/20 20:31 Review of Systems ROS Statement: Those systems with pertinent positive or pertinent negative responses have been documented in the HPI. ROS Other: All systems not noted in ROS Statement are negative. Past Medical History Past Medical History: Heart Failure, COPD, Dementia, GERD/Reflux, Hypertension, Osteoarthritis (OA), Prostate Disorder, Vascular Disorder History of Any Multi-Drug Resistant Organisms: None Reported Past Surgical History: Unable to Obtain Additional Past Surgical History / Comment(s): Endovascular stent graft for aortic aneurysm. Past Psychological History: Depression Smoking Status: Current every day smoker Past Alcohol Use History: None Reported Past Drug Use History: None Reported - Past Family History Mother Family Medical History: Myocardial Infarction ([place]) (Mother in her 80s from myocardial infarction.) Father Family Medical History: Dementia (Father had dementia in his late 80s.) Sister(s) Family Medical History: Cancer (Patient had 3 sister 2 of them from some sort of cancer.) Son(s) Family Medical History: No Reported History (Patient has 2 sons no major medical problems) General Exam Limitations: altered mental status Course Vital Signs 02/27/20 02/27/20 02/27/20 19:32 20:10 21:15 Temperature 99 F 97.9 F Pulse Rate 90 85 Respiratory 18 18 18 Rate Blood Pressure 151/101 137/92 O2 Sat by Pulse 100 96 Oximetry Medical Decision Making - Lab Data Result diagrams: 02/27/20 20:13 02/27/20 20:13 Lab Results 02/27/20 02/27/20 02/27/20 Range/Units 20:04 20:13 20:13 WBC 7.7 (3.8-10.6) k/uL RBC 4.60 (4.30-5.90) m/uL Hgb 11.5 L (13.0-17.5) gm/dL Hct 38.2 L (39.0-53.0) % MCV 83.0 (80.0-100.0) fL MCH 25.0 (25.0-35.0) pg MCHC 30.1 L (31.0-37.0) g/dL RDW 14.7 (11.5-15.5) % Plt Count 271 (150-450) k/uL Neutrophils % 73 % Lymphocytes % 14 % Monocytes % 8 % Eosinophils % 3 % Basophils % 1 % Neutrophils # 5.6 (1.3-7.7) k/uL Lymphocytes # 1.1 (1.0-4.8) k/uL Monocytes # 0.6 (0-1.0) k/uL Eosinophils # 0.2 (0-0.7) k/uL Basophils # 0.1 (0-0.2) k/uL Hypochromasia Marked PT (9.0-12.0) sec INR (<1.2) APTT (22.0-30.0) sec Sodium 138 (137-145) mmol/L Potassium 3.8 (3.5-5.1) mmol/L Chloride 99 (98-107) mmol/L Carbon Dioxide 29 (22-30) mmol/L Anion Gap 10 mmol/L BUN 18 (9-20) mg/dL Creatinine 1.13 (0.66-1.25) mg/dL Est GFR (CKD-EPI)AfAm 73 (>60 ml/min/1.73 sqM) Est GFR (CKD-EPI)NonAf 64 (>60 ml/min/1.73 sqM) Glucose 100 H (74-99) mg/dL POC Glucose (mg/dL) 104 H (75-99) mg/dL POC Glu [employer] Operator ID Filiberto Hernandez Plasma Lactic Acid Michael (0.7-2.0) mmol/L Calcium 9.1 (8.4-10.2) mg/dL Magnesium 2.1 (1.6-2.3) mg/dL Total Bilirubin 0.4 (0.2-1.3) mg/dL AST 29 (17-59) U/L ALT 29 (4-49) U/L Alkaline Phosphatase 99 (38-126) U/L Ammonia (<30) umol/L Creatine Kinase 50 L (55-170) U/L Troponin I (0.000-0.034) ng/mL C-Reactive Protein 57.0 H (<10.0) mg/L Total Protein 7.3 (6.3-8.2) g/dL Albumin 3.8 (3.5-5.0) g/dL Urine Color Urine Appearance (Clear) Urine pH (5.0-8.0) Ur Specific [place] (1.001-1.035) Urine Protein (Negative) Urine Glucose (UA) (Negative) Urine Ketones (Negative) Urine Blood (Negative) Urine Nitrite (Negative) Urine Bilirubin (Negative) Urine Urobilinogen (<2.0) mg/dL Ur Leukocyte Esterase (Negative) 02/27/20 02/27/20 02/27/20 Range/Units 20:13 20:13 20:13 WBC (3.8-10.6) k/uL RBC (4.30-5.90) m/uL Hgb (13.0-17.5) gm/dL Hct (39.0-53.0) % MCV (80.0-100.0) fL MCH (25.0-35.0) pg MCHC (31.0-37.0) g/dL RDW (11.5-15.5) % Plt Count (150-450) k/uL Neutrophils % % Lymphocytes % % Monocytes % % Eosinophils % % Basophils % % Neutrophils # (1.3-7.7) k/uL Lymphocytes # (1.0-4.8) k/uL Monocytes # (0-1.0) k/uL Eosinophils # (0-0.7) k/uL Basophils # (0-0.2) k/uL Hypochromasia PT 10.0 (9.0-12.0) sec INR 1.0 (<1.2) APTT 20.6 L (22.0-30.0) sec Sodium (137-145) mmol/L Potassium (3.5-5.1) mmol/L Chloride (98-107) mmol/L Carbon Dioxide (22-30) mmol/L Anion Gap mmol/L BUN (9-20) mg/dL Creatinine (0.66-1.25) mg/dL Est GFR (CKD-EPI)AfAm (>60 ml/min/1.73 sqM) Est GFR (CKD-EPI)NonAf (>60 ml/min/1.73 sqM) Glucose (74-99) mg/dL POC Glucose (mg/dL) (75-99) mg/dL POC Glu Apple [employer] Operator ID Plasma Lactic Acid Michael 1.3 (0.7-2.0) mmol/L Calcium (8.4-10.2) mg/dL Magnesium (1.6-2.3) mg/dL Total Bilirubin (0.2-1.3) mg/dL AST (17-59) U/L ALT (4-49) U/L Alkaline Phosphatase (38-126) U/L Ammonia <9 (<30) umol/L Creatine Kinase (55-170) U/L Troponin I <0.012 (0.000-0.034) ng/mL C-Reactive Protein (<10.0) mg/L Total Protein (6.3-8.2) g/dL Albumin (3.5-5.0) g/dL Urine Color Urine Appearance (Clear) Urine pH (5.0-8.0) Ur Specific [place] (1.001-1.035) Urine Protein (Negative) Urine Glucose (UA) (Negative) Urine Ketones (Negative) Urine Blood (Negative) Urine Nitrite (Negative) Urine Bilirubin (Negative) Urine Urobilinogen (<2.0) mg/dL Ur Leukocyte Esterase (Negative) 02/27/20 Range/Units 22:10 WBC (3.8-10.6) k/uL RBC (4.30-5.90) m/uL Hgb (13.0-17.5) gm/dL Hct (39.0-53.0) % MCV (80.0-100.0) fL MCH (25.0-35.0) pg MCHC (31.0-37.0) g/dL RDW (11.5-15.5) % Plt Count (150-450) k/uL Neutrophils % % Lymphocytes % % Monocytes % % Eosinophils % % Basophils % % Neutrophils # (1.3-7.7) k/uL Lymphocytes # (1.0-4.8) k/uL Monocytes # (0-1.0) k/uL Eosinophils # (0-0.7) k/uL Basophils # (0-0.2) k/uL Hypochromasia PT (9.0-12.0) sec INR (<1.2) APTT (22.0-30.0) sec Sodium (137-145) mmol/L Potassium (3.5-5.1) mmol/L Chloride (98-107) mmol/L Carbon Dioxide (22-30) mmol/L Anion Gap mmol/L BUN (9-20) mg/dL Creatinine (0.66-1.25) mg/dL Est GFR (CKD-EPI)AfAm (>60 ml/min/1.73 sqM) Est GFR (CKD-EPI)NonAf (>60 ml/min/1.73 sqM) Glucose (74-99) mg/dL POC Glucose (mg/dL) (75-99) mg/dL POC Glu Apple [employer] Operator ID Plasma Lactic Acid Michael (0.7-2.0) mmol/L Calcium (8.4-10.2) mg/dL Magnesium (1.6-2.3) mg/dL Total Bilirubin (0.2-1.3) mg/dL AST (17-59) U/L ALT (4-49) U/L Alkaline Phosphatase (38-126) U/L Ammonia (<30) umol/L Creatine Kinase (55-170) U/L Troponin I (0.000-0.034) ng/mL C-Reactive Protein (<10.0) mg/L Total Protein (6.3-8.2) g/dL Albumin (3.5-5.0) g/dL Urine Color Yellow Urine Appearance Clear (Clear) Urine pH 5.0 (5.0-8.0) Ur Specific [place] 1.010 (1.001-1.035) Urine Protein Negative (Negative) Urine Glucose (UA) Negative (Negative) Urine Ketones Negative (Negative) Urine Blood Negative (Negative) Urine Nitrite Negative (Negative) Urine Bilirubin Negative (Negative) Urine Urobilinogen <2.0 (<2.0) mg/dL Ur Leukocyte Esterase Negative (Negative) Disposition Clinical Impression: Generalized weakness Disposition: ADMITTED IP TO THIS [facility] Condition: Fair Referrals: Ro Baer MD [Primary Care Provider] - 1-2 days Decision Time: 22:31
[2020-02-27 20:14] LABS: Glucose,Whole Blood 104 mg/dL (75-99)
[2020-02-27 20:26] LABS: Basophils # (A) 0.1 k/uL (0-0.2); Basophils % (A) 1 %; Eosinophils # (A) 0.2 k/uL (0-0.7); Eosinophils % (A) 3 %; HCT 38.2 % (39.0-53.0); HGB 11.5 gm/dL (13.0-17.5); Hypochromasia Marked; Lymphocytes # (A) 1.1 k/uL (1.0-4.8); Lymphocytes % (A) 14 %; MCHC 30.1 g/dL (31.0-37.0); Mean Platelet Volume 8.3; Monocytes # (A) 0.6 k/uL (0-1.0); Monocytes % (A) 8 %; Neutrophils # (A) 5.6 k/uL (1.3-7.7); Neutrophils % (A) 73 %; Platelet Count 271 k/uL (150-450); RDW 14.7 % (11.5-15.5); WBC 7.7 k/uL (3.8-10.6)
[2020-02-27 20:35] LABS: Lactic Acid, Venous 1.3 mmol/L (0.7-2.0)
[2020-02-27 20:39] LABS: Albumin 3.8 g/dL (3.5-5.0); Calcium 9.1 mg/dL (8.4-10.2); Magnesium 2.1 mg/dL (1.6-2.3); Potassium 3.8 mmol/L (3.5-5.1); Total Bilirubin 0.4 mg/dL (0.2-1.3); Total Protein 7.3 g/dL (6.3-8.2)
--- NOTE | 2020-02-27 20:55 | XR ---
EXAMINATION TYPE: XR chest 1V portable DATE OF EXAM: 02/27/2020 COMPARISON: Prior chest x-ray and chest CT dated 12/07/2019 HISTORY: Covid pneumonia and may TECHNIQUE: Single frontal view of the chest is obtained. FINDINGS: There is no focal air space opacity, pleural effusion, or pneumothorax seen. The cardiac silhouette size is stable. Aortic stent graft is in place. Emphysematous changes are present within t he lungs. Prominence of pulmonary artery suggests pulmonary artery hypertension. Aorta is aneurysmal. The osseous structures are intact. IMPRESSION: No acute process.
[2020-02-27 20:56] LABS: Partial Thromboplastin Time 20.6 sec (22.0-30.0)
--- NOTE | 2020-02-27 21:01 | CT ---
EXAMINATION TYPE: CT brain wo con DATE OF EXAM: 02/27/2020 COMPARISON: CT brain 01/03/2017 HISTORY: AMS. PT prior covid positive. SOB CT DLP: 1214.4 mGycm Automated exposure control for dose reduction was used. Helical imaging through the brain. FINDINGS: Cortical atrophy is again noted. White matter density is low as on prior exam, there is no hemorrhage or hydrocephalus. 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 The calvarium is intact. Paranasal sinuses and mastoid air cells are well aerat ed. IMPRESSION: STABLE EXAM. AGE-RELATED CHANGES OF ATROPHY AND CHRONIC SMALL VESSEL ISCHEMIA.
[2020-02-27 22:24] LABS: Appearance,Urine Clear (Clear); Bilirubin,Urine Negative (Negative); Blood,Urine Negative (Negative); Color,Urine Yellow; Glucose,Urine (UA) Negative (Negative); Ketones,Urine Negative (Negative); Leukocyte Esterase,Urine Negative (Negative); Nitrite,Urine Negative (Negative); Protein,Urine Negative (Negative); Urobilinogen,Urine <2.0 mg/dL (<2.0)
[2020-02-27] MEDS ORDERED: NALOXONE 0.4 MG/ML 1 ML VIAL IV PRN (22:32)
[2020-02-27] MEDS ORDERED: ACETAMINOPHEN TAB 325 MG TAB PO PRN (22:32)
[2020-02-27] MEDS: SODIUM CHLORIDE 0.9% 1,000 ML IV SCH (22:59)
[2020-02-28] MEDS ORDERED: ALBUTEROL NEBULIZED 2.5 MG/3 ML INHALATION PRN (08:50)
[2020-02-28] MEDS: CHOLECALCIFEROL 1,000 UNIT TAB PO SCH (10:57)
[2020-02-28] MEDS: DOCUSATE 100 MG CAP PO SCH (10:58)
[2020-02-28] MEDS: POTASSIUM CHLORIDE ER 10 MEQ TAB.ER.PRT PO SCH (10:58)
[2020-02-28] MEDS: SERTRALINE 25 MG TAB PO SCH (10:58)
[2020-02-28] MEDS: AZITHROMYCIN 250 MG TAB PO SCH (10:58)
--- NOTE | 2020-02-28 12:00 | P.HPIM ---
History of Present Illness H&P Date: 02/28/20 Chief Complaint: Pneumonia History of Present Illness This is a 74-year-old male patient of Dr. Baer with a past medical history of hypertension and hypertensive cardiovascular disease, hyperlipidemia, history of aortic aneurysm status post endovascular stent graft, left adrenal mass, vascular dementia, COPD, BPH. The patient has a long-term resident at [facility]. Apparently there was concern for aspiration and an x-ray done at the residential showed a right lung infiltrate and patient was started on Rocephin and Depo-Medrol. Patient apparently had vomiting 2 days prior to this x-ray. There is also concern that the patient was more lethargic than his baseline. Patient does have dementia with chronic confusion. Patient was sent to [facility] emergency center for evaluation. EKG was a sinus rhythm with PACs. Chest x-ray revealed no acute cardiopulmonary disease. CAT scan of the brain showed no acute findings with chronic small vessel ischemic changes. WBC 7.7, hemoglobin 11.5. Electrolytes and renal function normal. Blood sugar 104. CK 40, troponin negative. C-reactive protein 57. Pro-calcitonin 0.2. Urinalysis clear with nitrate and leukoesterase negative. Patient admitted to the [facility] floor and consult requested with Dr. Bermudez. Review of Systems Constitutional: No fever, no chills, no night sweats. No weight change. Reported weakness, fatigue or lethargy. EENT: No headache. No blurred vision or double vision, no loss of vision. No loss of Hearing, no ringing in the ears, no dizziness. No nasal drainage or congestion. No epistaxis. No sore throat. Lungs: No shortness of breath, cough, no sputum production. No wheezing. Cardiovascular: No chest pain, no lower extremity edema. No palpitations. No paroxysmal nocturnal dyspnea. No orthopnea. No lightheadedness or dizziness. No syncopal episodes. Abdominal: No abdominal pain. No nausea, vomiting. No diarrhea. No constipation. No bloody or tarry stools.. No loss of appetite. Genitourinary: No dysuria, increased frequency, urgency. No urinary retention. Musculoskeletal: No myalgias. No muscle weakness, no gait dysfunction, no frequent falls. No back pain. No neck pain. Integumentary: No wounds, no lesions. No rash or pruritus. No unusual bruising. Neurologic: No aphasia. No facial droop. Reported change in mentation. No head injury. No headache. No paralysis. No paresthesia. Psychiatric: No depression. No anxiety. No mood swings. Reported baseline confusion. Endocrine: No abnormal blood sugars. No weight change. Physical Examination Gen: This is a 74-year-old male. He is resting in bed and appears to be comfortable and in no acute distress. Oral mucous membranes are dry. HEENT: Head is atraumatic, normocephalic. Pupils equal, round. Sclerae is anicteric. NECK: Supple. No JVD. No lymphadenopathy. No thyromegaly. LUNGS: Diminished breath sounds to the right lower lobe otherwise clear to auscultation. No intercostal retractions. No accessory muscle usage. HEART: Regular rate and rhythm. No murmur. ABDOMEN: Soft. Bowel sounds are present. No masses. No tenderness. EXTREMITIES: No pedal edema. No calf tenderness. Dorsalis pedis palpable bilaterally. NEUROLOGICAL: Patient is awake, alert and oriented x3. Cranial nerves 2 through 12 are grossly intact. Assessment and Plan 1. Possible aspiration pneumonia. Patient started on ceftriaxone and azithromycin. Continue albuterol 4 times daily as needed, Symbicort twice daily, consult with Dr. Bermudez. 2. Metabolic encephalopathy secondary to pneumonia. Continue treatment as in #1 3. Hypertension hypertensive cardiovascular disease. Continue Lasix 20 mg daily. 4. Hyperlipidemia. Patient is not currently on statin. 5. History of aortic aneurysm status post endovascular stent graft. 6. Vascular dementia. 7. COPD without exacerbation. Continue albuterol and Symbicort. 8. Benign prostatic hypertrophy. Continue Flomax 0.4 mg daily. 9. GI prophylaxis. Protonix. 10. DVT prophylaxis. Heparin subcu. 11. COVID-19 infection not present. Patient will be admitted to the hospital for a minimum of 2 night stay. Discharge plan: Return to [facility] on Tuesday. Impression and plan of care have been directed as dictated by the signing physician. Karon Hubbard nurse practitioner acting as scribe for signing physician. Past Medical History Past Medical History: COPD, Dementia, GERD/Reflux, Hypertension, Osteoarthritis (OA), Prostate Disorder, Vascular Disorder History of Any Multi-Drug Resistant Organisms: None Reported Past Surgical History: Unable to Obtain Additional Past Surgical History / Comment(s): Endovascular stent graft for aortic aneurysm. Past Anesthesia/Blood Transfusion Reactions: No Reported Reaction Past Psychological History: Depression Smoking Status: Current every day smoker, Former smoker Past Alcohol Use History: None Reported Past Drug Use History: None Reported - Past Family History Mother Family Medical History: Myocardial Infarction ([place]) Additional Family Medical History / Comment(s): Mother in her 80s from myocardial infarction. Father Family Medical History: Dementia Additional Family Medical History / Comment(s): Father had dementia in his late 80s. Sister(s) Family Medical History: Cancer Additional Family Medical History / Comment(s): Patient had 3 sister 2 of them from some sort of cancer. Son(s) Family Medical History: No Reported History Additional Family Medical History / Comment(s): Patient has 2 sons no major medical problems. Medications and Allergies Home Medications Medication Instructions Recorded Confirmed Type Budesonide/Formoterol Fumarate 2 puff INHALATION RT-BID@899,209901/03/1702/26 History [Symbicort 160-4.5 Mcg Inhaler] Docusate [Colace] 100 mg PO DAILY@89901/03/17 02/27/20 History Ocusoft Lid Scrub Pad 1 applic BOTH EYES HS@209901/03/17 02/27/20 History Tamsulosin [Flomax] 0.4 mg PO HS@209901/03/17 02/27/20 History Albuterol Sulfate [Proventil Hfa] 1 puff INHALATION RT-QID PRN 12/07/19 02/27/20 History Cholecalciferol [Vitamin D3 (25 2,000 unit PO DAILY@89912/07/19 02/27/20 History Mcg = 1000 Iu)] Ensure Clear 1 can PO AC-TID 12/07/19 02/27/20 History Furosemide [Lasix] 20 mg PO DAILY@59912/07/19 02/27/20 History Pantoprazole [Protonix] 40 mg PO DAILY@59912/07/19 02/27/20 History Sertraline HCl [Zoloft] 25 mg PO DAILY@89912/07/19 02/27/20 History Potassium Chloride ER [K-Dur 10] 10 meq PO DAILY@89902/27/20 02/27/20 History Allergies Allergy/AdvReac Type Severity Reaction Status Date / Time No Known Allergies Allergy Verified 02/27/20 20:31 Physical Exam Vitals: Vital Signs Temp Pulse Pulse Resp BP BP Pulse Ox 02/28/20 08:05 98.9 F 86 16 136/92 02/28/20 04:00 18 02/28/20 01:21 98.2 F 87 20 141/99 99 02/28/20 00:05 88 20 02/27/20 23:45 98.5 F 88 20 139/87 96 02/27/20 22:51 99.3 F 84 18 143/94 96 02/27/20 21:15 97.9 F 85 18 137/92 96 02/27/20 20:10 18 02/27/20 19:32 99 F 90 18 151/101 100 Intake and Output 02/27/20 02/28/20 02/28/20 22:59 06:59 14:59 Other: Voiding Method Diaper Incontinent # Voids 0 Weight 84.912 kg Results CBC & Chem 7: 02/27/20 20:13 02/27/20 20:13 Labs: Abnormal Lab Results - Last 24 Hours (Table) 02/27/20 02/27/20 02/27/20 Range/Units 20:04 20:13 20:13 Hgb 11.5 L (13.0-17.5) gm/dL Hct 38.2 L (39.0-53.0) % MCHC 30.1 L (31.0-37.0) g/dL APTT (22.0-30.0) sec Glucose 100 H (74-99) mg/dL POC Glucose (mg/dL) 104 H (75-99) mg/dL Creatine Kinase 50 L (55-170) U/L C-Reactive Protein 57.0 H (<10.0) mg/L Procalcitonin (0.02-0.09) ng/mL 02/27/20 02/27/20 Range/Units 20:13 20:13 Hgb (13.0-17.5) gm/dL Hct (39.0-53.0) % MCHC (31.0-37.0) g/dL APTT 20.6 L (22.0-30.0) sec Glucose (74-99) mg/dL POC Glucose (mg/dL) (75-99) mg/dL Creatine Kinase (55-170) U/L C-Reactive Protein (<10.0) mg/L Procalcitonin 0.20 H (0.02-0.09) ng/mL Thrombosis Risk Factor Assmnt - DVT/VTE Prophylaxis DVT/VTE Prophylaxis: Pharmacologic Prophylaxis ordered - Choose All That Apply Any of the Below Risk Factors Present?: Yes Each Factor Represents 1 point: Obesity (BMI >25) Other Risk Factors: Yes Each Risk Factor Represents 3 Points: Age 75 years or older Thrombosis Risk Factor Assessment Total Risk Factor Score: 4 Thrombosis Risk Factor Assessment Level: Moderate Risk
[2020-02-28] MEDS ORDERED: NON FORMULARY DRUG (Ensure Clear 1 CAN) PO SCH (12:30)
[2020-02-28] MEDS: SYMBICORT 160-4.5 MCG INHALER INHALATION SCH ×2 (12:30→20:04)
--- NOTE | 2020-02-28 19:22 | P.CNPUL ---
History of Present Illness Consult date: 02/28/20 Reason for consult: dyspnea, cough, hypoxemia, pneumonia Chief complaint: Shortness of breath and cough History of present illness: this is a 74-year-old male who was seen evaluated examined, patient is overall a poor historian not much data can obtained can be obtained from the patient however did up most of obtained from the chart, patient does have a significant history of hypertension and hypertensive cardiovascular disease along with dyslipidemia patient also has a history of abdominal aortic aneurysm with end ovascular graft, patient has a history of left adrenal mass which is being monitored and observed, and Mrs. COPD, dementia exam is disease, patient is a resident of [facility], x-ray done at [facility] revealed right lower lobe infiltrate and she was suspected to have a aspiration pneumonia and admitted into the hospital for further evaluation patient does have history of emesis prior to admitted into the hospital about 48 hours ago, admitted chest x-ray in the hospital was negative for pneumonia, computed tomography scan of the head revealed chronic atrophic changes Review of Systems All systems: negative Past Medical History Past Medical History: COPD, Dementia, GERD/Reflux, Hypertension, Osteoarthritis (OA), Prostate Disorder, Vascular Disorder History of Any Multi-Drug Resistant Organisms: None Reported Past Surgical History: Unable to Obtain Additional Past Surgical History / Comment(s): Endovascular stent graft for aortic aneurysm. Past Anesthesia/Blood Transfusion Reactions: No Reported Reaction Past Psychological History: Depression Smoking Status: Current every day smoker, Former smoker Past Alcohol Use History: None Reported Past Drug Use History: None Reported - Past Family History Mother Family Medical History: Myocardial Infarction ([place]) Additional Family Medical History / Comment(s): Mother in her 80s from myocardial infarction. Father Family Medical History: Dementia Additional Family Medical History / Comment(s): Father had dementia in his late 80s. Sister(s) Family Medical History: Cancer Additional Family Medical History / Comment(s): Patient had 3 sister 2 of them from some sort of cancer. Son(s) Family Medical History: No Reported History Additional Family Medical History / Comment(s): Patient has 2 sons no major medical problems. Medications and Allergies Home Medications Medication Instructions Recorded Confirmed Type Budesonide/Formoterol Fumarate 2 puff INHALATION RT-BID@0900,2100 01/03/17 02/27/20 History [Symbicort 160-4.5 Mcg Inhaler] Docusate [Colace] 100 mg PO DAILY@89901/03/17 02/27/20 History Ocusoft Lid Scrub Pad 1 applic BOTH EYES HS@209901/03/17 02/27/20 History Tamsulosin [Flomax] 0.4 mg PO HS@209901/03/17 02/27/20 History Albuterol Sulfate [Proventil Hfa] 1 puff INHALATION RT-QID PRN 12/07/19 02/27/20 History Cholecalciferol [Vitamin D3 (25 2,000 unit PO DAILY@89912/07/19 02/27/20 History Mcg = 1000 Iu)] Ensure Clear 1 can PO AC-TID 12/07/19 02/27/20 History Furosemide [Lasix] 20 mg PO DAILY@59912/07/19 02/27/20 History Pantoprazole [Protonix] 40 mg PO DAILY@59912/07/19 02/27/20 History Sertraline HCl [Zoloft] 25 mg PO DAILY@89912/07/19 02/27/20 History Potassium Chloride ER [K-Dur 10] 10 meq PO DAILY@89902/27/20 02/27/20 History Allergies Allergy/AdvReac Type Severity Reaction Status Date / Time No Known Allergies Allergy Verified 02/27/20 20:31 Physical Exam Vitals: Vital Signs Temp Pulse Pulse Resp BP BP Pulse Ox 02/28/20 15:27 97.8 F 66 16 120/72 94 L 02/28/20 08:05 98.9 F 86 16 136/92 02/28/20 04:00 18 02/28/20 01:21 98.2 F 87 20 141/99 99 02/28/20 00:05 88 20 02/27/20 23:45 98.5 F 88 20 139/87 96 02/27/20 22:51 99.3 F 84 18 143/94 96 02/27/20 21:15 97.9 F 85 18 137/92 96 02/27/20 20:10 18 02/27/20 19:32 99 F 90 18 151/101 100 Intake and Output 02/28/20 02/28/20 02/28/20 06:59 14:59 22:59 Intake Total 160 Balance 160 Intake: IV 160 Sodium Chloride 0.9% 1, 160 000 ml @ 20 mls/hr IV . Q24H [facility] Rx#:[id number] Other: Voiding Method Diaper Incontinent # Voids 0 1 Gen: This is a 74-year-old male. He is resting in bed and appears to be comfortable and in no acute distress. Oral mucous membranes are dry. HEENT: Head is atraumatic, normocephalic. Pupils equal, round. Sclerae is anicteric. NECK: Supple. No JVD. No lymphadenopathy. No thyromegaly. LUNGS: Diminished breath sounds to the right lower lobe otherwise clear to auscultation. No intercostal retractions. No accessory muscle usage. HEART: Regular rate and rhythm. No murmur. ABDOMEN: Soft. Bowel sounds are present. No masses. No tenderness. EXTREMITIES: No pedal edema. No calf tenderness. Dorsalis pedis palpable bilaterally. NEUROLOGICAL: Patient is awake, alert and oriented x3. Cranial nerves 2 through 12 are grossly intact. Results - Laboratory Findings CBC and BMP: 02/27/20 20:13 02/27/20 20:13 PT/INR, D-dimer PT 10.0 sec (9.0-12.0) 02/27/20 20:13 INR 1.0 (<1.2) 02/27/20 20:13 Abnormal lab findings: Abnormal Labs 02/27/20 02/27/20 02/27/20 20:04 20:13 20:13 Hgb 11.5 L Hct 38.2 L MCHC 30.1 L APTT Glucose 100 H POC Glucose (mg/dL) 104 H Creatine Kinase 50 L C-Reactive Protein 57.0 H Procalcitonin 02/27/20 02/27/20 20:13 20:13 Hgb Hct MCHC APTT 20.6 L Glucose POC Glucose (mg/dL) Creatine Kinase C-Reactive Protein Procalcitonin 0.20 H - Diagnostic Findings Chest x-ray: report reviewed, image reviewed (finding as noted above) Assessment and Plan Assessment: episode of aspiration and chemical pneumonitis, no discrete infiltrate are present would recommend to DC antibiotics after finishing 5-7 day of therapy Severe COPD continue bronchodilator Altered mental status encephalopathy likely multifactorial process will plan to continue supportive care follow clinical course closely Hypertension hypertensive cardiovascular disease Dyslipidemia Abdominal aortic aneurysm status post a endovascular stent graft Dementia With advanced disease Plan: plan as noted above Time with Patient: Greater than 30
[2020-02-28] MEDS: HEPARIN SODIUM,PORCINE 5,000 UNIT/ML 1 ML VIAL SQ SCH (20:23)
[2020-02-28] MEDS ORDERED: TAMSULOSIN 0.4 MG CAP.ER.24H PO SCH (21:00)
[2020-02-28] MEDS: SODIUM CHLORIDE 0.9% 1,000 ML IV SCH (23:30)
[2020-02-29] MEDS ORDERED: FUROSEMIDE 20 MG TAB PO SCH (06:00)
[2020-02-29] MEDS ORDERED: PANTOPRAZOLE 40 MG TABLET PO SCH (06:00)
[2020-02-29 07:24] VITALS: BP 134/82; PULSE 64; TEMP 97.7
[2020-02-29] MEDS: CHOLECALCIFEROL 1,000 UNIT TAB PO SCH (09:20)
[2020-02-29] MEDS: DOCUSATE 100 MG CAP PO SCH (09:21)
[2020-02-29] MEDS: AZITHROMYCIN 250 MG TAB PO SCH (09:22)
[2020-02-29] MEDS: POTASSIUM CHLORIDE ER 10 MEQ TAB.ER.PRT PO SCH (09:22)
[2020-02-29] MEDS: HEPARIN SODIUM,PORCINE 5,000 UNIT/ML 1 ML VIAL SQ SCH (09:23)
[2020-02-29] MEDS: SERTRALINE 25 MG TAB PO SCH (09:23)
[2020-02-29 09:26] VITALS: RESP 18
[2020-02-29] MEDS: SYMBICORT 160-4.5 MCG INHALER INHALATION SCH (09:37)
[2020-02-29 10:22] LABS: HGB 10.1 gm/dL (13.0-17.5); Hypochromasia Marked; MCH 25.3 pg (25.0-35.0); MCHC 29.8 g/dL (31.0-37.0); MCV 84.8 fL (80.0-100.0); Mean Platelet Volume 7.2; Platelet Count 250 k/uL (150-450); RBC 4.01 m/uL (4.30-5.90); RDW 14.8 % (11.5-15.5); WBC 7.6 k/uL (3.8-10.6)
--- NOTE | 2020-02-29 11:11 | P.DS ---
Providers Date of admission: 02/27/20 22:32 Expected date of discharge: 02/29/20 Attending physician: Ro Baer Consults: 02/27/20 22:33 Consult Physician Routine Consulting Provider: Romie Bermudez Consult Reason/Comments: chemical pneumonitis? Do you want consulting provider notified?: Yes Primary care physician: Ro Baer [facility] Course: History of Present Illness This is a 74-year-old male patient of Dr. Baer with a past medical history of hypertension and hypertensive cardiovascular disease, hyperlipidemia, history of aortic aneurysm status post endovascular stent graft, left adrenal mass, vascular dementia, COPD, BPH. The patient has a long-term resident at [facility]. Apparently there was concern for aspiration and an x-ray done at the intermediate showed a right lung infiltrate and patient was started on Rocephin and Depo-Medrol. Patient apparently had vomiting 2 days prior to this x-ray. There is also concern that the patient was more lethargic than his baseline. Patient does have dementia with chronic confusion. Patient was sent to [facility] for evaluation. EKG was a sinus rhythm with PACs. Chest x-ray revealed no acute cardiopulmonary disease. CAT scan of the brain showed no acute findings with chronic small vessel ischemic changes. WBC 7.7, hemoglobin 11.5. Electrolytes and renal function normal. Blood sugar 104. CK 40, troponin negative. C-reactive protein 57. Pro-calcitonin 0.2. Urinalysis clear with nitrate and leukoesterase negative. Patient admitted to the [facility] floor and consult requested with Dr. Bermudez. 02/28: Patient is seen today and follow-up. Vision is denying any shortness of breath, chest pain. He continues to have crackles in the right lung. A chest x-ray has been ordered which reveals no acute cardiopulmonary process. Patient has been seen by Dr. Bermudez. He recommends of 5-7 day course of antibiotics. Repeat blood work reveals WBC 7.6, hemoglobin 10.1, platelet count 250. Patient will be discharged back to [facility] today in stable condition. Assessment and Plan 1. Possible aspiration pneumonia. 2. Metabolic encephalopathy secondary to pneumonia. 3. Hypertension hypertensive cardiovascular disease. 4. Hyperlipidemia. 5. History of aortic aneurysm status post endovascular stent graft. 6. Vascular dementia. 7. COPD without exacerbation. 8. Benign prostatic hypertrophy. 9. COVID-19 infection not present. Discharge plan: Return to [facility] on Tuesday. Impression and plan of care have been directed as dictated by the signing physician. Karon Hubbard nurse practitioner acting as scribe for signing physician. Patient Condition at Discharge: Good Plan - Discharge Summary Discharge Rx Participant: No New Discharge Prescriptions: New Levofloxacin [Levaquin] 500 mg PO DAILY 5 Days #5 tab Continue Budesonide/Formoterol Fumarate [Symbicort 160-4.5 Mcg Inhaler] 2 puff INHALATION RT-BID@0900,2099 Docusate [Colace] 100 mg PO DAILY@09 Ocusoft Lid Scrub Pad 1 applic BOTH EYES HS@2099 Tamsulosin [Flomax] 0.4 mg PO HS@2099 Albuterol Sulfate [Proventil Hfa] 1 puff INHALATION RT-QID PRN PRN Reason: Wheezing Ensure Clear 1 can PO AC-TID Sertraline HCl [Zoloft] 25 mg PO DAILY@0900 Cholecalciferol [Vitamin D3 (25 Mcg = 1000 Iu)] 2,000 unit PO DAILY@0900 Pantoprazole [Protonix] 40 mg PO DAILY@0600 Furosemide [Lasix] 20 mg PO DAILY@06 Potassium Chloride ER [K-Dur 10] 10 meq PO DAILY@0900 Discharge Medication List Budesonide/Formoterol Fumarate [Symbicort 160-4.5 Mcg Inhaler] 2 puff INHALATION RT-BID@0900,209901/03/17 [History] Docusate [Colace] 100 mg PO DAILY@0900 01/03/17 [History] Ocusoft Lid Scrub Pad 1 applic BOTH EYES HS@209901/03/17 [History] Tamsulosin [Flomax] 0.4 mg PO HS@209901/03/17 [History] Albuterol Sulfate [Proventil Hfa] 1 puff INHALATION RT-QID PRN 12/07/19 [History] Cholecalciferol [Vitamin D3 (25 Mcg = 1000 Iu)] 2,000 unit PO DAILY@0900 12/07/19 [History] Ensure Clear 1 can PO AC-TID 12/07/19 [History] Furosemide [Lasix] 20 mg PO DAILY@0612/07/19 [History] Pantoprazole [Protonix] 40 mg PO DAILY@0600 05/08/20 [History] Sertraline HCl [Zoloft] 25 mg PO DAILY@89912/07/19 [History] Potassium Chloride ER [K-Dur 10] 10 meq PO DAILY@0902/27/20 [History] Levofloxacin [Levaquin] 500 mg PO DAILY 5 Days #5 tab 02/29/20 [Rx] Follow up Appointment(s)/Referral(s): Ro Baer MD [Primary Care Provider] - 1 Week (at [facility]) Discharge Disposition: TRANSFER TO SNF/ECF
--- NOTE | 2020-02-29 11:35 | XR ---
EXAMINATION TYPE: XR chest 1V portable DATE OF EXAM: 02/29/2020 CLINICAL HISTORY: Aspiration TECHNIQUE: Portable frontal view of the chest obtained COMPARISON: Chest radiograph 02/27/2020 FINDINGS: Aortic stent graft. The cardiomediastinal silhouette is unchanged. Unchanged prominence of the pulmonary arteries. There is no focal air space opacity, pleural effusion, or pneumothorax seen. The osseous structures are intact. Degenerative changes of the left shoulder. IMPRESSION: No acute cardiopulmonary process.
== END 2020-02-29 14:10 ==
LOC: EC 19:30 → 4SSUR 22:32
PROVIDERS: ADMIT Family Medicine; ATTEND Family Medicine
DX: G93.41 Metabolic encephalopathy (principal); J44.0 Chronic obstructive pulmonary disease with (acute) lower respiratory infection; J18.9 Pneumonia, unspecified organism; I11.0 Hypertensive heart disease with heart failure; I50.9 Heart failure, unspecified; F01.50 Vascular dementia, unspecified severity, without behavioral disturbance, psychotic disturbance, mood disturbance, and anxiety; R79.82 Elevated C-reactive protein (CRP); E78.5 Hyperlipidemia, unspecified; N40.0 Benign prostatic hyperplasia without lower urinary tract symptoms; E27.9 Disorder of adrenal gland, unspecified; R11.10 Vomiting, unspecified; K21.9 Gastro-esophageal reflux disease without esophagitis; M19.90 Unspecified osteoarthritis, unspecified site; F32.9 Major depressive disorder, single episode, unspecified; R09.02 Hypoxemia; F17.200 Nicotine dependence, unspecified, uncomplicated; E66.9 Obesity, unspecified; Z68.25 Body mass index [BMI] 25.0-25.9, adult; Z79.899 Other long term (current) drug therapy; Z79.51 Long term (current) use of inhaled steroids; Z87.01 Personal history of pneumonia (recurrent); Z86.79 Personal history of other diseases of the circulatory system; Z95.828 Presence of other vascular implants and grafts; Z82.49 Family history of ischemic heart disease and other diseases of the circulatory system; Z81.8 Family history of other mental and behavioral disorders; Z80.9 Family history of malignant neoplasm, unspecified; Z20.828 Contact with and (suspected) exposure to other viral communicable diseases
CPT/HCPCS: 96365; 96366; 96372 ×2; 51701; 99285; 36415; 94640 ×3; 93005; 97162; 97166; 80053; 82140; 82550; 83605; 83735; 84484; 85025; 85027; 85610; 85730; 86140; 81003; 87040; 84145; 71045 ×2; 70450; G0378 ×3; U0003; J1644 ×2; J0696 ×2

== ENCOUNTER 2020-06-08 23:08 | Inpatient (IN) | payer MEDICARE, OTHER ==
[2020-06-08] MEDS ORDERED: ACETAMINOPHEN TAB 500 MG TAB PO STA (23:19)
[2020-06-08] MEDS ORDERED: SODIUM CHLORIDE 0.9% 500 ML 500 ML IV SCH (23:30)
--- NOTE | 2020-06-08 23:44 | XR ---
EXAMINATION TYPE: XR chest 1V portable DATE OF EXAM: 06/08/2020 COMPARISON: 02/29/2020 HISTORY: Fever TECHNIQUE: Single view There is no heart failure nor confluent pneumonic infiltrate. Costophrenic angles are clear. There i s stent in the thoracic aorta. There are chest leads. IMPRESSION: No active cardiopulmonary disease. No change.
[2020-06-09 00:19] LABS: Anisocytosis Slight; Basophils # (A) 0.2 k/uL (0-0.2); Basophils % (A) 1 %; Eosinophils # (A) 0.2 k/uL (0-0.7); Eosinophils % (A) 1 %; HCT 34.8 % (39.0-53.0); HGB 10.8 gm/dL (13.0-17.5); Hypochromasia Moderate; Lymphocytes # (A) 1.2 k/uL (1.0-4.8); Lymphocytes % (A) 9 %; MCH 25.7 pg (25.0-35.0); MCHC 30.9 g/dL (31.0-37.0); MCV 83.3 fL (80.0-100.0); Mean Platelet Volume 6.7; Monocytes # (A) 0.6 k/uL (0-1.0); Monocytes % (A) 4 %; Neutrophils # (A) 10.7 k/uL (1.3-7.7); Neutrophils % (A) 83 %; Platelet Count 304 k/uL (150-450); RBC 4.18 m/uL (4.30-5.90); RDW 16.8 % (11.5-15.5); WBC 12.9 k/uL (3.8-10.6)
--- NOTE | 2020-06-09 00:28 | ED ---
Fever HPI - General Chief Complaint: Fever Stated Complaint: infection Time Seen by Provider: 06/08/20 23:19 Source: EMS Mode of arrival: EMS - History of Present Illness Initial Comments: Marvin is a 75-year-old male with advanced dementia who is brought to the ER today via EMS from [facility] for evaluation of possible sepsis. Apparently the patient has had a fever appears to have increased work of breathing. Further history is limited by the patient's advanced dementia. - Related Data Home Medications Medication Instructions Recorded Confirmed Budesonide/Formoterol Fumarate 2 puff INHALATION RT-BID@0900,209901/03/17 02/27/20 [Symbicort 160-4.5 Mcg Inhaler] Docusate [Colace] 100 mg PO DAILY@89901/03/17 02/27/20 Ocusoft Lid Scrub Pad 1 applic BOTH EYES HS@209901/03/17 02/27/20 Tamsulosin [Flomax] 0.4 mg PO HS@209901/03/17 02/27/20 Albuterol Sulfate [Proventil Hfa] 1 puff INHALATION RT-QID PRN 12/07/19 02/27/20 Cholecalciferol [Vitamin D3 (25 2,000 unit PO DAILY@89912/07/19 02/27/20 Mcg = 1000 Iu)] Ensure Clear 1 can PO AC-TID 12/07/19 02/27/20 Furosemide [Lasix] 20 mg PO DAILY@59912/07/19 02/27/20 Pantoprazole [Protonix] 40 mg PO DAILY@59912/07/19 02/27/20 Sertraline HCl [Zoloft] 25 mg PO DAILY@89912/07/19 02/27/20 Potassium Chloride ER [K-Dur 10] 10 meq PO DAILY@89902/27/20 02/27/20 Previous Rx's Medication Instructions Recorded Levofloxacin [Levaquin] 500 mg PO DAILY 5 Days #5 tab 02/29/20 Allergies Allergy/AdvReac Type Severity Reaction Status Date / Time No Known Allergies Allergy Verified 02/27/20 20:31 Review of Systems ROS Statement: Those systems with pertinent positive or pertinent negative responses have been documented in the HPI. ROS Other: All systems not noted in ROS Statement are negative. Limitations: ROS unobtainable due to patients medical condition Past Medical History Past Medical History: COPD, Dementia, GERD/Reflux, Hypertension, Osteoarthritis (OA), Prostate Disorder, Vascular Disorder History of Any Multi-Drug Resistant Organisms: None Reported Past Surgical History: Unable to Obtain Additional Past Surgical History / Comment(s): Endovascular stent graft for aor tic aneurysm. Past Anesthesia/Blood Transfusion Reactions: No Reported Reaction Past Psychological History: Depression Smoking Status: Current every day smoker, Former smoker Past Alcohol Use History: None Reported Past Drug Use History: None Reported - Past Family History Mother Family Medical History: Myocardial Infarction ([place]) Additional Family Medical History / Comment(s): Mother in her 80s from myocardial infarction. Father Family Medical History: Dementia Additional Family Medical History / Comment(s): Father had dementia in his late 80s. Sister(s) Family Medical History: Cancer Additional Family Medical History / Comment(s): Patient had 3 sister 2 of them from some sort of cancer. Son(s) Family Medical History: No Reported History Additional Family Medical History / Comment(s): Patient has 2 sons no major medical problems. General Exam - General Exam Comments Initial Comments: Physical Exam GENERAL: Acutely ill appearing, febrile, sweating HENT: Normocephalic, Atraumatic. EYES: PERRL, EOMI PULMONARY: Tachypnea CARDIOVASCULAR: Tachycardia, regular Warm and well perfused extremities ABDOMEN: Soft and nontender with normal bowel sounds. SKIN: Warm, diaphoretic : Deferred NEUROLOGIC: Oriented to self MUSCULOSKELETAL: Normal extremities with adequate strength and full range of motion. No lower extremity swelling or edema. No calf tenderness. PSYCHIATRIC: Advanced dementia Course Vital Signs 06/08/20 06/09/20 06/09/20 23:15 00:06 00:30 Temperature 99.5 F Pulse Rate 116 H 115 H 105 H Respiratory 28 H 28 H 26 H Rate Blood Pressure 132/85 124/83 111/75 O2 Sat by Pulse 97 98 Oximetry 06/09/20 06/09/20 01:00 01:55 Temperature Pulse Rate 104 H 101 H Respiratory 25 H 25 H Rate Blood Pressure 146/83 134/87 O2 Sat by Pulse 98 99 Oximetry Medical Decision Making - Medical Decision Making she was seen and evaluated Upon arrival patient appears to be septic as he is febrile to Tachycardic Full sepsis and COVID workup were initiated considering that the patient's coming from a [facility] with known exposure to COVID Patient's rapid COVID was negative however I suspect this is a false negative given his labs and findings Patient does have urinary tract infection will be given Rocephin Patient will be admitted to Dr. Maynard for sepsis secondary to urinary tract infection with concern for possible COVID 19 - Lab Data Result diagrams: 06/08/20 00:09 06/08/20 00:09 Lab Results 06/08/20 06/08/20 06/08/20 Range/Units 00:09 00:09 00:09 WBC 12.9 H (3.8-10.6) k/uL RBC 4.18 L (4.30-5.90) m/uL Hgb 10.8 L (13.0-17.5) gm/dL Hct 34.8 L (39.0-53.0) % MCV 83.3 (80.0-100.0) fL MCH 25.7 (25.0-35.0) pg MCHC 30.9 L (31.0-37.0) g/dL RDW 16.8 H (11.5-15.5) % Plt Count 304 (150-450) k/uL Neutrophils % 83 % Lymphocytes % 9 % Monocytes % 4 % Eosinophils % 1 % Basophils % 1 % Neutrophils # 10.7 H (1.3-7.7) k/uL Lymphocytes # 1.2 (1.0-4.8) k/uL Monocytes # 0.6 (0-1.0) k/uL Eosinophils # 0.2 (0-0.7) k/uL Basophils # 0.2 (0-0.2) k/uL Hypochromasia Moderate Anisocytosis Slight PT 10.4 (9.0-12.0) sec INR 1.0 (<1.2) APTT 22.7 (22.0-30.0) sec D-Dimer 11.98 H (<0.60) mg/L FEU Sodium 148 H (137-145) mmol/L Potassium 3.8 (3.5-5.1) mmol/L Chloride 113 H (98-107) mmol/L Carbon Dioxide 29 (22-30) mmol/L Anion Gap 6 mmol/L BUN 32 H (9-20) mg/dL Creatinine 1.46 H (0.66-1.25) mg/dL Est GFR (CKD-EPI)AfAm 53 (>60 ml/min/1.73 sqM) Est GFR (CKD-EPI)NonAf 46 (>60 ml/min/1.73 sqM) Glucose 115 H (74-99) mg/dL Plasma Lactic Acid Michael (0.7-2.0) mmol/L Calcium 8.7 (8.4-10.2) mg/dL Magnesium 2.0 (1.6-2.3) mg/dL Total Bilirubin 0.3 (0.2-1.3) mg/dL AST 43 (17-59) U/L ALT 32 (4-49) U/L Alkaline Phosphatase 90 (38-126) U/L Lactate Dehydrogenase 605 (313-618) U/L C-Reactive Protein 73.5 H (<10.0) mg/L Total Protein 6.2 L (6.3-8.2) g/dL Albumin 2.7 L (3.5-5.0) g/dL Urine Color Urine Appearance (Clear) Urine pH (5.0-8.0) Ur Specific Melville (1.001-1.035) Urine Protein (Negative) Urine Glucose (UA) (Negative) Urine Ketones (Negative) Urine Blood (Negative) Urine Nitrite (Negative) Urine Bilirubin (Negative) Urine Urobilinogen (<2.0) mg/dL Ur Leukocyte Esterase (Negative) Urine RBC (0-5) /hpf Urine WBC (0-5) /hpf Ur Squamous Epith Cells (0-4) /hpf Amorphous Sediment (None) /hpf Hyaline Casts (0-2) /lpf Urine Mucus (None) /hpf Coronavirus (PCR) (Not Detectd) Influenza Type A RNA (Not Detectd) Influenza Type B (PCR) (Not Detectd) 06/08/20 06/08/20 06/08/20 Range/Units 00:09 00:09 00:31 WBC (3.8-10.6) k/uL RBC (4.30-5.90) m/uL Hgb (13.0-17.5) gm/dL Hct (39.0-53.0) % MCV (80.0-100.0) fL MCH (25.0-35.0) pg MCHC (31.0-37.0) g/dL RDW (11.5-15.5) % Plt Count (150-450) k/uL Neutrophils % % Lymphocytes % % Monocytes % % Eosinophils % % Basophils % % Neutrophils # (1.3-7.7) k/uL Lymphocytes # (1.0-4.8) k/uL Monocytes # (0-1.0) k/uL Eosinophils # (0-0.7) k/uL Basophils # (0-0.2) k/uL Hypochromasia Anisocytosis PT (9.0-12.0) sec INR (<1.2) APTT (22.0-30.0) sec D-Dimer (<0.60) mg/L FEU Sodium (137-145) mmol/L Potassium (3.5-5.1) mmol/L Chloride (98-107) mmol/L Carbon Dioxide (22-30) mmol/L Anion Gap mmol/L BUN (9-20) mg/dL Creatinine (0.66-1.25) mg/dL Est GFR (CKD-EPI)AfAm (>60 ml/min/1.73 sqM) Est GFR (CKD-EPI)NonAf (>60 ml/min/1.73 sqM) Glucose (74-99) mg/dL Plasma Lactic Acid Michael 1.5 (0.7-2.0) mmol/L Calcium (8.4-10.2) mg/dL Magnesium (1.6-2.3) mg/dL Total Bilirubin (0.2-1.3) mg/dL AST (17-59) U/L ALT (4-49) U/L Alkaline Phosphatase (38-126) U/L Lactate Dehydrogenase (313-618) U/L C-Reactive Protein (<10.0) mg/L Total Protein (6.3-8.2) g/dL Albumin (3.5-5.0) g/dL Urine Color Light Red Urine Appearance Turbid (Clear) Urine pH 5.0 (5.0-8.0) Ur Specific Melville 1.017 (1.001-1.035) Urine Protein Trace H (Negative) Urine Glucose (UA) Negative (Negative) Urine Ketones Negative (Negative) Urine Blood Negative (Negative) Urine Nitrite Negative (Negative) Urine Bilirubin Negative (Negative) Urine Urobilinogen <2.0 (<2.0) mg/dL Ur Leukocyte Esterase Small H (Negative) Urine RBC 134 H (0-5) /hpf Urine WBC 148 H (0-5) /hpf Ur Squamous Epith Cells 5 H (0-4) /hpf Amorphous Sediment Rare H (None) /hpf Hyaline Casts 1786 H (0-2) /lpf Urine Mucus Many H (None) /hpf Coronavirus (PCR) (Not Detectd) Influenza Type A RNA Not Detected (Not Detectd) Influenza Type B (PCR) Not Detected (Not Detectd) 06/08/20 Range/Units 23:30 WBC (3.8-10.6) k/uL RBC (4.30-5.90) m/uL Hgb (13.0-17.5) gm/dL Hct (39.0-53.0) % MCV (80.0-100.0) fL MCH (25.0-35.0) pg MCHC (31.0-37.0) g/dL RDW (11.5-15.5) % Plt Count (150-450) k/uL Neutrophils % % Lymphocytes % % Monocytes % % Eosinophils % % Basophils % % Neutrophils # (1.3-7.7) k/uL Lymphocytes # (1.0-4.8) k/uL Monocytes # (0-1.0) k/uL Eosinophils # (0-0.7) k/uL Basophils # (0-0.2) k/uL Hypochromasia Anisocytosis PT (9.0-12.0) sec INR (<1.2) APTT (22.0-30.0) sec D-Dimer (<0.60) mg/L FEU Sodium (137-145) mmol/L Potassium (3.5-5.1) mmol/L Chloride (98-107) mmol/L Carbon Dioxide (22-30) mmol/L Anion Gap mmol/L BUN (9-20) mg/dL Creatinine (0.66-1.25) mg/dL Est GFR (CKD-EPI)AfAm (>60 ml/min/1.73 sqM) Est GFR (CKD-EPI)NonAf (>60 ml/min/1.73 sqM) Glucose (74-99) mg/dL Plasma Lactic Acid Michael (0.7-2.0) mmol/L Calcium (8.4-10.2) mg/dL Magnesium (1.6-2.3) mg/dL Total Bilirubin (0.2-1.3) mg/dL AST (17-59) U/L ALT (4-49) U/L Alkaline Phosphatase (38-126) U/L Lactate Dehydrogenase (313-618) U/L C-Reactive Protein (<10.0) mg/L Total Protein (6.3-8.2) g/dL Albumin (3.5-5.0) g/dL Urine Color Urine Appearance (Clear) Urine pH (5.0-8.0) Ur Specific Melville (1.001-1.035) Urine Protein (Negative) Urine Glucose (UA) (Negative) Urine Ketones (Negative) Urine Blood (Negative) Urine Nitrite (Negative) Urine Bilirubin (Negative) Urine Urobilinogen (<2.0) mg/dL Ur Leukocyte Esterase (Negative) Urine RBC (0-5) /hpf Urine WBC (0-5) /hpf Ur Squamous Epith Cells (0-4) /hpf Amorphous Sediment (None) /hpf Hyaline Casts (0-2) /lpf Urine Mucus (None) /hpf Coronavirus (PCR) Not Detected (Not Detectd) Influenza Type A RNA (Not Detectd) Influenza Type B (PCR) (Not Detectd) Disposition Clinical Impression: UTI (urinary tract infection), Sepsis, Exposure to COVID-19 virus, Dehydration, Hypernatremia, Advanced dementia, COPD (chronic obstructive pulmonary disease), At risk for readmission to hospital Disposition: ADMITTED IP TO THIS HOSP Condition: Serious
[2020-06-09 00:30] LABS: Albumin 2.7 g/dL (3.5-5.0); C Reactive Protein 73.5 mg/L (<10.0); Calcium 8.7 mg/dL (8.4-10.2); Potassium 3.8 mmol/L (3.5-5.1); Total Bilirubin 0.3 mg/dL (0.2-1.3); Total Protein 6.2 g/dL (6.3-8.2)
[2020-06-09 00:45] LABS: Partial Thromboplastin Time 22.7 sec (22.0-30.0); Prothrombin Time 10.4 sec (9.0-12.0)
[2020-06-09] MEDS ORDERED: cefTRIAXone IN SWFI 1,000 MG/10 ML SYRINGE IVP STA (00:48)
[2020-06-09] MEDS ORDERED: ACETAMINOPHEN TAB 325 MG TAB PO PRN (00:51)
[2020-06-09] MEDS ORDERED: NALOXONE 0.4 MG/ML 1 ML VIAL IV PRN (00:51)
[2020-06-09 00:56] LABS: D-Dimer 11.98 mg/L FEU (<0.60)
[2020-06-09 01:23] LABS: Amorphous Sediment,Urine Rare /hpf; Appearance,Urine Turbid (Clear); Bilirubin,Urine Negative (Negative); Blood,Urine Negative (Negative); Color,Urine Light Red; Glucose,Urine (UA) Negative (Negative); Hyaline Casts,Urine 1786 /lpf (0-2); Ketones,Urine Negative (Negative); Leukocyte Esterase,Urine Small (Negative); Mucus,Urine Many /hpf; Nitrite,Urine Negative (Negative); Protein,Urine Trace (Negative); RBC,Urine 134 /hpf (0-5); Specific Gravity,Urine 1.017 (1.001-1.035); Squamous Epithelial Cell,Urine 5 /hpf (0-4); Urobilinogen,Urine <2.0 mg/dL (<2.0); WBC,Urine 148 /hpf (0-5)
[2020-06-09] MEDS ORDERED: SODIUM CHLORIDE 0.9% 1,000 ML IV ONE (01:38)
[2020-06-09] MEDS: SODIUM CHLORIDE 0.9% 1,000 ML IV SCH ×2 (01:58→16:48)
--- NOTE | 2020-06-09 02:05 | CT ---
EXAM: CT Angiography Chest With Intravenous Contrast CLINICAL HISTORY: Stent , hypoxia, elevated dimer TECHNIQUE: Axial computed tomographic angiography images of the chest with intravenous contrast. CTDI is 16.97 mGy and DLP is 397 mGy-cm. This CT exam was performed using one or more of the following dose reduction techniques: automated exposure control, adjustment of the mA and/or kV according to patient size, and/or use of iterative reconstruction technique. MIP reconstructed images were created and reviewed. COMPARISON: December 07, 2019 FINDINGS: Limitations: Mildly limited by respiratory motion. Pulmonary arteries: No pulmonary emboli identified. Aorta: Ectatic ascending aorta at 4.7 cm. Stent within the descending aorta. 4.6 cm upper abdominal aortic aneurysm with large amount of eccentric thrombus. No significant change. Lungs: Irregular increased pulmonary density in the right lower lobe appears to mostly represent subsegmental atelectasis. Diffuse abnormal increased soft tissue density surrounding the bronchi and pulmonary arteries, most pronounced in the right lower lobe. This has a similar appearance to the prior examination. Diffuse emphysematous changes, most pounce in the upper lung fernández. No mass. Pleural space: Unremarkable. No significant effusion. No pneumothorax. Heart: Moderately large pericardial effusion. No evidence of RV dysfunction. Bones/joints: No acute fracture. No dislocation. Soft tissues: Unremarkable. Lymph nodes: Unremarkable. No enlarged lymph nodes. IMPRESSION: No evidence of pulmonary emboli. Pericardial effusion. Vascular abnormalities similar to prior study as above. Persistent diffuse abnormal soft tissue surrounding pulmonary arteries and bronchial structures, most pronounced in the right lower lobe. This is also stable.
[2020-06-09] MEDS ORDERED: LOPERAMIDE 2 MG CAP PO PRN (10:04)
[2020-06-09] MEDS ORDERED: METOCLOPRAMIDE 5 MG TAB PO PRN (10:04)
--- NOTE | 2020-06-09 10:07 | P.HPIM ---
History of Present Illness H&P Date: 06/09/20 Chief Complaint: Sepsis, fever and chills, hypertension, severe altered mental status and ad 75-year-old male one of Dr. Baer's patient at [facility] who brought to the hospital emergency room for possible sepsis patient was having fever or chills increased shortness of breath with worsening symptom with decrease left left responsiveness along with worsening dementia in mentation. Patient was seen and evaluated demurs department elevated white blood cell d-dimer was elevated as well patient was in acute kidney failure C-reactive protein was quite bit high patient urine was very positive cultures pending at this point blood culture was done as well. CT of the lung came back positive for mild pericardial effusion vascular abnormality similar to prior study had diffuse soft tissue surrounding the pulmonary artery and the bronchial structure most prominent of right lower lobe pneumonia. No sign of PE was found time. Patient will be treated for sepsis caused by UTI and right lower lobe pneumonia. High possibility of aspiration at this point. His influenza and Covid came back negative,. Review of Systems CONSTITUTIONAL: Well-developed no acute respiratory distress. EYES: No icterus sclerae, no conjunctivitis. EARS, NOSE, MOUTH, THROAT, and FACE: No sore throat, lymphadenopathy, carotid bruits or deformity. RESPIRATORY: Positive shortness of breath cough wheezes. CARDIOVASCULAR: No CP, Palpitation, PND, Orthopnea, or angina. GASTROINTESTINAL: No Abd pain, Nausea or vomiting, no Diarrhea or constipation, No GI Bleed, no distention or masses. GENITOURINARY: Worsening incontinence. INTEGUMENT/BREAST: Negative for any muscular injury with mild osteoarthritis.. HEMATOLOGIC/LYMPHATIC: Negative for bleed or purpura. MUSCULOSKELTAL: Negative for Myalgia or arthralgia. NEURLOGICAL: No LOC, Sz or syncope, blurred vision dizziness or abnormality.. BEHAVIORAL/PSYCH: Worsening dementia ENDOCRINE: Negative. Past Medical History Past Medical History: COPD, Dementia, GERD/Reflux, Hypertension, Osteoarthritis (OA), Prostate Disorder, Vascular Disorder History of Any Multi-Drug Resistant Organisms: None Reported Past Surgical History: Unable to Obtain Additional Past Surgical History / Comment(s): Endovascular stent graft for aortic aneurysm. Past Anesthesia/Blood Transfusion Reactions: No Reported Reaction Past Psychological History: Depression Smoking Status: Current every day smoker, Former smoker Past Alcohol Use History: None Reported Past Drug Use History: None Reported - Past Family History Mother Family Medical History: Myocardial Infarction ([place]) Additional Family Medical History / Comment(s): Mother in her 80s from myocardial infarction. Father Family Medical History: Dementia Additional Family Medical History / Comment(s): Father had dementia in his late 80s. Sister(s) Family Medical History: Cancer Additional Family Medical History / Comment(s): Patient had 3 sister 2 of them from some sort of cancer. Son(s) Family Medical History: No Reported History Additional Family Medical History / Comment(s): Patient has 2 sons no major medical problems. Medications and Allergies Home Medications Medication Instructions Recorded Confirmed Type Budesonide/Formoterol Fumarate 2 puff INHALATION RT-BID@899,209901/03/17 06/09/20 History [Symbicort 160-4.5 Mcg Inhaler] Docusate [Colace] 100 mg PO DAILY@89901/03/17 06/09/20 History Ocusoft Lid Scrub Pad 1 applic BOTH EYES HS@209901/03/17 06/09/20 History Tamsulosin [Flomax] 0.4 mg PO HS@209901/03/17 06/09/20 History Albuterol Sulfate [Proventil Hfa] 1 puff INHALATION RT-QID PRN 12/07/19 06/09/20 History Cholecalciferol [Vitamin D3 (25 2,000 unit PO DAILY@89912/07/19 06/09/20 History Mcg = 1000 Iu)] Ensure Clear 240 ml PO PC-TID 12/07/19 06/09/20 History Furosemide [Lasix] 20 mg PO BID@0600,1200 12/07/19 06/09/20 History Pantoprazole [Protonix] 40 mg PO DAILY@59912/07/19 06/09/20 History Sertraline HCl [Zoloft] 25 mg PO DAILY@89912/07/19 06/09/20 History Potassium Chloride ER [K-Dur 10] 10 meq PO DAILY@89902/27/20 06/09/20 History Loperamide [Imodium] 2 - 4 mg PO QID PRN MDD 4 caps 06/09/20 06/09/20 History Metoclopramide HCl [Reglan] 5 mg PO Q12H PRN 06/09/20 06/09/20 History Allergies Allergy/AdvReac Type Severity Reaction Status Date / Time No Known Allergies Allergy Verified 06/09/20 07:29 Physical Exam Vitals: Vital Signs Temp Pulse Resp BP Pulse Ox 06/09/20 06:01 85 19 143/83 100 06/09/20 02:45 93 24 138/86 100 06/09/20 01:55 101 H 25 H 134/87 99 06/09/20 01:00 104 H 25 H 146/83 98 06/09/20 00:30 105 H 26 H 111/75 98 06/09/20 00:06 115 H 28 H 124/83 06/08/20 23:15 99.5 F 116 H 28 H 132/85 97 Intake and Output 06/08/20 06/09/20 06/09/20 22:59 06:59 14:59 Other: Weight 77.474 kg General Appearance: Alert, cooperative, no distress, appears stated age. Neck HEENT: Supple, no lymphadenopathy, no thyroid enlargement, no carotid b ruits. Lungs: Decreased mobility with worsening of the right lower lobe with mild bronchial abnormality along with rhonchi and mild wheezes. Chest Wall: Decrease expansion with deep inspiration no tenderness and no deformity was found on exam, no costochondral pain or discomfort. Heart: Regular rate and rhythm, S1, S2 normal, no murmur, rub or gallop. Back: Symmetric, no curvature, ROM normal, no CVA tenderness. Abdomen: Soft, non-tender, bowel sounds active all four quadrants, no masses, no organomegaly. Slight discomfort in the mid lower abdominal area. Extremities: Extremities normal, atraumatic, no cyanosis or edema. Pulses: 2+ and symmetric. Skin: Skin color, texture, tugor normal, no rashes or lesions. Neurologic: Alert oriented severely confuse, cranial nerves II through XII intact, positive generalized weakness not been able to do gait exam. Results CBC & Chem 7: 06/08/20 00:09 06/08/20 00:09 Labs: Abnormal Lab Results - Last 24 Hours (Table) 06/08/20 06/08/20 06/08/20 Range/Units 00:09 00:09 00:09 WBC 12.9 H (3.8-10.6) k/uL RBC 4.18 L (4.30-5.90) m/uL Hgb 10.8 L (13.0-17.5) gm/dL Hct 34.8 L (39.0-53.0) % MCHC 30.9 L (31.0-37.0) g/dL RDW 16.8 H (11.5-15.5) % Neutrophils # 10.7 H (1.3-7.7) k/uL D-Dimer 11.98 H (<0.60) mg/L FEU Sodium 148 H (137-145) mmol/L Chloride 113 H (98-107) mmol/L BUN 32 H (9-20) mg/dL Creatinine 1.46 H (0.66-1.25) mg/dL Glucose 115 H (74-99) mg/dL C-Reactive Protein 73.5 H (<10.0) mg/L Total Protein 6.2 L (6.3-8.2) g/dL Albumin 2.7 L (3.5-5.0) g/dL Urine Protein (Negative) Ur Leukocyte Esterase (Negative) Urine RBC (0-5) /hpf Urine WBC (0-5) /hpf Ur Squamous Epith Cells (0-4) /hpf Amorphous Sediment (None) /hpf Hyaline Casts (0-2) /lpf Urine Mucus (None) /hpf 06/08/20 Range/Units 00:31 WBC (3.8-10.6) k/uL RBC (4.30-5.90) m/uL Hgb (13.0-17.5) gm/dL Hct (39.0-53.0) % MCHC (31.0-37.0) g/dL RDW (11.5-15.5) % Neutrophils # (1.3-7.7) k/uL D-Dimer (<0.60) mg/L FEU Sodium (137-145) mmol/L Chloride (98-107) mmol/L BUN (9-20) mg/dL Creatinine (0.66-1.25) mg/dL Glucose (74-99) mg/dL C-Reactive Protein (<10.0) mg/L Total Protein (6.3-8.2) g/dL Albumin (3.5-5.0) g/dL Urine Protein Trace H (Negative) Ur Leukocyte Esterase Small H (Negative) Urine RBC 134 H (0-5) /hpf Urine WBC 148 H (0-5) /hpf Ur Squamous Epith Cells 5 H (0-4) /hpf Amorphous Sediment Rare H (None) /hpf Hyaline Casts 1786 H (0-2) /lpf Urine Mucus Many H (None) /hpf Microbiology - Last 24 Hours (Table) 06/08/20 00:31 Urine Culture - Preliminary Urine,Clean Catch Thrombosis Risk Factor Assmnt - DVT/VTE Prophylaxis DVT/VTE Prophylaxis: Pharmacologic Prophylaxis ordered, Mechanical Prophylaxis ordered Assessment and Plan Assessment: 1 sepsis: Most likely from right lower lobe pneumonia and UTI continue gram- negative coverage at this point infectious disease consultation and awaiting for final culture. Patient will be switched to Zosyn and Levaquin for the final cultures back. 2 right lower lobe pneumonia: Patient will be continue on antibiotics pulmonary consultation be done continue DuoNeb and O2. 3 urinary tract infection and sepsis: Urine cultures pending urine was very positive Levaquin and Zosyn at this point the cultures final. 4 COPD: Patient was on DuoNeb and out of control continue medication. 5 CHF: Resume diuretics when the infection is under better control. 6 chronic gastroparesis: Patient remain on pantoprazole and Reglan continue medication. 7 BPH: Patient remain on tamsulosin. 8 chronic depression on sertraline 25 mg a day. 9 acute kidney injury: Most likely ATN continue gentle hydration treat sepsis and recheck patient BUN/creatinine. 10 DVT prophylaxis: Patient be on heparin subcutaneous. 11 GI prophylaxis: Patient will be on pantoprazole. CODE STATUS: Full code. Admit patient to the inpatient status for more than 2 nights stable.
[2020-06-09] MEDS ORDERED: PIPERACILLIN-TAZOBACTAM 3.375 GM in SODIUM CHLORIDE 0.9% 100 ML IVPB SCH (11:00)
[2020-06-09] MEDS: LEVOFLOXACIN 500MG-D5W PMX 500 MG in DEXTROSE/WATER 1 100ML.BAG IVPB SCH (11:45)
[2020-06-09] MEDS ORDERED: NON FORMULARY DRUG (Ensure Clear 1 BOX Liquid) PO SCH (13:30)
[2020-06-09 15:14] LABS: Ferritin 59.4 ng/mL (22.0-322.0)
[2020-06-09] MEDS: FUROSEMIDE 20 MG TAB PO SCH (16:48)
[2020-06-09] MEDS: TAMSULOSIN 0.4 MG CAP.ER.24H PO SCH (22:56)
[2020-06-10] MEDS: PIPERACILLIN-TAZOBACTAM 3.375 GM in SODIUM CHLORIDE 0.9% 100 ML IVPB SCH ×4 (00:35→23:53)
[2020-06-10 05:10] LABS: Anisocytosis Slight; Basophils # (A) 0.1 k/uL (0-0.2); Basophils % (A) 1 %; Eosinophils # (A) 0.2 k/uL (0-0.7); Eosinophils % (A) 2 %; HCT 31.5 % (39.0-53.0); Hypochromasia Marked; Lymphocytes # (A) 0.9 k/uL (1.0-4.8); Lymphocytes % (A) 9 %; MCH 24.1 pg (25.0-35.0); MCHC 28.2 g/dL (31.0-37.0); MCV 85.6 fL (80.0-100.0); Mean Platelet Volume 6.6; Monocytes # (A) 0.4 k/uL (0-1.0); Monocytes % (A) 4 %; Neutrophils # (A) 8.2 k/uL (1.3-7.7); Neutrophils % (A) 83 %; Platelet Count 242 k/uL (150-450); RBC 3.68 m/uL (4.30-5.90); RDW 16.8 % (11.5-15.5); WBC 9.9 k/uL (3.8-10.6)
[2020-06-10 05:21] LABS: HGB 8.9 gm/dL (13.0-17.5)
[2020-06-10] MEDS: FUROSEMIDE 20 MG TAB PO SCH ×2 (05:39→14:05)
[2020-06-10] MEDS: PANTOPRAZOLE 40 MG TABLET PO SCH (05:40)
[2020-06-10] MEDS: SODIUM CHLORIDE 0.9% 1,000 ML IV SCH (05:42)
[2020-06-10] MEDS: SERTRALINE 25 MG TAB PO SCH (09:12)
[2020-06-10] MEDS: DOCUSATE 100 MG CAP PO SCH (09:12)
[2020-06-10] MEDS: POTASSIUM CHLORIDE ER 10 MEQ TAB.ER.PRT PO SCH (09:12)
[2020-06-10] MEDS: CHOLECALCIFEROL 1,000 UNIT TAB PO SCH (09:13)
[2020-06-10 09:33] LABS: African American GFR (CKD) 84.4 (60.0-200.0); Albumin 2.5 g/dL (3.80-4.90); Anion Gap 5.9 mmol/L (4.00-12.00); Calcium 8.2 mg/dL (8.7-10.3); Carbon Dioxide 27.1 mmol/L (21.6-31.8); Globulin 2.5 g/dL (1.6-3.3); Non-African American GFR(CKD) 72.8 (60.0-200.0); Potassium 3.8 mmol/L (3.5-5.5); Total Bilirubin 0.2 mg/dL (0.3-1.2)
--- NOTE | 2020-06-10 13:49 | P.PN ---
Subjective Progress Note Date: 06/10/20 HISTORY OF PRESENT ILLNESS 75-year-old male one of Dr. Baer's patient at [facility] who brought to the [facility] emergency room for possible sepsis patient was having fever or chills increased shortness of breath with worsening symptom with decrease left left responsiveness along with worsening dementia in mentation. Patient was seen and evaluated demurs department elevated white blood cell d-dimer was elevated as well patient was in acute kidney failure C-reactive protein was quite bit high patient urine was very positive cultures pending at this point blood culture was done as well. CT of the lung came back positive for mild pericardial effusion vascular abnormality similar to prior study had diffuse soft tissue surrounding the pulmonary artery and the bronchial structure most prominent of right lower lobe pneumonia. No sign of PE was found time. Patient will be treated for sepsis caused by UTI and right lower lobe pneumonia. High possibility of aspiration at this point. His influenza and Covid came back negative. 06/10: Patient is seen today on the [facility] floor. He has been afebrile, heart rate 66, blood pressure 151/88, pulse ox 100% on 4 L nasal cannula. Repeat blood work reveals WBC 9.9, hemoglobin 8.9, platelet count 242. Sodium 152, potassium 3.8, chloride 119. Creatinine 1. Covid 19 not detected. Blood cultures coag-negative staph and urine culture finalized with skin zackery. IV fluids will be changed to D5.45 normal saline. Recheck laboratory studies in the morning. REVIEW OF SYSTEMS CONSTITUTIONAL: Well-developed no acute respiratory distress. No documented fevers. EYES: No icterus sclerae, no conjunctivitis. EARS, NOSE, MOUTH, THROAT, and FACE: No sore throat, lymphadenopathy, carotid bruits or deformity. RESPIRATORY: Positive shortness of breath cough wheezes. CARDIOVASCULAR: No CP, Palpitation, PND, Orthopnea, or angina. GASTROINTESTINAL: No Abd pain, Nausea or vomiting, no Diarrhea or constipation, No GI Bleed, no distention or masses. GENITOURINARY: Worsening incontinence. INTEGUMENT/BREAST: Negative for any muscular injury with mild osteoarthritis.. HEMATOLOGIC/LYMPHATIC: Negative for bleed or purpura. MUSCULOSKELTAL: Negative for Myalgia or arthralgia. NEURLOGICAL: No LOC, Sz or syncope, blurred vision dizziness or abnormality.. BEHAVIORAL/PSYCH: Worsening dementia ENDOCRINE: Negative. PHYSICAL EXAMINATION General Appearance: Alert, cooperative, no distress, appears stated age. Neck HEENT: Supple, no lymphadenopathy, no thyroid enlargement, no carotid bruits. Lungs: Decreased mobility with worsening of the right lower lobe with mild bronchial abnormality along with rhonchi and mild wheezes. Chest Wall: Decrease expansion with deep inspiration no tenderness and no deformity was found on exam, no costochondral pain or discomfort. Heart: Regular rate and rhythm, S1, S2 normal, no murmur, rub or gallop. Back: Symmetric, no curvature, ROM normal, no CVA tenderness. Abdomen: Soft, non-tender, bowel sounds active all four quadrants, no masses, no organomegaly. No abdominal tenderness. Extremities: Extremities normal, atraumatic, no cyanosis or edema. Pulses: 2+ and symmetric. Skin: Skin color, texture, tugor normal, no rashes or lesions. Neurologic: Alert oriented severely confuse, cranial nerves II through XII intact, positive generalized weakness. ASSESSMENT AND PLAN 1 sepsis: Most likely from right lower lobe pneumonia and UTI continue gram- negative coverage at this point infectious disease consultation and awaiting for final culture. Patient will be switched to Zosyn and Levaquin for the final cultures back. 2 right lower lobe pneumonia, gram-negative. Continue Levaquin and Zosyn, consult Dr. Bermudez from pulmonary medicine, continue DuoNeb and O2. 3 urinary tract infection and sepsis: Urine cultures finalized with no growth. 4 COPD, without exacerbation. 5 hypertension. Continue Lasix. 6 chronic gastroparesis: Patient remain on pantoprazole and Reglan continue med ication. 7 BPH: Patient remain on tamsulosin. 8 recurrent depression on sertraline 25 mg a day. 9 acute kidney injury: Most likely ATN continue gentle hydration treat sepsis and recheck patient BUN/creatinine. 10 DVT prophylaxis: Patient be on heparin subcutaneous. 11 GI prophylaxis: Patient will be on pantoprazole. CODE STATUS: Full code. DISCHARGE PLAN Return to [facility] on the [place] Impression and plan of care have been directed as dictated by the signing physician. Karon Hubbard nurse practitioner acting as scribe for signing physician. Objective - Vital Signs Vital signs: Vital Signs Temp 98.6 F 06/10/20 05:00 Pulse 66 06/10/20 05:00 Resp 20 06/10/20 05:00 BP 151/88 06/10/20 05:00 Pulse Ox 100 06/10/20 05:00 Intake & Output 06/09/20 06/10/20 06/10/20 18:59 06:59 18:59 Intake Total 700 Balance 700 Weight 77.474 kg Intake: Intake, IV Titration 700 Amount Piperacillin-Tazobactam 3 100 .375 gm In Sodium Chloride 0.9% 100 ml @ 25 mls/hr IVPB Q8HR [facility] Rx# :[id number] Sodium Chloride 0.9% 1, 600 000 ml @ 75 mls/hr IV . [id number] [facility] Rx#:[id number] Oral 0 Other: Voiding Method Diaper # Voids 2 - Labs CBC & Chem 7: 06/10/20 04:47 06/10/20 04:47 Labs: Abnormal Lab Results - Last 24 Hours (Table) 06/08/20 06/10/20 Range/Units 00:09 04:47 RBC 3.68 L (4.30-5.90) m/uL Hgb 8.9 L D (13.0-17.5) gm/dL Hct 31.5 L (39.0-53.0) % MCH 24.1 L (25.0-35.0) pg MCHC 28.2 L (31.0-37.0) g/dL RDW 16.8 H (11.5-15.5) % Neutrophils # 8.2 H (1.3-7.7) k/uL Lymphocytes # 0.9 L (1.0-4.8) k/uL Procalcitonin 0.67 H (0.02-0.09) ng/mL Microbiology - Last 24 Hours (Table) 06/01/20 00:09 Blood Culture Gram Stain - Preliminary Blood 06/08/20 00:09 Blood Culture - Final Blood 06/08/20 00:31 Urine Culture - Preliminary Urine,Clean Catch
[2020-06-10] MEDS: DEXTROSE 5%-0.45% NACL 1,000 ML IV SCH (14:04)
[2020-06-10] MEDS: LEVOFLOXACIN 500MG-D5W PMX 500 MG in DEXTROSE/WATER 1 100ML.BAG IVPB SCH (14:05)
--- NOTE | 2020-06-10 20:33 | P.CNPUL ---
History of Present Illness Reason for consult: dyspnea, cough, pneumonia Chief complaint: Fever or chills and shortness of breath History of present illness: Patient seen eval examined on 6 floor not much data obtained from the patient as overall poor historian, most of the data has been obtained from the chart, patient admitted into the hospital with fevers chills and worsening of mental status, patient is a resident of [facility] care facility at [facility] Dr. Loomis for primary care activity, patient has been admitted from the emergency department with fever and chills, overall patient does have a history of dementia but however at [facility] noted to be more unresponsive, labs performed s uggestive of sepsis with high d-dimer urine appears infected cultures are pending, computed tomography scan of the chest suggestive of pericardial effusion right lower lobe pneumonia negative for pulmonary embolism, his influenza and covert however are negative, pneumonia appears to be aspiration re lated likely gram-negative, white cell count is elevated on arrival 12,900, hyponatremia sodium 152 also noted, patient noted to have evidence of acute kidney injury with GFR of the 46%, blood cultures preliminary positive for coag -negative staph likely contaminant urine culture results are pending Review of Systems ROS unobtainable: due to mental status Past Medical History Past Medical History: COPD, Dementia, GERD/Reflux, Hypertension, Osteoarthritis (OA), Prostate Disorder, Vascular Disorder History of Any Multi-Drug Resistant Organisms: None Reported Past Surgical History: Unable to Obtain Additional Past Surgical History / Comment(s): Endovascular stent graft for aortic aneurysm. Past Anesthesia/Blood Transfusion Reactions: No Reported Reaction Past Psychological History: Depression Smoking Status: Current every day smoker, Former smoker Past Alcohol Use History: None Reported Past Drug Use History: None Reported - Past Family History Mother Family Medical History: Myocardial Infarction ([place]) Additional Family Medical History / Comment(s): Mother in her 80s from myocardial infarction. Father Family Medical History: Dementia Additional Family Medical History / Comment(s): Father had dementia in his late 80s. Sister(s) Family Medical History: Cancer Additional Family Medical History / Comment(s): Patient had 3 sister 2 of them from some sort of cancer. Son(s) Family Medical History: No Reported History Additional Family Medical History / Comment(s): Patient has 2 sons no major medical problems. Medications and Allergies Home Medications Medication Instructions Recorded Confirmed Type Budesonide/Formoterol Fumarate 2 puff INHALATION RT-BID@899,209901/03/17 06/09/20 History [Symbicort 160-4.5 Mcg Inhaler] Docusate [Colace] 100 mg PO DAILY@89901/03/17 06/09/20 History Ocusoft Lid Scrub Pad 1 applic BOTH EYES HS@209901/03/17 06/09/20 History Tamsulosin [Flomax] 0.4 mg PO HS@209901/03/17 06/09/20 History Albuterol Sulfate [Proventil Hfa] 1 puff INHALATION RT-QID PRN 12/07/19 06/09/20 History Cholecalciferol [Vitamin D3 (25 2,000 unit PO DAILY@89912/07/19 06/09/20 History Mcg = 1000 Iu)] Ensure Clear 240 ml PO PC-TID 12/07/19 06/09/20 History Furosemide [Lasix] 20 mg PO BID@0600,1200 12/07/19 06/09/20 History Pantoprazole [Protonix] 40 mg PO DAILY@59912/07/19 06/09/20 History Sertraline HCl [Zoloft] 25 mg PO DAILY@89912/07/19 06/09/20 History Potassium Chloride ER [K-Dur 10] 10 meq PO DAILY@89902/27/20 06/09/20 History Loperamide [Imodium] 2 - 4 mg PO QID PRN MDD 4 caps 06/09/20 06/09/20 History Metoclopramide HCl [Reglan] 5 mg PO Q12H PRN 06/09/20 06/09/20 History Allergies Allergy/AdvReac Type Severity Reaction Status Date / Time No Known Allergies Allergy Verified 06/09/20 07:29 Physical Exam Vitals: Vital Signs Temp Pulse Resp BP Pulse Ox 06/10/20 16:00 22 06/10/20 13:22 98.2 F 77 22 108/80 98 06/10/20 05:00 98.6 F 66 20 151/88 100 06/10/20 00:00 100 Intake and Output 06/10/20 06/10/20 06/10/20 06:59 14:59 22:59 Intake Total 700 Balance 700 Intake: Intake, IV Titration 700 Amount Piperacillin-Tazobactam 3 100 .375 gm In Sodium Chloride 0.9% 100 ml @ 25 mls/hr IVPB Q8HR [facility] Rx# :[id number] Sodium Chloride 0.9% 1, 600 000 ml @ 75 mls/hr IV . [id number] [facility] Rx#:[id number] Other: Voiding Method Diaper Diaper Diaper # Voids 2 1 - Constitutional General appearance: average body habitus, cooperative, disheveled - EENT Eyes: PERRLA Ears: bilateral: normal - Neck Neck: normal ROM Carotids: bilateral: upstroke normal - Respiratory Respiratory: bilateral: diminished, rales - Cardiovascular Rhythm: regular Heart sounds: normal: S1, S2 - Gastrointestinal General gastrointestinal: normal bowel sounds - Musculoskeletal Musculoskeletal: generalized weakness, strength equal bilaterally Results - Laboratory Findings CBC and BMP: 06/10/20 04:47 06/10/20 04:47 PT/INR, D-dimer PT 10.4 sec (9.0-12.0) 06/08/20 00:09 INR 1.0 (<1.2) 06/08/20 00:09 D-Dimer 11.98 mg/L FEU (<0.60) H 06/08/20 00:09 Abnormal lab findings: Abnormal Labs 06/08/20 06/08/20 06/08/20 00:09 00:09 00:09 WBC 12.9 H RBC 4.18 L Hgb 10.8 L Hct 34.8 L MCH MCHC 30.9 L RDW 16.8 H Neutrophils # 10.7 H Lymphocytes # D-Dimer 11.98 H Sodium 148 H Chloride 113 H BUN 32 H Creatinine 1.46 H BUN/Creatinine Ratio Glucose 115 H Calcium Total Bilirubin C-Reactive Protein 73.5 H Total Protein 6.2 L Albumin 2.7 L Albumin/Globulin Ratio Procalcitonin Urine Protein Ur Leukocyte Esterase Urine RBC Urine WBC Ur Squamous Epith Cells Amorphous Sediment Hyaline Casts Urine Mucus 06/08/20 06/08/20 06/10/20 00:09 00:31 04:47 WBC RBC 3.68 L Hgb 8.9 L D Hct 31.5 L MCH 24.1 L MCHC 28.2 L RDW 16.8 H Neutrophils # 8.2 H Lymphocytes # 0.9 L D-Dimer Sodium Chloride BUN Creatinine BUN/Creatinine Ratio Glucose Calcium Total Bilirubin C-Reactive Protein Total Protein Albumin Albumin/Globulin Ratio Procalcitonin 0.67 H Urine Protein Trace H Ur Leukocyte Esterase Small H Urine RBC 134 H Urine WBC 148 H Ur Squamous Epith Cells 5 H Amorphous Sediment Rare H Hyaline Casts 1786 H Urine Mucus Many H 06/10/20 04:47 WBC RBC Hgb Hct MCH MCHC RDW Neutrophils # Lymphocytes # D-Dimer Sodium 152 H Chloride 119 H BUN Creatinine BUN/Creatinine Ratio 25.00 H Glucose Calcium 8.2 L Total Bilirubin 0.2 L C-Reactive Protein Total Protein 5.0 L Albumin 2.50 L Albumin/Globulin Ratio 1.00 L Procalcitonin Urine Protein Ur Leukocyte Esterase Urine RBC Urine WBC Ur Squamous Epith Cells Amorphous Sediment Hyaline Casts Urine Mucus - Diagnostic Findings Chest x-ray: report reviewed, image reviewed CT scan - chest: report reviewed, image reviewed Assessment and Plan Assessment: Sepsis Right lower lobe aspiration pneumonia Acute UTI Acute hypoxic respiratory failure Worsening of altered mental status likely related to severe sepsis Advanced dementia and thymus disease Acute kidney injury Hypernatremia Plan: Agree with IV antibiotic Gentle hydration with half normal saline Aspiration precautions Follow-up on urine and blood culture and sputum culture Monitor renal functions closely Monitor sodium closely Further recommendations pending plan of care as per clinical response of the patient Time with Patient: Greater than 30
[2020-06-10] MEDS: TAMSULOSIN 0.4 MG CAP.ER.24H PO SCH (20:35)
[2020-06-11] MEDS: PANTOPRAZOLE 40 MG TABLET PO SCH (05:35)
[2020-06-11] MEDS: FUROSEMIDE 20 MG TAB PO SCH ×2 (05:35→12:56)
[2020-06-11] MEDS: CHOLECALCIFEROL 1,000 UNIT TAB PO SCH (09:07)
[2020-06-11] MEDS: PIPERACILLIN-TAZOBACTAM 3.375 GM in SODIUM CHLORIDE 0.9% 100 ML IVPB SCH ×3 (09:07→23:52)
[2020-06-11] MEDS: DOCUSATE 100 MG CAP PO SCH (09:07)
[2020-06-11] MEDS: SERTRALINE 25 MG TAB PO SCH (09:08)
[2020-06-11] MEDS: POTASSIUM CHLORIDE ER 10 MEQ TAB.ER.PRT PO SCH (09:08)
[2020-06-11 09:23] LABS: Anisocytosis Slight; HCT 31.8 % (39.0-53.0); HGB 9.4 gm/dL (13.0-17.5); Hypochromasia Marked; MCH 25.5 pg (25.0-35.0); MCHC 29.5 g/dL (31.0-37.0); MCV 86.2 fL (80.0-100.0); Mean Platelet Volume 6.5; Platelet Count 247 k/uL (150-450); RBC 3.69 m/uL (4.30-5.90); RDW 16.6 % (11.5-15.5); WBC 9.2 k/uL (3.8-10.6)
[2020-06-11 09:30] LABS: ALT 19 U/L (4-49); AST 21 U/L (17-59); African American GFR (CKD) 82 (>60 ml/min/1.73 sqM); Albumin 2.3 g/dL (3.5-5.0); Albumin/Globulin Ratio 0.8; Alkaline Phosphatase 65 U/L (38-126); Anion Gap 3 mmol/L; Blood Urea Nitrogen 21 mg/dL (9-20); Calcium 8.3 mg/dL (8.4-10.2); Carbon Dioxide 26 mmol/L (22-30); Chloride 114 mmol/L (98-107); Glucose 136 mg/dL (74-99); Non-African American GFR(CKD) 71 (>60 ml/min/1.73 sqM); Potassium 3.3 mmol/L (3.5-5.1); Sodium 143 mmol/L (137-145); Total Bilirubin 0.4 mg/dL (0.2-1.3); Total Protein 5.3 g/dL (6.3-8.2)
[2020-06-11] MEDS: DEXTROSE 5%-0.45% NACL 1,000 ML IV SCH (10:46)
[2020-06-11] MEDS: LEVOFLOXACIN 500MG-D5W PMX 500 MG in DEXTROSE/WATER 1 100ML.BAG IVPB SCH (12:44)
--- NOTE | 2020-06-11 14:10 | P.PN ---
Subjective Progress Note Date: 06/11/20 Principal diagnosis: Sepsis Right lower lobe aspiration pneumonia Acute UTI Acute hypoxic respiratory failure Worsening of altered mental status likely related to severe sepsis Advanced dementia and thymus disease Acute kidney injury Hypernatremia 06/11/2020, patient seen eval examined during the rounds labs reviewed medications reviewed, if still congested, arousable, mostly nonverbal and noncommunicative, saturation is 99% on 3 L nasal cannula, down from 4 L, hemo dynamic stable, remains afebrile, urine negative and blood culture have been positive for gram-positive cocci in clusters, patient remains on broad-spectrum antibiotics including Levaquin and Zosyn, initial blood culture were positive for staph epi, Patient seen eval examined on 6 floor not much data obtained from the patient as overall poor historian, most of the data has been obtained from the chart, patient admitted into the hospital with fevers chills and worsening of mental status, patient is a resident of [facility] Dr. Loomis for primary care activity, patient has been admitted from the emergency department with fever and chills, overall patient does have a history of dementia but however at [facility] noted to be more unresponsive, labs performed suggestive of sepsis with high d-dimer urine appears infected cultures are pending, computed tomography scan of the chest suggestive of pericardial effusion right lower lobe pneumonia negative for pulmonary embolism, his influenza and covert however are negative, pneumonia appears to be aspiration related likely gram-negative, white cell count is elevated on arrival 12,900, hyponatremia sodium 152 also noted, patient noted to have evidence of acute kidney injury with GFR of the 46%, blood cultures preliminary positive for coag -negative staph likely contaminant urine culture results are pending Objective - Vital Signs Vital signs: Vital Signs Temp 98.0 F 06/11/20 12:59 Pulse 61 06/11/20 12:59 Resp 18 06/11/20 12:59 BP 111/62 06/11/20 12:59 Pulse Ox 99 06/11/20 12:59 Intake & Output 06/10/20 06/11/20 06/11/20 18:59 06:59 18:59 Intake Total 1360 Balance 1360 Intake: Oral 1360 Other: Voiding Method Diaper Diaper Diaper # Voids 1 3 1 - Exam - Constitutional General appearance: average body habitus, cooperative, disheveled - EENT Eyes: PERRLA Ears: bilateral: normal - Neck Neck: normal ROM Carotids: bilateral: upstroke normal - Respiratory Respiratory: bilateral: diminished, rales - Cardiovascular Rhythm: regular Heart sounds: normal: S1, S2 - Gastrointestinal General gastrointestinal: normal bowel sounds - Musculoskeletal Musculoskeletal: generalized weakness, strength equal bilaterally - Labs CBC & Chem 7: 06/11/20 08:37 06/11/20 08:37 Labs: Abnormal Lab Results - Last 24 Hours (Table) 06/11/20 06/11/20 Range/Units 08:37 08:37 RBC 3.69 L (4.30-5.90) m/uL Hgb 9.4 L (13.0-17.5) gm/dL Hct 31.8 L (39.0-53.0) % MCHC 29.5 L (31.0-37.0) g/dL RDW 16.6 H (11.5-15.5) % Potassium 3.3 L (3.5-5.1) mmol/L Chloride 114 H (98-107) mmol/L BUN 21 H (9-20) mg/dL Glucose 136 H (74-99) mg/dL Calcium 8.3 L (8.4-10.2) mg/dL Total Protein 5.3 L (6.3-8.2) g/dL Albumin 2.3 L (3.5-5.0) g/dL Microbiology - Last 24 Hours (Table) 06/08/20 00:31 Urine Culture - Final Urine,Clean Catch 06/01/20 00:09 Blood Culture Gram Stain - Preliminary Blood Blood Culture - Preliminary Coagulase Negative Staph Assessment and Plan Assessment: Sepsis Bacteremia gram-positive cocci in cluster appears to be staph epi however final ID and sensitivities pending since the patient is afebrile and white cell count is coming down and we'll hold on adding vancomycin Right lower lobe aspiration pneumonia Acute UTI Acute hypoxic respiratory failure Worsening of altered mental status likely related to severe sepsis Advanced dementia and thymus disease Acute kidney injury Hypernatremia Plan: Agree with IV antibiotic Gentle hydration with half normal saline Aspiration precautions Follow-up on urine and blood culture and sputum culture Monitor renal functions closely Monitor sodium closely Further recommendations pending plan of care as per clinical response of the patient Time with Patient: Greater than 30
[2020-06-11] MEDS ORDERED: POTASSIUM CHLORIDE ER 20 MEQ TAB.ER PO STA (14:34)
--- NOTE | 2020-06-11 14:37 | P.PN ---
Subjective Progress Note Date: 06/11/20 HISTORY OF PRESENT ILLNESS 75-year-old male one of Dr. Baer's patient at [facility] who brought to the [facility] emergency room for possible sepsis patient was having fever or chills increased shortness of breath with worsening symptom with decrease left left responsiveness along with worsening dementia in mentation. Patient was seen and evaluated demurs department elevated white blood cell d-dimer was elevated as well patient was in acute kidney failure C-reactive protein was quite bit high patient urine was very positive cultures pending at this point blood culture was done as well. CT of the lung came back positive for mild pericardial effusion vascular abnormality similar to prior study had diffuse soft tissue surrounding the pulmonary artery and the bronchial structure most prominent of right lower lobe pneumonia. No sign of PE was found time. Patient will be treated for sepsis caused by UTI and right lower lobe pneumonia. High possibility of aspiration at this point. His influenza and Covid came back negative. 06/10: [facility] He has been afebrile, heart rate 66, blood pressure 151/88, pulse ox 100% on 4 L nasal cannula. Repeat blood work reveals WBC 9.9, hemoglobin 8.9, platelet count 242. Sodium 152, potassium 3.8, chloride 119. Creatinine 1. Covid 19 not detected. Blood cultures coag-negative staph and urine culture finalized with skin zackery. IV fluids will be changed to D5.45 normal saline. Recheck laboratory studies in the morning. 06/11: Patient has been seen by Dr. Bermudez. No new complaints or concerns overnight. He has been afebrile, heart rate 67, blood pressure 123/70, pulse ox 98% on 3 L nasal cannula. Repeat blood work reveals sodium 143, potassium 3.3 will be replaced, chloride 114, CO2 26, BUN 21 creatinine 1.02. WBC 9.2, hemoglobin 9.4. Anticipate discharge back to [facility] tomorrow in stable condition. REVIEW OF SYSTEMS CONSTITUTIONAL: Well-developed no acute respiratory distress. No documented fevers. EYES: No icterus sclerae, no conjunctivitis. EARS, NOSE, MOUTH, THROAT, and FACE: No sore throat, lymphadenopathy, carotid bruits or deformity. RESPIRATORY: Positive shortness of breath cough wheezes. CARDIOVASCULAR: No CP, Palpitation, PND, Orthopnea, or angina. GASTROINTESTINAL: No Abd pain, Nausea or vomiting, no Diarrhea or constipation, No GI Bleed, no distention or masses. GENITOURINARY: Worsening chronic incontinence. INTEGUMENT/BREAST: Negative for any muscular injury with mild osteoarthritis.. HEMATOLOGIC/LYMPHATIC: Negative for bleed or purpura. MUSCULOSKELTAL: Negative for Myalgia or arthralgia. NEURLOGICAL: No LOC, Sz or syncope, blurred vision dizziness or abnormality.. BEHAVIORAL/PSYCH: Worsening dementia ENDOCRINE: Negative. PHYSICAL EXAMINATION General Appearance: Alert, cooperative, no distress, appears stated age. Appears to be in no acute distress. Neck HEENT: Supple, no lymphadenopathy, no thyroid enlargement, no carotid bruits. Lungs: Decreased mobility with worsening of the right lower lobe with mild bronchial abnormality along with rhonchi and mild wheezes. Chest Wall: Decrease expansion with deep inspiration no tenderness and no defo rmity was found on exam, no costochondral pain or discomfort. Heart: Regular rate and rhythm, S1, S2 normal, 2/6 systolic ejection murmur, rub or gallop. Back: Symmetric, no curvature, ROM normal, no CVA tenderness. Abdomen: Soft, non-tender, bowel sounds active all four quadrants, no masses, no organomegaly. No abdominal tenderness. Extremities: Extremities normal, atraumatic, no cyanosis or edema. Pulses: 2+ and symmetric. Skin: Skin color, texture, tugor normal, no rashes or lesions. Neurologic: Alert oriented severely confuse, cranial nerves II through XII intact, positive generalized weakness. ASSESSMENT AND PLAN 1 sepsis: Most likely from right lower lobe pneumonia and UTI continue gram- negative coverage at this point infectious disease consultation and awaiting for final culture. Patient will be switched to Zosyn and Levaquin. Consult Dr. Bermudez appreciated. 2 right lower lobe pneumonia, gram-negative. Continue Levaquin and Zosyn, consult Dr. Bermudez from pulmonary medicine, continue DuoNeb and O2. 3 urinary tract infection and sepsis: Urine cultures finalized with no growth. 4 COPD, without exacerbation. 5 hypertension. Continue Lasix. 6 chronic gastroparesis: Patient remain on pantoprazole and Reglan continue medication. 7 BPH: Patient remain on tamsulosin. 8 recurrent depression on sertraline 25 mg a day. 9 acute kidney injury: Most likely ATN continue gentle hydration treat sepsis and recheck patient BUN/creatinine. 10 DVT prophylaxis: Patient be on heparin subcutaneous. 11 GI prophylaxis: Patient will be on pantoprazole. CODE STATUS: Full code. DISCHARGE PLAN Return to [facility] on the [place] on . Impression and plan of care have been directed as dictated by the signing physician. Karon Hubbard nurse practitioner acting as scribe for signing physician. Objective - Vital Signs Vital signs: Vital Signs Temp 98.1 F 06/11/20 05:00 Pulse 67 06/11/20 05:00 Resp 20 06/11/20 05:00 BP 123/78 06/11/20 05:00 Pulse Ox 98 06/11/20 05:00 Intake & Output 06/10/20 06/11/20 06/11/20 18:59 06:59 18:59 Intake Total 1360 Balance 1360 Intake: Oral 1360 Other: Voiding Method Diaper Diaper # Voids 1 3 - Labs CBC & Chem 7: 06/11/20 08:37 06/11/20 08:37 Labs: Abnormal Lab Results - Last 24 Hours (Table) 06/10/20 Range/Units 04:47 Sodium 152 H (135-145) mmol/L Chloride 119 H (96-109) mmol/L BUN/Creatinine Ratio 25.00 H (12.00-20.00) Ratio Calcium 8.2 L (8.7-10.3) mg/dL Total Bilirubin 0.2 L (0.3-1.2) mg/dL Total Protein 5.0 L (6.2-8.2) g/dL Albumin 2.50 L (3.80-4.90) g/dL Albumin/Globulin Ratio 1.00 L (1.60-3.17) g/dL Microbiology - Last 24 Hours (Table) 06/08/20 00:31 Urine Culture - Final Urine,Clean Catch 06/01/20 00:09 Blood Culture Gram Stain - Preliminary Blood Blood Culture - Preliminary Coagulase Negative Staph
[2020-06-11] MEDS: TAMSULOSIN 0.4 MG CAP.ER.24H PO SCH (21:37)
[2020-06-12] MEDS: DEXTROSE 5%-0.45% NACL 1,000 ML IV SCH (06:02)
[2020-06-12] MEDS: FUROSEMIDE 20 MG TAB PO SCH ×2 (06:02→12:00)
[2020-06-12] MEDS: PANTOPRAZOLE 40 MG TABLET PO SCH (06:02)
--- NOTE | 2020-06-12 07:57 | P.DS ---
Providers Date of admission: 06/09/20 00:51 Expected date of discharge: 06/13/20 Attending physician: Marty Maynard Consults: 06/10/20 13:46 Consult Physician Routine Consulting Provider: Romie Bermudez Consult Reason/Comments: pneumonia Do you want consulting provider notified?: Yes Primary care physician: Ro Baer [facility] Course: HISTORY OF PRESENT ILLNESS 75-year-old male one of Dr. Baer's patient at [facility] who brought to the hospital emergency room for possible sepsis patient was having fever or chills increased shortness of breath with worsening symptom with decrease left left responsiveness along with worsening dementia in mentation. Patient was seen and evaluated demurs department elevated white blood cell d-dimer was elevated as well patient was in acute kidney failure C-reactive protein was quite bit high patient urine was very positive cultures pending at this point blood culture was done as well. CT of the lung came back positive for mild pericardial effusion vascular abnormality similar to prior study had diffuse soft tissue surrounding the pulmonary artery and the bronchial structure most prominent of right lower lobe pneumonia. No sign of PE was found time. Patient will be treated for sepsis caused by UTI and right lower lobe pneumonia. High possibility of aspiration at this point. His influenza and Covid came back negative. 06/10: Patient is seen today on the MedSurg floor. He has been afebrile, heart rate 66, blood pressure 151/88, pulse ox 100% on 4 L nasal cannula. Repeat blood work reveals WBC 9.9, hemoglobin 8.9, platelet count 242. Sodium 152, potassium 3.8, chloride 119. Creatinine 1. Covid 19 not detected. Blood cultures coag-negative staph and urine culture finalized with skin zackery. IV fluids will be changed to D5.45 normal saline. Recheck laboratory studies in the morning. 06/11: Patient has been seen by Dr. Bermudez. No new complaints or concerns overnight. He has been afebrile, heart rate 67, blood pressure 123/70, pulse ox 98% on 3 L nasal cannula. Repeat blood work reveals sodium 143, potassium 3.3 will be replaced, chloride 114, CO2 26, BUN 21 creatinine 1.02. WBC 9.2, hemoglobin 9.4. Anticipate discharge back to [facility] tomorrow in stable condition. 06/12: Patient continues to have some congestion. He is eating breakfast on his own. We will have speech therapy evaluation. Discharge back to [facility] will be held until tomorrow. Repeat blood work reveals WBC 7.9, hemoglobin 8. Electrolytes normal. Creatinine 1. Anticipate discharge back to [facility] tomorrow. 06/13: She has been seen by speech therapy and modified barium swallow will be ordered for today. Speech therapy following modified barium swallow recommended ground consistency for food and thin liquids. Patient will need follow-up at the [facility] with speech therapy. Patient is less congested today. He has been afebrile, heart rate 75, blood pressure 110/65, pulse ox 91% on 3 L nasal cannula. WBC 8.9, hemoglobin 8.7. Has been followed during his hospitalization by Dr. Bermudez. Patient will be discharged back to [facility] today in stable condition. ASSESSMENT AND PLAN 1 sepsis: Most likely from right lower lobe pneumonia and UTI 2 right lower lobe pneumonia, gram-negative 3 urinary tract infection and sepsis 4 COPD, without exacerbation. 5 hypertension 6 chronic gastroparesis 7 BPH 8 recurrent depression 9 acute kidney injury: Most likely ATN DISCHARGE PLAN Return to [facility] on the [place] on Tuesday. Impression and plan of care have been directed as dictated by the signing physician. Karon Hubbard nurse practitioner acting as scribe for signing physician. Patient Condition at Discharge: Good Plan - Discharge Summary Discharge Rx Participant: No New Discharge Prescriptions: New Levofloxacin [Levaquin] 500 mg PO DAILY 5 Days #5 tab Continue Budesonide/Formoterol Fumarate [Symbicort 160-4.5 Mcg Inhaler] 2 puff INHALATION RT-BID@0900,2100 Docusate [Colace] 100 mg PO DAILY@0900 Ocusoft Lid Scrub Pad 1 applic BOTH EYES HS@2100 Tamsulosin [Flomax] 0.4 mg PO HS@2100 Albuterol Sulfate [Proventil Hfa] 1 puff INHALATION RT-QID PRN PRN Reason: Wheezing Ensure Clear 240 ml PO PC-TID Sertraline HCl [Zoloft] 25 mg PO DAILY@0900 Cholecalciferol [Vitamin D3 (25 Mcg = 1000 Iu)] 2,000 unit PO DAILY@0900 Pantoprazole [Protonix] 40 mg PO DAILY@0600 Furosemide [Lasix] 20 mg PO BID@0600,1200 Potassium Chloride ER [K-Dur 10] 10 meq PO DAILY@0900 Loperamide [Imodium] 2 - 4 mg PO QID PRN MDD 4 caps PRN Reason: Diarrhea Metoclopramide HCl [Reglan] 5 mg PO Q12H PRN PRN Reason: emesis Discharge Medication List Budesonide/Formoterol Fumarate [Symbicort 160-4.5 Mcg Inhaler] 2 puff INHALATION RT-BID@0900,209901/03/17 [History] Docusate [Colace] 100 mg PO DAILY@89901/03/17 [History] Ocusoft Lid Scrub Pad 1 applic BOTH EYES HS@209901/03/17 [History] Tamsulosin [Flomax] 0.4 mg PO HS@209901/03/17 [History] Albuterol Sulfate [Proventil Hfa] 1 puff INHALATION RT-QID PRN 12/07/19 [History] Cholecalciferol [Vitamin D3 (25 Mcg = 1000 Iu)] 2,000 unit PO DAILY@89912/07/19 [History] Ensure Clear 240 ml PO PC-TID 12/07/19 [History] Furosemide [Lasix] 20 mg PO BID@0600,1200 12/07/19 [History] Pantoprazole [Protonix] 40 mg PO DAILY@59912/07/19 [History] Sertraline HCl [Zoloft] 25 mg PO DAILY@89912/07/19 [History] Potassium Chloride ER [K-Dur 10] 10 meq PO DAILY@0900 02/27/20 [History] Loperamide [Imodium] 2 - 4 mg PO QID PRN MDD 4 caps 06/09/20 [History] Metoclopramide HCl [Reglan] 5 mg PO Q12H PRN 06/09/20 [History] Levofloxacin [Levaquin] 500 mg PO DAILY 5 Days #5 tab 06/13/20 [Rx] Follow up Appointment(s)/Referral(s): Ro Baer MD [Primary Care Provider] - 1 Week (at [facility]) Discharge Disposition: TRANSFER TO [facility]
[2020-06-12 08:12] LABS: Anisocytosis Slight; HCT 27.4 % (39.0-53.0); Hypochromasia Marked; MCH 25.3 pg (25.0-35.0); MCHC 29.3 g/dL (31.0-37.0); MCV 86.3 fL (80.0-100.0); Mean Platelet Volume 7.3; Platelet Count 286 k/uL (150-450); RBC 3.18 m/uL (4.30-5.90); RDW 16.6 % (11.5-15.5); WBC 7.9 k/uL (3.8-10.6)
--- NOTE | 2020-06-12 08:17 | P.PN ---
Subjective Progress Note Date: 06/12/20 HISTORY OF PRESENT ILLNESS 75-year-old male one of Dr. Baer's patient at [facility] who brought to the [facility] emergency room for possible sepsis patient was having fever or chills increased shortness of breath with worsening symptom with decrease left left responsiveness along with worsening dementia in mentation. Patient was seen and evaluated demurs department elevated white blood cell d-dimer was elevated as well patient was in acute kidney failure C-reactive protein was quite bit high patient urine was very positive cultures pending at this point blood culture was done as well. CT of the lung came back positive for mild pericardial effusion vascular abnormality similar to prior study had diffuse soft tissue surrounding the pulmonary artery and the bronchial structure most prominent of right lower lobe pneumonia. No sign of PE was found time. Patient will be treated for sepsis caused by UTI and right lower lobe pneumonia. High possibility of aspiration at this point. His influenza and Covid came back negative. 06/10: [facility] He has been afebrile, heart rate 66, blood pressure 151/88, pulse ox 100% on 4 L nasal cannula. Repeat blood work reveals WBC 9.9, hemoglobin 8.9, platelet count 242. Sodium 152, potassium 3.8, chloride 119. Creatinine 1. Covid 19 not detected. Blood cultures coag-negative staph and urine culture finalized with skin zackery. IV fluids will be changed to D5.45 normal saline. Recheck laboratory studies in the morning. 06/11: Patient has been seen by Dr. Bermudez. No new complaints or concerns overnight. He has been afebrile, heart rate 67, blood pressure 123/70, pulse ox 98% on 3 L nasal cannula. Repeat blood work reveals sodium 143, potassium 3.3 will be replaced, chloride 114, CO2 26, BUN 21 creatinine 1.02. WBC 9.2, hemoglobin 9.4. Anticipate discharge back to [facility] tomorrow in stable condition. 06/12: Patient continues to have some congestion. He is eating breakfast on his own. We will have speech therapy evaluation. Discharge back to [facility] will be held until tomorrow. Repeat blood work reveals WBC 7.9, hemoglobin 8. Electrolytes normal. Creatinine 1. Anticipate discharge back to [facility] tomorrow. REVIEW OF SYSTEMS CONSTITUTIONAL: Well-developed no acute respiratory distress. No documented fevers. EYES: No icterus sclerae, no conjunctivitis. EARS, NOSE, MOUTH, THROAT, and FACE: No sore throat, lymphadenopathy, carotid bruits or deformity. RESPIRATORY: Positive shortness of breath cough wheezes. Congestion. CARDIOVASCULAR: No CP, Palpitation, PND, Orthopnea, or angina. GASTROINTESTINAL: No Abd pain, Nausea or vomiting, no Diarrhea or constipation, No GI Bleed, no distention or masses. GENITOURINARY: Worsening chronic incontinence. INTEGUMENT/BREAST: Negative for any muscular injury with mild osteoarthritis.. HEMATOLOGIC/LYMPHATIC: Negative for bleed or purpura. MUSCULOSKELTAL: Negative for Myalgia or arthralgia. NEURLOGICAL: No LOC, Sz or syncope, blurred vision dizziness or abnormality.. BEHAVIORAL/PSYCH: Worsening dementia ENDOCRINE: Negative. PHYSICAL EXAMINATION General Appearance: Alert, cooperative, no distress, appears stated age. Kaleb ears to be in no acute distress. Neck HEENT: Supple, no lymphadenopathy, no thyroid enlargement, no carotid bruits. Lungs: Decreased mobility with worsening of the right lower lobe with mild bronchial abnormality along with rhonchi and mild wheezes. Chest Wall: Decrease expansion with deep inspiration no tenderness and no deformity was found on exam, no costochondral pain or discomfort. Heart: Regular rate and rhythm, S1, S2 normal, 2/6 systolic ejection murmur, rub or gallop. Back: Symmetric, no curvature, ROM normal, no CVA tenderness. Abdomen: Soft, non-tender, bowel sounds active all four quadrants, no masses, no organomegaly. No abdominal tenderness. Extremities: Extremities normal, atraumatic, no cyanosis or edema. Pulses: 2+ and symmetric. Skin: Skin color, texture, tugor normal, no rashes or lesions. Neurologic: Alert oriented severely confuse, cranial nerves II through XII inta ct, positive generalized weakness. ASSESSMENT AND PLAN 1 sepsis: Most likely from right lower lobe pneumonia, possible aspiration pneumonia and UTI continue gram-negative coverage at this point infectious disease consultation and awaiting for final culture. Continue Zosyn and Levaquin. Consult Dr. Bermudez appreciated. Consult speech therapy regarding aspiration. 2 right lower lobe pneumonia, gram-negative. Continue Levaquin and Zosyn, consult Dr. Bermudez from pulmonary medicine, continue DuoNeb and O2. 3 urinary tract infection and sepsis: Urine cultures finalized with no growth. 4 COPD, without exacerbation. 5 hypertension. Continue Lasix. 6 chronic gastroparesis: Patient remain on pantoprazole and Reglan continue medication. 7 BPH: Patient remain on tamsulosin. 8 recurrent depression on sertraline 25 mg a day. 9 acute kidney injury: Most likely ATN continue gentle hydration treat sepsis and recheck patient BUN/creatinine. 10 DVT prophylaxis: Patient be on heparin subcutaneous. 11 GI prophylaxis: Patient will be on pantoprazole. CODE STATUS: Full code. DISCHARGE PLAN Return to [facility] on the [place] on Tuesday Impression and plan of care have been directed as dictated by the signing physician. Karon Hubbard nurse practitioner acting as scribe for signing phys ician. Objective - Vital Signs Vital signs: Vital Signs Temp 98.9 F 06/12/20 05:00 Pulse 58 L 06/12/20 05:00 Resp 20 06/12/20 05:00 BP 114/73 06/12/20 05:00 Pulse Ox 96 06/12/20 05:00 Intake & Output 06/11/20 06/12/20 06/12/20 18:59 06:59 18:59 Intake Total 400 1650 Balance 400 1650 Intake: Intake, IV Titration 250 Amount Dextrose 5%-0.45% NaCl 1, 150 000 ml @ 50 mls/hr IV . Q20H [facility] Rx#:[id number] Piperacillin-Tazobactam 3 100 .375 gm In Sodium Chloride 0.9% 100 ml @ 25 mls/hr IVPB Q8HR [facility] Rx# :[id number] Oral 400 1400 Other: Voiding Method Diaper Diaper # Voids 1 3 # Bowel Movements 0 - Labs CBC & Chem 7: 06/12/20 07:45 06/12/20 07:45 Labs: Abnormal Lab Results - Last 24 Hours (Table) 06/11/20 06/11/20 06/12/20 Range/Units 08:37 08:37 07:45 RBC 3.69 L 3.18 L (4.30-5.90) m/uL Hgb 9.4 L 8.0 L (13.0-17.5) gm/dL Hct 31.8 L 27.4 L (39.0-53.0) % MCHC 29.5 L 29.3 L (31.0-37.0) g/dL RDW 16.6 H 16.6 H (11.5-15.5) % Potassium 3.3 L (3.5-5.1) mmol/L Chloride 114 H (98-107) mmol/L BUN 21 H (9-20) mg/dL Glucose 136 H (74-99) mg/dL Calcium 8.3 L (8.4-10.2) mg/dL Total Protein 5.3 L (6.3-8.2) g/dL Albumin 2.3 L (3.5-5.0) g/dL
[2020-06-12] MEDS: PIPERACILLIN-TAZOBACTAM 3.375 GM in SODIUM CHLORIDE 0.9% 100 ML IVPB SCH ×3 (10:28→23:21)
[2020-06-12] MEDS: SERTRALINE 25 MG TAB PO SCH (10:28)
[2020-06-12] MEDS: CHOLECALCIFEROL 1,000 UNIT TAB PO SCH (10:28)
[2020-06-12] MEDS: POTASSIUM CHLORIDE ER 10 MEQ TAB.ER.PRT PO SCH (10:29)
[2020-06-12] MEDS: DOCUSATE 100 MG CAP PO SCH (10:29)
[2020-06-12 10:57] LABS: African American GFR (CKD) 84.4 (60.0-200.0); Albumin 2.5 g/dL (3.80-4.90); Albumin/Globulin Ratio 0.96 (1.60-3.17); Calcium 8.4 mg/dL (8.7-10.3); Globulin 2.6 g/dL (1.6-3.3); Non-African American GFR(CKD) 72.8 (60.0-200.0); Potassium 3.7 mmol/L (3.5-5.5); Total Bilirubin 0.2 mg/dL (0.2-1.2); Total Protein 5.1 g/dL (6.2-8.2)
[2020-06-12] MEDS: LEVOFLOXACIN 500MG-D5W PMX 500 MG in DEXTROSE/WATER 1 100ML.BAG IVPB SCH (14:38)
--- NOTE | 2020-06-12 16:34 | P.PN ---
Subjective Progress Note Date: 06/12/20 Principal diagnosis: Sepsis Right lower lobe aspiration pneumonia Acute UTI Acute hypoxic respiratory failure Worsening of altered mental status likely related to severe sepsis Advanced dementia and thymus disease Acute kidney injury Hypernatremia 06/12/2020, patient seen and evaluated examined undergoing session with the speech therapy, denies any chest pain, more awake and communicative today saturations 99% on 3 L 06/11/2020, patient seen eval examined during the rounds labs reviewed medications reviewed, if still congested, arousable, mostly nonverbal and nonc ommunicative, saturation is 99% on 3 L nasal cannula, down from 4 L, hemodynamic stable, remains afebrile, urine negative and blood culture have been positive for gram-positive cocci in clusters, patient remains on broad-spectrum antibiotics including Levaquin and Zosyn, initial blood culture were positive for staph epi, Patient seen eval examined on 6 floor not much data obtained from the patient as overall poor historian, most of the data has been obtained from the chart, patient admitted into the hospital with fevers chills and worsening of mental status, patient is a resident of extended care facility at [facility] Dr. Loomis for primary care activity, patient has been admitted from the emergency department with fever and chills, overall patient does have a history of dementia but however at [facility] noted to be more unresponsive, labs performed suggestive of sepsis with high d-dimer urine appears infected cultures are pending, computed tomography scan of the chest suggestive of pericardial effusion right lower lobe pneumonia negative for pulmonary embolism, his influenza and covert however are negative, pneumonia appears to be aspiration related likely gram-negative, white cell count is elevated on arrival 12,900, hyponatremia sodium 152 also noted, patient noted to have evidence of acute kidney injury with GFR of the 46%, blood cultures preliminary positive for coag -negative staph likely contaminant urine culture results are pending Objective - Vital Signs Vital signs: Vital Signs Temp 98.4 F 06/12/20 12:38 Pulse 83 06/12/20 12:38 Resp 20 06/12/20 12:38 BP 113/72 06/12/20 12:38 Pulse Ox 99 06/12/20 12:38 Intake & Output 06/11/20 06/12/20 06/12/20 18:59 06:59 18:59 Intake Total 400 1650 900 Balance 400 1650 900 Intake: Intake, IV Titration 250 900 Amount Dextrose 5%-0.45% NaCl 1, 150 800 000 ml @ 50 mls/hr IV . Q20H [facility] Rx#:[id number] Piperacillin-Tazobactam 3 100 100 .375 gm In Sodium Chloride 0.9% 100 ml @ 25 mls/hr IVPB Q8HR [facility] Rx# :[id number] Oral 400 1400 Other: Voiding Method Diaper Diaper Diaper # Voids 1 3 # Bowel Movements 0 - Exam - Constitutional General appearance: average body habitus, cooperative, disheveled - EENT Eyes: PERRLA Ears: bilateral: normal - Neck Neck: normal ROM Carotids: bilateral: upstroke normal - Respiratory Respiratory: bilateral: diminished, rales - Cardiovascular Rhythm: regular Heart sounds: normal: S1, S2 - Gastrointestinal General gastrointestinal: normal bowel sounds - Musculoskeletal Musculoskeletal: generalized weakness, strength equal bilaterally - Labs CBC & Chem 7: 06/12/20 07:45 06/12/20 07:45 Labs: Abnormal Lab Results - Last 24 Hours (Table) 06/12/20 06/12/20 Range/Units 07:45 07:45 RBC 3.18 L (4.30-5.90) m/uL Hgb 8.0 L (13.0-17.5) gm/dL Hct 27.4 L (39.0-53.0) % MCHC 29.3 L (31.0-37.0) g/dL RDW 16.6 H (11.5-15.5) % Calcium 8.4 L (8.7-10.3) mg/dL AST 39 H (14-35) U/L Total Protein 5.1 L (6.2-8.2) g/dL Albumin 2.50 L (3.80-4.90) g/dL Albumin/Globulin Ratio 0.96 L (1.60-3.17) g/dL Microbiology - Last 24 Hours (Table) 06/01/20 00:09 Blood Culture Gram Stain - Final Blood Blood Culture - Final Staph hominis sub sp. hominis Assessment and Plan Assessment: Sepsis Bacteremia gram-positive cocci in cluster appears to be staph epi however final ID and sensitivities pending since the patient is afebrile and white cell count is coming down and we'll hold on adding vancomycin Right lower lobe aspiration pneumonia Acute UTI Acute hypoxic respiratory failure Worsening of altered mental status likely related to severe sepsis Advanced dementia and thymus disease Acute kidney injury Hypernatremia Plan: Continue IV antibiotic Gentle hydration with half normal saline Aspiration precautions Follow-up on urine and blood culture and sputum culture Monitor renal functions closely Monitor sodium closely Further recommendations pending plan of care as per clinical response of the patient Time with Patient: Greater than 30
[2020-06-12] MEDS: TAMSULOSIN 0.4 MG CAP.ER.24H PO SCH (20:08)
[2020-06-13] MEDS: DEXTROSE 5%-0.45% NACL 1,000 ML IV SCH (03:28)
[2020-06-13] MEDS: FUROSEMIDE 20 MG TAB PO SCH (05:35)
[2020-06-13] MEDS: PANTOPRAZOLE 40 MG TABLET PO SCH (05:35)
[2020-06-13 07:27] LABS: Anisocytosis Slight; HCT 28.2 % (39.0-53.0); HGB 8.7 gm/dL (13.0-17.5); Hypochromasia Marked; MCH 25.8 pg (25.0-35.0); MCHC 30.7 g/dL (31.0-37.0); MCV 83.9 fL (80.0-100.0); Mean Platelet Volume 6.4; Platelet Count 262 k/uL (150-450); RBC 3.36 m/uL (4.30-5.90); RDW 16.7 % (11.5-15.5); WBC 8.9 k/uL (3.8-10.6)
[2020-06-13] MEDS: SERTRALINE 25 MG TAB PO SCH (09:22)
[2020-06-13] MEDS: POTASSIUM CHLORIDE ER 10 MEQ TAB.ER.PRT PO SCH (09:22)
[2020-06-13] MEDS: DOCUSATE 100 MG CAP PO SCH (09:22)
[2020-06-13] MEDS: CHOLECALCIFEROL 1,000 UNIT TAB PO SCH (09:22)
--- NOTE | 2020-06-13 12:08 | FL ---
EXAMINATION TYPE: FL barium swallow w video DATE OF EXAM: 06/13/2020 COMPARISON: NONE HISTORY: Possible sepsis, worsening dementia, abnormal CT and aspiration pneumonia. FINDINGS: 2 minutes 8 seconds fluoroscopy time, intraoperative image documents the procedure Patient was evaluated in real-time fluoroscopy in the lateral projection while ingesting barium mixe d with liquids and solids. No aspiration noted during exam. Transient laryngeal penetration present. See dictated report from speech pathology.
[2020-06-13] MEDS: PIPERACILLIN-TAZOBACTAM 3.375 GM in SODIUM CHLORIDE 0.9% 100 ML IVPB SCH (12:11)
[2020-06-13 12:51] VITALS: BP 142/87; PULSE 77; RESP 22; TEMP 97.7
--- NOTE | 2020-06-13 15:01 | P.PN ---
Subjective Progress Note Date: 06/13/20 Principal diagnosis: Sepsis Right lower lobe aspiration pneumonia Acute UTI Acute hypoxic respiratory failure Worsening of altered mental status likely related to severe sepsis Advanced dementia and thymus disease Acute kidney injury Hypernatremia 06/13/2020, patient seen eval examined during the rounds labs reviewed medications reviewed, patient underwent video-assisted swallowing evaluationsignificant aspiration was noted, for details refer to speech and swallow evaluation notes, patient is being planned for discharge on oral antibiotics agree with discharge planning back to [facility] 06/12/2020, patient seen and evaluated examined undergoing session with the speech therapy, denies any chest pain, more awake and communicative today saturations 99% on 3 L 06/11/2020, patient seen eval examined during the rounds labs reviewed medications reviewed, if still congested, arousable, mostly nonverbal and noncommunicative, saturation is 99% on 3 L nasal cannula, down from 4 L, hemodynamic stable, remains afebrile, urine negative and blood culture have been positive for gram-positive cocci in clusters, patient remains on broad-spectrum antibiotics including Levaquin and Zosyn, initial blood culture were positive for staph epi, Patient seen eval examined on 6 floor not much data obtained from the patient as overall poor historian, most of the data has been obtained from the chart, patient admitted into the hospital with fevers chills and worsening of mental status, patient is a resident of extended care facility at [facility] Dr. Loomis for primary care activity, patient has been admitted from the emergency department with fever and chills, overall patient does have a history of dementia but however at [facility] noted to be more unresponsive, labs performed suggestive of sepsis with high d-dimer urine appears infected cultures are pending, computed tomography scan of the chest suggestive of pericardial effusion right lower lobe pneumonia negative for pulmonary embolism, his influenza and covert however are negative, pneumonia appears to be aspiration related likely gram-negative, white cell count is elevated on arrival 12,900, hyponatremia sodium 152 also noted, patient noted to have evidence of acute kidney injury with GFR of the 46%, blood cultures preliminary positive for coag -negative staph likely contaminant urine culture results are pending Objective - Vital Signs Vital signs: Vital Signs Temp 97.7 F 06/13/20 12:50 Pulse 77 06/13/20 12:50 Resp 22 06/13/20 12:50 BP 142/87 06/13/20 12:50 Pulse Ox 100 06/13/20 12:50 Intake & Output 06/12/20 06/13/20 06/13/20 18:59 06:59 18:59 Intake Total 900 950 Balance 900 950 Intake: Intake, IV Titration 900 650 Amount Dextrose 5%-0.45% NaCl 1, 800 550 000 ml @ 50 mls/hr IV . Q20H [facility] Rx#:[id number] Piperacillin-Tazobactam 3 100 100 .375 gm In Sodium Chloride 0.9% 100 ml @ 25 mls/hr IVPB Q8HR [facility] Rx# :[id number] Oral 300 Other: Voiding Method Diaper Diaper # Voids 4 # Bowel Movements 0 - Exam - Constitutional General appearance: average body habitus, cooperative, disheveled - EENT Eyes: PERRLA Ears: bilateral: normal - Neck Neck: normal ROM Carotids: bilateral: upstroke normal - Respiratory Respiratory: bilateral: diminished, rales - Cardiovascular Rhythm: regular Heart sounds: normal: S1, S2 - Gastrointestinal General gastrointestinal: normal bowel sounds - Musculoskeletal Musculoskeletal: generalized weakness, strength equal bilaterally - Labs CBC & Chem 7: 06/13/20 06:46 06/12/20 07:45 Labs: Abnormal Lab Results - Last 24 Hours (Table) 06/13/20 Range/Units 06:46 RBC 3.36 L (4.30-5.90) m/uL Hgb 8.7 L (13.0-17.5) gm/dL Hct 28.2 L (39.0-53.0) % MCHC 30.7 L (31.0-37.0) g/dL RDW 16.7 H (11.5-15.5) % Microbiology - Last 24 Hours (Table) 06/01/20 00:09 Blood Culture Gram Stain - Final Blood Blood Culture - Final Staph hominis sub sp. hominis Assessment and Plan Assessment: Sepsis Bacteremia gram-positive cocci in cluster appears to be staph epi however final ID and sensitivities pending since the patient is afebrile and white cell count is coming down and we'll hold on adding vancomycin Right lower lobe aspiration pneumonia Acute UTI Acute hypoxic respiratory failure Worsening of altered mental status likely related to severe sepsis Advanced dementia and thymus disease Acute kidney injury Hypernatremia Plan: Continue antibiotic Agree with discharge planning Aspiration precautions Follow-up on urine and blood culture and sputum culture Monitor renal functions closely Monitor sodium closely Further recommendations pending plan of care as per clinical response of the patient Time with Patient: Greater than 30
== END 2020-06-13 14:16 | DRG 871 ==
LOC: EC 23:08 → 4SSUR 06-09 00:51 → 6NMEDSUR 06-09 17:13 → 3NCARDOBS 06-13 04:56 → 6NMEDSUR 06-13 05:28
PROVIDERS: ADMIT Internal Medicine Geriatric Medicine; ATTEND Internal Medicine Geriatric Medicine
DX: A41.59 Other Gram-negative sepsis (principal); J15.6 Pneumonia due to other Gram-negative bacteria; N17.0 Acute kidney failure with tubular necrosis; J96.01 Acute respiratory failure with hypoxia; J69.0 Pneumonitis due to inhalation of food and vomit; E87.0 Hyperosmolality and hypernatremia; F33.9 Major depressive disorder, recurrent, unspecified; J44.0 Chronic obstructive pulmonary disease with (acute) lower respiratory infection; N39.0 Urinary tract infection, site not specified; E86.0 Dehydration; F17.200 Nicotine dependence, unspecified, uncomplicated; F03.90 Unspecified dementia, unspecified severity, without behavioral disturbance, psychotic disturbance, mood disturbance, and anxiety; Z20.828 Contact with and (suspected) exposure to other viral communicable diseases; I11.0 Hypertensive heart disease with heart failure; N40.0 Benign prostatic hyperplasia without lower urinary tract symptoms; K21.9 Gastro-esophageal reflux disease without esophagitis; M19.90 Unspecified osteoarthritis, unspecified site; K31.84 Gastroparesis; I50.9 Heart failure, unspecified; R65.20 Severe sepsis without septic shock; Z79.51 Long term (current) use of inhaled steroids; Z79.899 Other long term (current) drug therapy; Z82.49 Family history of ischemic heart disease and other diseases of the circulatory system; Z81.8 Family history of other mental and behavioral disorders; Z98.890 Other specified postprocedural states
CPT/HCPCS: 36415; 71045; 71275; 74230; 80053; 81001; 82728; 83605; 83615; 83735; 84145; 85025; 85027; 85379; 85610; 85730; 86140; 87040; 87077; 87086; 87186; 87502; 87635; 93005; 96361; 96365; 96366; 96375; 99285